=== PATIENT | female | born 1950 | race Caucasian/White ===

== ENCOUNTER 2017-09-18 21:35 | Emergency (ER) | payer MEDICARE, OTHER, SELFPAY | END 2017-09-19 01:28 | disposition home or self-care (01) | PROVIDERS: Emergency Provider Emergency Medicine; Family Provider Internal Medicine; PCP Internal Medicine; Visit Provider Emergency Medicine | DX: R07.9 Chest pain, unspecified (principal) | CPT/HCPCS: 71010; 71045; 71260; 71275; 80053; 81003; 82150; 83690; 83735; 84484; 85025; 85610; 85730; 93005; 93010; 99058; 99285; J1200; J2930; Q9967 ==

== ENCOUNTER 2019-11-02 13:22 | Emergency (ER) | payer MEDICARE, OTHER, SELFPAY ==
[2019-11-02] VITALS (7 sets, daily range): BP systolic 149–183; BP diastolic 72–83; PULSE 60–67; RESP 17–18; TEMP 36.8; O2SAT 94–99; BMI 35.3
--- NOTE | 2019-11-02 13:39 | ED.BACK ---
HPI - Back Pain/Injury <Shira Coe, PIPE FINISHER-BC - Last Filed: 11/02/19 19:36> General Chief Complaint: Back Pain/Injury Stated Complaint: back pain Time Seen by Provider: 11/02/19 13:29 Source: EMS Mode of arrival: EMS Limitations: no limitations History of Present Illness HPI Narrative: The patient is a 69-year-old female nonsmoker with a complicated medical history including atrial fibrillation on flecainide, pacemaker, hypertension, thunderclap headaches who presents with a chief complaint of right-sided flank and back pain that was so severe she could barely move. She states she was recently seen at [facility] in [facility] on 10/28 and diagnosed with a kidney infection. She states that she has been taking her antibiotics as needed. She took her tramadol this morning approximately 6:00 a.m., and states that her right-sided flank pain got so bad she could not walk. She denies any incontinence of bowel, incontinence of bladder numbness in her groin. She denies any numbness or tingling. She denies any falls or trauma. She denies any fevers. She has not taken anything for pain since 6:00 a.m.. Related Data Home Medications Medication Instructions Recorded Confirmed Valsartan (#DIOVAN) 80 mg PO QDAY #0 02/06/12 levothyroxine #0 02/06/12 metoprolol tartrate 25 mg PO BID #0 02/06/12 lansoprazole 30 mg PO QDAY #0 06/24/12 LIDOCAINE (LIDODERM) 5 % TOPICAL PRN PRN #0 01/13/16 flecainide 150 mg PO BID #0 tab 03/12/16 aspirin 81 mg PO QDAY #0 03/14/16 flecainide 50 mg PO BID #0 03/14/16 Previous Rx's Medication Instructions Recorded hydrocodone-acetaminophen [[place]] 1 tab PO Q4HP PRN #7 tab 09/17/16 cyclobenzaprine 10 mg PO Q8HP PRN #20 tab 11/19/16 amitriptyline 25 mg PO HS #90 tab 04/24/17 topiramate [Topamax] 0 PO SEE INSTRUCTIONS #60 tab 04/24/17 cyclobenzaprine 10 mg PO TID PRN #20 tab 11/02/19 hydrocodone-acetaminophen [[place]] 1 tab PO Q4-6H PRN #10 tab 11/02/19 lidocaine 1 patch TOP DAILY PRN #15 each 11/02/19 prednisone 40 mg PO DAILY #10 tab 11/02/19 Allergies Allergy/AdvReac Type Severity Reaction Status Date / Time celecoxib [CELECOXIB] Allergy Unknown Verified 11/02/19 13:35 lactobacillus [LACTOBACILLUS] Allergy Unknown Verified 11/02/19 13:35 morphine [MORPHINE] Allergy Unknown Verified 11/02/19 13:35 oxycodone [OXYCODONE] Allergy Unknown Verified 11/02/19 13:35 IP DYE Allergy Mild Uncoded 11/02/19 13:35 Review of Systems <LING Segal - Last Filed: 11/02/19 19:36> Review of Systems Narrative: GENERAL: Denies chills, fatigue, malaise, fever, sweats. HEENT: Denies sinus pain, ear pain, sore throat, difficulty swallowing, dizziness. RESPIRATORY: Denies dyspnea, cough, wheezing, hemoptysis, sputum. CARDIOVASCULAR: Denies chest pain, palpitations, orthopnea, edema, GASTROINTESTINAL: Denies nausea, vomiting, abdominal pain, diarrhea, constipation, melena. : See HPI MUSCULOSKELETAL: See HPI SKIN: Denies rash, skin lesions, or other NEUROLOGIC: Denies weakness, headache, numbness, change in speech, confusion, seizures, incoordination. PSYCHIATRIC: No concerning psychosocial issues. 12 point review of systems is negative except for those stated above Patient History <LING Segal - Last Filed: 11/02/19 19:36> Surgical History (Updated 10/02/17 @ 06:01 by Conversion Provider) History of carpal tunnel repair History of gastric bypass History of knee replacement History of knee replacement Presence of cardiac pacemaker Status post breast lumpectomy Status post cholecystectomy Status post dilation and curettage Status post surgery (04/09/15) Family History (Updated 01/12/16 @ 00:00 by Conversion Provider) Father Cancer Social History Smoking Status: Never smoker Smoking Status: Never smoker Substance Use Type: does not use Exam <LING Segal - Last Filed: 11/02/19 19:36> Narrative Exam Narrative: GENERAL: Was female lying on stretcher, appears uncomfortable HEAD: Atraumatic. Normocephalic. No temporal or scalp tenderness. EYES: Pupils equal round and reactive. Extraocular motions intact. No scleral icterus. No injection or drainage. ENT: Nose without bleeding, purulent drainage or septal hematoma. Throat without erythema, tonsillar hypertrophy or exudate. Uvula midline. Airway patent. NECK: Trachea midline. No JVD or lymphadenopathy. Supple, nontender, no meningeal signs. CARDIOVASCULAR: Regular rate and rhythm RESPIRATORY: Clear to auscultation. Breath sounds equal bilaterally. No wheezes, rales, or rhonchi. No cough. No increased respiratory effort. No accessory muscle use. GASTROINTESTINAL: Abdomen soft, non-tender, nondistended. No hepato-splenomegaly, or palpable masses. No guarding. EXTREMITIES: No clubbing, cyanosis, or edema. No joint tenderness, effusion, or edema noted. BACK: No pain to CT or L-spine palpation. Pain to right paraspinal muscle palpation. NEURO: AOx3. SKIN: No rash or erythema on visible skin. Initial Vital Signs Initial Vital Signs: Vital Signs Temperature 98.3 F 11/02/19 13:35 Pulse Rate 66 11/02/19 13:35 Respiratory Rate 18 11/02/19 13:35 Blood Pressure 183/83 H 11/02/19 13:35 Pulse Oximetry 97 11/02/19 13:35 <Baldo Hussein DO - Last Filed: 11/03/19 07:08> Initial Vital Signs Initial Vital Signs: Vital Signs Temperature 98.3 F 11/02/19 13:35 Pulse Rate 66 11/02/19 13:35 Respiratory Rate 18 11/02/19 13:35 Blood Pressure 183/83 H 11/02/19 13:35 Pulse Oximetry 97 11/02/19 13:35 Course <LING Segal - Last Filed: 11/02/19 19:36> Orders Ordered: Discontinued Medications Hydrocodone Bitart/Acetaminophen (Vicodin 5/325 Prepack) 1 bottle MISC SEEINSTR ONE Stop: 11/02/19 18:32 Last Admin: 11/02/19 19:17 Dose: 1 bottle Documented by: MEISENB Cyclobenzaprine HCl (Flexeril) 10 mg PO NOW ONE Stop: 11/02/19 13:59 Last Admin: 11/02/19 14:12 Dose: 10 mg Documented by: MEISENLizzie Cyclobenzaprine HCl (Flexeril 10 Mg Prepack) [address] [facility] SEEINSTR ONE Stop: 11/02/19 18:32 Last Admin: 11/02/19 19:17 Dose: 1 bottle Documented by: MEISENLizzie Hydromorphone HCl (Dilaudid) 0.5 mg IV NOW ONE Stop: 11/02/19 16:37 Last Admin: 11/02/19 16:45 Dose: 0.5 mg Documented by: AMRITASENLizzie Sodium Chloride (Normal Saline 0.9%) 1,000 mls @ 1,000 mls/hr IV BOLUS ONE Stop: 11/02/19 14:57 Last Infusion: 11/02/19 15:22 Dose: 0 mls/hr Documented by: Admin: 11/02/19 14:11 Dose: 1,000 mls/hr Documented by: DAVID Lidocaine (Lidoderm) 1 each TOP NOW ONE Stop: 11/02/19 15:58 Last Admin: 11/02/19 16:08 Dose: 1 each Documented by: AMRITASENLizzie Oxycodone/Acetaminophen (Percocet 5/325) 1 tab PO NOW ONE Stop: 11/02/19 14:44 Last Admin: 11/02/19 15:23 Dose: Not Given Documented by: AMRITASENLizzie Prednisone (Deltasone) 60 mg PO NOW ONE Stop: 11/02/19 14:44 Last Admin: 11/02/19 15:02 Dose: 60 mg Documented by: AMRITASENLizzie Tramadol HCl (Ultram) 50 mg PO NOW ONE Stop: 11/02/19 14:49 Last Admin: 11/02/19 15:02 Dose: 50 mg Documented by: AMRITASENLizzie Reevaluation(s) Reevaluation #1: The patient is lying in a stretcher, states that she recently drove [place] the country, sleeping on hotel beds. She is concerned that the possibility of the fact that she slept in the car last night for 2 hours while sitting up impacted her pain and caused her back ?to seize up. Time: 17:21 Vital Signs Vital signs: Vital Signs - 8 hr 11/02/19 13:35 11/02/19 14:10 11/02/19 16:30 Temperature 98.3 F Pulse Rate 66 60 60 Respiratory Rate 18 18 18 Blood Pressure 183/83 H Blood Pressure [Right Arm] 163/73 H 167/74 H Pulse Oximetry 97 99 97 11/02/19 16:31 11/02/19 17:00 11/02/19 17:53 Temperature Pulse Rate 62 67 61 Respiratory Rate 18 18 18 Blood Pressure Blood Pressure [Right Arm] 168/79 H 165/73 H 156/72 H Pulse Oximetry 98 94 11/02/19 19:06 Temperature Pulse Rate 61 Respiratory Rate 17 Blood Pressure Blood Pressure [Right Arm] 149/73 H Pulse Oximetry 97 <Baldo Hussein, DO - Last Filed: 11/03/19 07:08> Orders Ordered: Discontinued Medications Hydrocodone Bitart/Acetaminophen (Vicodin 5/325 Prepack) 1 bottle MISC SEEINSTR ONE Stop: 11/02/19 18:32 Last Admin: 11/02/19 19:17 Dose: 1 bottle Documented by: MEISENB Cyclobenzaprine HCl (Flexeril) 10 mg PO NOW ONE Stop: 11/02/19 13:59 Last Admin: 11/02/19 14:12 Dose: 10 mg Documented by: MEISENB Cyclobenzaprine HCl (Flexeril 10 Mg Prepack) 1 bottle MISC SEEINSTR ONE Stop: 11/02/19 18:32 Last Admin: 11/02/19 19:17 Dose: 1 bottle Documented by: MEISENB Hydromorphone HCl (Dilaudid) 0.5 mg IV NOW ONE Stop: 11/02/19 16:37 Last Admin: 11/02/19 16:45 Dose: 0.5 mg Documented by: MEISENB Sodium Chloride (Normal Saline 0.9%) 1,000 mls @ 1,000 mls/hr IV BOLUS ONE Stop: 11/02/19 14:57 Last Infusion: 11/02/19 15:22 Dose: 0 mls/hr Documented by: Admin: 11/02/19 14:11 Dose: 1,000 mls/hr Documented by: MEISENB Lidocaine (Lidoderm) 1 each TOP NOW ONE Stop: 11/02/19 15:58 Last Admin: 11/02/19 16:08 Dose: 1 each Documented by: MEISENB Oxycodone/Acetaminophen (Percocet 5/325) 1 tab PO NOW ONE Stop: 11/02/19 14:44 Last Admin: 11/02/19 15:23 Dose: Not Given Documented by: DAVID Prednisone (Deltasone) 60 mg PO NOW ONE Stop: 11/02/19 14:44 Last Admin: 11/02/19 15:02 Dose: 60 mg Documented by: DAVID Tramadol HCl (Ultram) 50 mg PO NOW ONE Stop: 11/02/19 14:49 Last Admin: 11/02/19 15:02 Dose: 50 mg Documented by: DAVID Vital Signs Vital signs: Vital Signs - 8 hr 11/02/19 13:35 11/02/19 14:10 11/02/19 16:30 Temperature 98.3 F Pulse Rate 66 60 60 Respiratory Rate 18 18 18 Blood Pressure 183/83 H Blood Pressure [Right Arm] 163/73 H 167/74 H Pulse Oximetry 97 99 97 11/02/19 16:31 11/02/19 17:00 11/02/19 17:53 Temperature Pulse Rate 62 67 61 Respiratory Rate 18 18 18 Blood Pressure Blood Pressure [Right Arm] 168/79 H 165/73 H 156/72 H Pulse Oximetry 98 94 11/02/19 19:06 Temperature Pulse Rate 61 Respiratory Rate 17 Blood Pressure Blood Pressure [Right Arm] 149/73 H Pulse Oximetry 97 MDM - Back Pain/Injury <SYDNIE Segal-BC - Last Filed: 11/02/19 19:36> Lab Data Result diagrams: 11/02/19 14:20 11/02/19 13:55 Labs: Lab Results 11/02/19 11/02/19 11/02/19 Range/Units 13:55 13:55 13:55 WBC (4.5-11.0) X10^3/uL RBC (4.0-5.2) X10^6/uL Hgb (12.0-16.0) g/dL Hct (36-46) % MCV (80-100) fL MCH (26-34) PG MCHC (30-36) % RDW (11.6-14.8) % Plt Count (150-400) X10^3/uL Neut % (Auto) (50-75) % Lymph % (Auto) (25-40) % [place] % (Auto) (3-14) % Eos % (Auto) (2-4) % Baso % (Auto) (0-2) % Neut # (Auto) (1426-3765) /uL Lymph # (Auto) (9190-7081) /uL [place] # (Auto) (0-900) /uL Eos # (Auto) (0-450) /uL Baso # (Auto) (0-100) /uL Sodium 139 (137-145) mmol/L Potassium 4.7 (3.4-5.1) mmol/L Chloride 108 H (98-107) mmol/L Carbon Dioxide 23 (22-32) mmol/L BUN 15 (7-17) mg/dL Creatinine 0.78 (0.52-1.04) mg/dL Estimated GFR > 60.0 (>60) mL/min BUN/Creatinine Ratio 19.2 (6-22) Glucose 105 (80-110) mg/dL Lactate 1.1 (0.7-2.1) mmol/L Calcium 8.8 (8.4-10.2) mg/dL Total Bilirubin 1.2 (0.2-1.3) mg/dL AST 27 (14-36) IU/L ALT 11 (<35) IU/L Alkaline Phosphatase 107 (38-126) U/L Total Protein 6.8 (6.3-8.2) g/dL Albumin 3.7 (3.5-5.0) g/dL Globulin 3.1 (1.7-4.1) g/dL Albumin/Globulin Ratio 1.2 (1.0-2.8) Amylase 55 (30-110) U/L Lipase 85 (23-300) U/L Procalcitonin < 0.05 (<0.5) ng/mL Urine RBC (0-5/HPF) Urine WBC (0-5/HPF) Ur Squamous Epith Cells (0-5/HPF) Ur Transition Epith Cell (0-5/HPF) Urine Bacteria (None) Ur Culture Indicated? 11/02/19 11/02/19 Range/Units 14:20 15:31 WBC 6.5 (4.5-11.0) X10^3/uL RBC 4.39 (4.0-5.2) X10^6/uL Hgb 11.9 L (12.0-16.0) g/dL Hct 36.7 (36-46) % MCV 83.7 (80-100) fL MCH 27.0 (26-34) PG MCHC 32.3 (30-36) % RDW 15.0 H (11.6-14.8) % Plt Count 214 (150-400) X10^3/uL Neut % (Auto) 69.9 (50-75) % Lymph % (Auto) 19.4 L (25-40) % [place] % (Auto) 7.6 (3-14) % Eos % (Auto) 2.4 (2-4) % Baso % (Auto) 0.7 (0-2) % Neut # (Auto) 4500 (8131-6560) /uL Lymph # (Auto) 1300 (9748-1511) /uL [place] # (Auto) 500 (0-900) /uL Eos # (Auto) 200 (0-450) /uL Baso # (Auto) 0 (0-100) /uL Sodium (137-145) mmol/L Potassium (3.4-5.1) mmol/L Chloride (98-107) mmol/L Carbon Dioxide (22-32) mmol/L BUN (7-17) mg/dL Creatinine (0.52-1.04) mg/dL Estimated GFR (>60) mL/min BUN/Creatinine Ratio (6-22) Glucose (80-110) mg/dL Lactate (0.7-2.1) mmol/L Calcium (8.4-10.2) mg/dL Total Bilirubin (0.2-1.3) mg/dL AST (14-36) IU/L ALT (<35) IU/L Alkaline Phosphatase (38-126) U/L Total Protein (6.3-8.2) g/dL Albumin (3.5-5.0) g/dL Globulin (1.7-4.1) g/dL Albumin/Globulin Ratio (1.0-2.8) Amylase (30-110) U/L Lipase (23-300) U/L Procalcitonin (<0.5) ng/mL Urine RBC 0-1/hpf (0-5/HPF) Urine WBC 0-1/hpf (0-5/HPF) Ur Squamous Epith Cells 5-10 /hpf H (0-5/HPF) Ur Transition Epith Cell 5-10/hpf H (0-5/HPF) Urine Bacteria None seen (None) Ur Culture Indicated? Cult not indicated Urine Dip Bedside Urine Glucose Negative Bedside Urine Bilirubin + 1 Bedside Urine Ketone +/- 5 Urine Specific [place] 1.015 Bedside Urine Occult Blood - Negative Bedside Urine pH 7.0 Bedside Urine Protein +/- 15 Bedside Urine Urobilinogen +/- 1mg Bedside Urine Nitrite - Negative Bedside Urine Leukocytes - Negative Esterase Imaging Data lumbar xray : Radiologist's Impression: [address] [place] [id number] XRay Report Signed Patient: Deneen Gong [facility]#: [id number] : 9Acct:[id number] Age/Sex: 69 / FDate of Service: 11/02/19 Loc: ED Accession Number: [id number] Procedure: XR lumbar spine 2-3V Ordering Provider: Shira CoeP-BC PROCEDURE: XR LUMBAR SPINE 2-3V INDICATIONS: low back pain TECHNIQUE: 3 views of the lumbar spine were acquired. COMPARISON: [facility], CT, L-SPINE WITHOUT CONTRAST, 12/11/2016, 7:35. FINDINGS: Bones: Mild levoconvex scoliotic curvature is noted. 5 nonrib-bearing, lumbar type vertebral bodies are seen. Minimal retrolisthesis is seen at L2-L3. There is mild retrolisthesis seen at the L3-L4 level. There is moderate disc space narrowing seen at the L3-L4 level, with mild disc space narrowing at L5-S1. Age-appropriate lower thoracic spine degenerative changes are seen. Facet arthropathy is seen, which is most prominent inferiorly. No displaced fractures are seen. No suspicious lytic or blastic lesions are seen. Soft tissues: Overlying bowel gas pattern is normal. No suspicious soft tissue calcifications. Epigastric clips and lucy are seen. Left-sided staple lines are seen. Cholecystectomy clips are seen. Right-sided abdominal clips are also seen. Left pelvic clips can be seen. IMPRESSION: Levoconvex scoliotic curvature and degenerative changes are seen. Numerous soft tissue postoperative changes are seen. Dictated by: Beto Kasper M.D. on 11/02/2019 at 15:30 Approved by: Beto Kasper M.D. on 11/02/2019 at 15:33 MDM Narrative Medical decision making narrative: The patient is a 6-year-old female who presents with a chief complaint of right-sided flank pain so severe she cannot walk. She states she was recently diagnosed with pyelonephritis, placed on antibiotics and as she has been taking well. Records were obtained from an outside facility, lab work illustrate her infection is improving. Urinalysis is clear, no leukocytosis, no elevated procalcitonin and lactate. She feels much improved after the above-stated therapies, and realizes that she thinks that her back pain is from sleeping in a car for 2 hours last night. She denies any incontinence of bowel incontinence of bladder or numbness in her groin and states understanding of these are return precautions. I discussed at length follow up with primary care provider as well as coming back to the emergency department for any acute concerns. She is able to ambulate with a steady gait. Patient has no questions or concerns upon discharge and states understanding return precautions as well as follow-up care. <Baldo Hussein, DO - Last Filed: 11/03/19 07:08> Lab Data Labs: Lab Results 11/02/19 11/02/19 11/02/19 Range/Units 13:55 13:55 13:55 WBC (4.5-11.0) X10^3/uL RBC (4.0-5.2) X10^6/uL Hgb (12.0-16.0) g/dL Hct (36-46) % MCV (80-100) fL MCH (26-34) PG MCHC (30-36) % RDW (11.6-14.8) % Plt Count (150-400) X10^3/uL Neut % (Auto) (50-75) % Lymph % (Auto) (25-40) % [place] % (Auto) (3-14) % Eos % (Auto) (2-4) % Baso % (Auto) (0-2) % Neut # (Auto) (6736-7521) /uL Lymph # (Auto) (1608-1514) /uL [place] # (Auto) (0-900) /uL Eos # (Auto) (0-450) /uL Baso # (Auto) (0-100) /uL Sodium 139 (137-145) mmol/L Potassium 4.7 (3.4-5.1) mmol/L Chloride 108 H (98-107) mmol/L Carbon Dioxide 23 (22-32) mmol/L BUN 15 (7-17) mg/dL Creatinine 0.78 (0.52-1.04) mg/dL Estimated GFR > 60.0 (>60) mL/min BUN/Creatinine Ratio 19.2 (6-22) Glucose 105 (80-110) mg/dL Lactate 1.1 (0.7-2.1) mmol/L Calcium 8.8 (8.4-10.2) mg/dL Total Bilirubin 1.2 (0.2-1.3) mg/dL AST 27 (14-36) IU/L ALT 11 (<35) IU/L Alkaline Phosphatase 107 (38-126) U/L Total Protein 6.8 (6.3-8.2) g/dL Albumin 3.7 (3.5-5.0) g/dL Globulin 3.1 (1.7-4.1) g/dL Albumin/Globulin Ratio 1.2 (1.0-2.8) Amylase 55 (30-110) U/L Lipase 85 (23-300) U/L Procalcitonin < 0.05 (<0.5) ng/mL Urine RBC (0-5/HPF) Urine WBC (0-5/HPF) Ur Squamous Epith Cells (0-5/HPF) Ur Transition Epith Cell (0-5/HPF) Urine Bacteria (None) Ur Culture Indicated? 11/02/19 11/02/19 Range/Units 14:20 15:31 WBC 6.5 (4.5-11.0) X10^3/uL RBC 4.39 (4.0-5.2) X10^6/uL Hgb 11.9 L (12.0-16.0) g/dL Hct 36.7 (36-46) % MCV 83.7 (80-100) fL MCH 27.0 (26-34) PG MCHC 32.3 (30-36) % RDW 15.0 H (11.6-14.8) % Plt Count 214 (150-400) X10^3/uL Neut % (Auto) 69.9 (50-75) % Lymph % (Auto) 19.4 L (25-40) % [place] % (Auto) 7.6 (3-14) % Eos % (Auto) 2.4 (2-4) % Baso % (Auto) 0.7 (0-2) % Neut # (Auto) 4500 (0870-9863) /uL Lymph # (Auto) 1300 (5839-7681) /uL [place] # (Auto) 500 (0-900) /uL Eos # (Auto) 200 (0-450) /uL Baso # (Auto) 0 (0-100) /uL Sodium (137-145) mmol/L Potassium (3.4-5.1) mmol/L Chloride (98-107) mmol/L Carbon Dioxide (22-32) mmol/L BUN (7-17) mg/dL Creatinine (0.52-1.04) mg/dL Estimated GFR (>60) mL/min BUN/Creatinine Ratio (6-22) Glucose (80-110) mg/dL Lactate (0.7-2.1) mmol/L Calcium (8.4-10.2) mg/dL Total Bilirubin (0.2-1.3) mg/dL AST (14-36) IU/L ALT (<35) IU/L Alkaline Phosphatase (38-126) U/L Total Protein (6.3-8.2) g/dL Albumin (3.5-5.0) g/dL Globulin (1.7-4.1) g/dL Albumin/Globulin Ratio (1.0-2.8) Amylase (30-110) U/L Lipase (23-300) U/L Procalcitonin (<0.5) ng/mL Urine RBC 0-1/hpf (0-5/HPF) Urine WBC 0-1/hpf (0-5/HPF) Ur Squamous Epith Cells 5-10 /hpf H (0-5/HPF) Ur Transition Epith Cell 5-10/hpf H (0-5/HPF) Urine Bacteria None seen (None) Ur Culture Indicated? Cult not indicated Urine Dip Bedside Urine Glucose Negative Bedside Urine Bilirubin + 1 Bedside Urine Ketone +/- 5 Urine Specific [place] 1.015 Bedside Urine Occult Blood - Negative Bedside Urine pH 7.0 Bedside Urine Protein +/- 15 Bedside Urine Urobilinogen +/- 1mg Bedside Urine Nitrite - Negative Bedside Urine Leukocytes - Negative Esterase Discharge Plan Departure Patient Disposition: Home Clinical Impression: Acute back pain Qualifiers: Back pain location: low back pain Back pain laterality: right Sciatica presence: with sciatica Sciatica laterality: sciatica of right side Qualified Code(s): M54.41 - Lumbago with sciatica, right side Discharge Date/Time: 11/02/19 19:20 Instructions: DI for Back Pain With Sciatica, DI for Back Spasm, DI for Back Strain or Sprain Activity Restrictions/Additional Instructions: Thank you for trusting us with your care today As I discussed, your x-ray shows no acute fracture. Your lab work came back well, your urine shows no signs of infection. I believe that your pain is due to muscle spasm of the right side of her lower back I sent 3 prescriptions to the [facility] pharmacy in [place] and also gave you a written prescription for pain medicine. I sent a prescription of lidocaine patches, muscle relaxers and steroids I have given you a prescription of a narcotic for pain. Be aware that this can be constipating and sedating. I encouraged taking with a stool softener, pushing fluids and fiber. Do not take and drive, operate heavy machinery, etc. Do not combine it with any other sedating substances such as alcohol. The combination of narcotics and alcohol and/or other sedatives can be lethal. Please be aware that the muscle relaxers could also be sedating Please follow-up with primary care provider in the next few days. Please come back to the emergency department for any acute concerns Prescriptions: New lidocaine 5 % adhesive patch,medicated 1 patch TOP DAILY PRN (Reason: pain) Qty: 15 RF: 0 prednisone 20 mg tablet 40 mg PO DAILY Qty: 10 RF: 0 cyclobenzaprine 10 mg tablet 10 mg PO TID PRN (Reason: muscle spasm) Qty: 20 RF: 0 hydrocodone-acetaminophen [[place]] 5-325 mg tablet 1 tab PO Q4-6H PRN (Reason: pain) Qty: 10 RF: 0 No Action Valsartan (#DIOVAN) 80 mg PO QDAY Qty: 0 RF: 0 levothyroxine 88 MCG tablet Qty: 0 RF: 0 metoprolol tartrate 25 MG tablet 25 mg PO BID Qty: 0 RF: 0 lansoprazole 30 MG capsule,delayed release(DR/EC) 30 mg PO QDAY Qty: 0 RF: 0 LIDOCAINE (LIDODERM) 5 % Topical PRN PRNQty: 0 RF: 0 flecainide 150 MG tablet 150 mg PO BID Qty: 0 RF: 0 flecainide 50 MG tablet 50 mg PO BID Qty: 0 RF: 0 aspirin 81 MG tablet,delayed release (DR/EC) 81 mg PO QDAY Qty: 0 RF: 0 hydrocodone-acetaminophen [[place]] 5 MG/325 MG tablet 1 tab PO Q4HP PRNQty: 7 RF: 0 cyclobenzaprine 10 MG tablet 10 mg PO Q8HP PRNQty: 20 RF: 0 amitriptyline 25 MG tablet 25 mg PO HS Qty: 90 RF: 3 topiramate [Topamax] 25 MG tablet 0 PO SEE INSTRUCTIONS Qty: 60 RF: 3 Referrals: [facility] [Outside] <Baldo Hussein DO - Last Filed: 11/03/19 07:08> [facility] ED [facility] I was immediately available in the department for consultation. This documentation has been reviewed and I agree with assessment and plan. Supervised by Baldo Hussein DO
[2019-11-02] MEDS: SODIUM CHLORIDE 0.9% 1,000 ML 1000 ML IV (14:11)
[2019-11-02] MEDS: CYCLOBENZAPRINE 10 MG TABLET PO (14:12)
[2019-11-02 14:22] LABS: Alanine Aminotransferase 11 IU/L (<35); Albumin 3.7 g/dL (3.5-5.0); Albumin Globulin Ratio 1.2 (1.0-2.8); Alkaline Phosphatase 107 U/L (38-126); Amylase 55 U/L (30-110); Aspartate Aminotransferase 27 IU/L (14-36); BUN Creatinine Ratio 19.2 (6-22); Bilirubin Total 1.2 mg/dL (0.2-1.3); Blood Urea Nitrogen 15 mg/dL (7-17); Calcium 8.8 mg/dL (8.4-10.2); Carbon Dioxide 23 mmol/L (22-32); Chloride 108 mmol/L (98-107); Estimated Glomerular Filt Rate > 60.0 mL/min (>60); Globulin 3.1 g/dL (1.7-4.1); Glucose 105 mg/dL (80-110); Lipase 85 U/L (23-300); Potassium 4.7 mmol/L (3.4-5.1); Sodium 139 mmol/L (137-145); Total Protein 6.8 g/dL (6.3-8.2)
[2019-11-02 14:23] LABS: HEMOLYSIS 63 (0-50); Lactate (Lactic Acid) 1.1 mmol/L (0.7-2.1)
[2019-11-02 14:29] LABS: Add Manual Diff / Slide Review NO; Basophils Absolute Auto 0 /uL (0-100); Basophils Percent Auto 0.7 % (0-2); Eosinophils Absolute Auto 200 /uL (0-450); Eosinophils Percent Auto 2.4 % (2-4); Hematocrit 36.7 % (36-46); Hemoglobin 11.9 g/dL (12.0-16.0); Lymphocytes Absolute Auto 1300 /uL (1100-4500); Lymphocytes Percent Auto 19.4 % (25-40); Mean Corpuscular HGB Conc 32.3 % (30-36); Mean Corpuscular Volume 83.7 fL (80-100); Monocytes Absolute Auto 500 /uL (0-900); Monocytes Percent Auto 7.6 % (3-14); Neutrophils Absolute Auto 4500 /uL (1500-7000); Neutrophils Percent Auto 69.9 % (50-75); Platelet Count 214 X10^3/uL (150-400); Red Blood Cell Count 4.39 X10^6/uL (4.0-5.2); White Blood Cell Count 6.5 X10^3/uL (4.5-11.0)
[2019-11-02 14:45] LABS: Procalcitonin < 0.05 ng/mL (<0.5)
[2019-11-02] MEDS: TRAMADOL 50 MG TABLET PO (15:02)
[2019-11-02] MEDS: predniSONE 20 MG TABLET 60 MG PO (15:02)
[2019-11-02 15:51] LABS: Bacteria Urine None Seen
--- NOTE | 2019-11-02 15:57 | DI.RAD.S_ITS ---
PROCEDURE: XR LUMBAR SPINE 2-3V INDICATIONS: low back pain TECHNIQUE: 3 views of the lumbar spine were acquired. COMPARISON: [facility], CT, L-SPINE WITHOUT CONTRAST, 12/11/2016, 7:35. FINDINGS: Bones: Mild levoconvex scoliotic curvature is noted. 5 nonrib-bearing, lumbar type vertebral bodies are seen. Minimal retrolisthesis is seen at L2-L3. There is mild retrolisthesis seen at the L3-L4 level. There is moderate disc space narrowing seen at the L3-L4 level, with mild disc space narrowing at L5-S1. Age-appropriate lower thoracic spine degenerative changes are seen. Facet arthropathy is seen, which is most prominent inferiorly. No displaced fractures are seen. No suspicious lytic or blastic lesions are seen. Soft tissues: Overlying bowel gas pattern is normal. No suspicious soft tissue calcifications. Epigastric clips and lucy are seen. Left-sided staple lines are seen. Cholecystectomy clips are seen. Right-sided abdominal clips are also seen. Left pelvic clips can be seen. IMPRESSION: Levoconvex scoliotic curvature and degenerative changes are seen. Numerous soft tissue postoperative changes are seen. Dictated by: Beto Kasper M.D. on 11/02/2019 at 15:30 Approved by: Beto Kasper M.D. on 11/02/2019 at 15:33
[2019-11-02 16:03] LABS: Culture Indicated Urine Cult Not Indicated; RBC Urine 0-1/HPF (0-5/HPF); Squamous Epithelial Cell Urine 5-10 /HPF (0-5/HPF); Transitional Epi Cells Urine 5-10/HPF (0-5/HPF); WBC Urine 0-1/HPF (0-5/HPF)
[2019-11-02] MEDS: LIDOCAINE PATCH 1 EACH ADH..PATCH TOP (16:08)
[2019-11-02] MEDS: HYDROMORPHONE 0.5 MG INJ IV (16:45)
[2019-11-02] MEDS: HYDROCODONE/ACET 5/325 PREPACK 1 BOTTLE MISC (19:17)
[2019-11-02] MEDS: CYCLOBENZAPRINE 10 MG PREPACK 1 BOTTLE MISC (19:17)
== END 2019-11-02 19:20 | disposition home or self-care (01) ==
PROVIDERS: Emergency Provider Nurse Practitioner Family; Family Provider Internal Medicine
DX: M54.41 Lumbago with sciatica, right side (principal); I48.91 Unspecified atrial fibrillation; Z79.01 Long term (current) use of anticoagulants; Z95.0 Presence of cardiac pacemaker; I10 Essential (primary) hypertension
CPT/HCPCS: 36415; 72100; 80053; 81003; 81015; 82150; 83605; 83690; 84145; 85025; 96361; 96374; 99284; 99285; J1170

== ENCOUNTER 2020-05-26 17:13 | Emergency (ER) | payer MEDICARE, OTHER, SELFPAY ==
[2020-05-26] VITALS (10 sets, daily range): BP systolic 141–163; BP diastolic 65–74; PULSE 59–62; RESP 18–20; TEMP 36.2–37.2; O2SAT 94–100
--- NOTE | 2020-05-26 17:20 | DI.RAD.S_ITS ---
PROCEDURE: XR HIP W PEL IF DONE LT 2V INDICATIONS: fall, lt hip pain TECHNIQUE: AP pelvis with lateral view(s) of the left hip(s). COMPARISON: [facility], CR, XR PELVIS W LATERAL HIP LT, 09/29/2016, 11:43. FINDINGS: Bones: There is asymmetric sclerosis at the left femoral neck compared to the right. The trabeculae may be disrupted. This is more prominent compared to 2017. No dislocations. A bilateral mild to moderate joint space narrowing. Pelvic ring appears intact. No suspicious bony lesions. Soft tissues: The visualized bowel gas pattern is normal. No suspicious soft tissue calcifications. Surgical clips in the pelvis. IMPRESSION: Asymmetric sclerosis of the left femoral neck. This raises the possibility of nondisplaced fracture. CT bony pelvis could be performed for further evaluation if clinically indicated. Comment: Findings were discussed with Shira Santoro at the time of dictation. Dictated by: Kar Mckenna M.D. on 05/26/2020 at 18:33 Approved by: Kar Mckenna M.D. on 05/26/2020 at 18:41
--- NOTE | 2020-05-26 18:53 | ED_ITS ---
HPI - Extremity Injury (Lower) General Chief Complaint: Extremity Injury, Lower Stated Complaint: LEFT SIDED PAIN S/P FALL Time Seen by Provider: 05/26/20 18:00 Source: patient and family Mode of arrival: Ambulatory Limitations: no limitations History of Present Illness HPI Narrative: Patient is a 70-year-old female. Not on anticoagulation who last evening was standing on a stool and fell off landing on her left side. She reports she heard her left hip however was able to ambulate last night without much problem. Woke up this morning and quite a bit more discomfort in the left hip. She has had a femoral fracture in the past. Had a IM penny that has subsequently been removed. Came into the emergency department as the pain continued throughout the day. She was ambulatory into the emergency department. Related Data Home Medications Medication Instructions Recorded Confirmed Valsartan (#DIOVAN) 80 mg PO QDAY #0 02/06/12 levothyroxine #0 02/06/12 metoprolol tartrate 25 mg PO BID #0 02/06/12 lansoprazole 30 mg PO QDAY #0 06/24/12 LIDOCAINE (LIDODERM) 5 % TOPICAL PRN PRN #0 01/13/16 flecainide 150 mg PO BID #0 tab 03/12/16 aspirin 81 mg PO QDAY #0 03/14/16 flecainide 50 mg PO BID #0 03/14/16 Previous Rx's Medication Instructions Recorded hydrocodone-acetaminophen [[place]] 1 tab PO Q4HP PRN #7 tab 09/17/16 cyclobenzaprine 10 mg PO Q8HP PRN #20 tab 11/19/16 amitriptyline 25 mg PO HS #90 tab 04/24/17 topiramate [Topamax] 0 PO SEE INSTRUCTIONS #60 tab 04/24/17 cyclobenzaprine 10 mg PO TID PRN #20 tab 11/02/19 hydrocodone-acetaminophen [[place]] 1 tab PO Q4-6H PRN #10 tab 11/02/19 lidocaine 1 patch TOP DAILY PRN #15 each 11/02/19 prednisone 40 mg PO DAILY #10 tab 11/02/19 Allergies Allergy/AdvReac Type Severity Reaction Status Date / Time celecoxib [CELECOXIB] Allergy Unknown Verified 11/02/19 13:35 lactobacillus [LACTOBACILLUS] Allergy Unknown Verified 11/02/19 13:35 morphine [MORPHINE] Allergy Unknown Verified 11/02/19 13:35 oxycodone [OXYCODONE] Allergy Unknown Verified 11/02/19 13:35 Iodine and Iodide Containing Allergy Verified 05/26/20 17:24 Produc IP DYE Allergy Mild Uncoded 11/02/19 13:35 Review of Systems Constitutional Constitutional: Denies fever(s) and Denies headache(s) ENT Ears, Nose, Mouth, and Throat: Denies vertigo and Denies headache(s) Cardiovascular Cardiovascular: Denies chest pain and Denies dyspnea Respiratory Respiratory: Denies dyspnea Musculoskeletal Comments: Left hip pain Integumentary/Breasts Skin/Breast: Denies lesions and Denies rash Neurologic Neurologic: Denies behavioral changes, Denies confusion, Denies vertigo and Denies headache(s) Psychiatric Psychiatric: Denies behavioral changes and Denies confusion Hematologic/Lymphatic Hematologic/Lymphatic: Denies easy bleeding and Denies easy bruising Allergic/Immunologic Allergic/Immunologic: Denies urticaria Patient History Medical History Endometrial hyperplasia Postmenopausal bleeding Uterine mass Surgical History History of carpal tunnel repair History of gastric bypass History of knee replacement History of knee replacement Presence of cardiac pacemaker Status post breast lumpectomy Status post cholecystectomy Status post dilation and curettage Status post surgery (04/09/15) Family History (Updated 01/12/16 @ 00:00 by Conversion Provider) Father Cancer Social History Smoking Status: Never smoker Smoking Status: Never smoker Substance Use Type: does not use Exam Initial Vital Signs Initial Vital Signs: Vital Signs Temperature 97.2 F L 05/26/20 17:21 Pulse Rate 62 05/26/20 17:21 Respiratory Rate 20 05/26/20 17:21 Blood Pressure 149/65 H 05/26/20 17:21 Pulse Oximetry 100 05/26/20 17:21 Const General: cooperative and comfortable Limitations: mental status not altered HENMT Head: normal to inspection and normocephalic Resp Effort & Inspection: normal respiratory effort Cardio Rate: regular rate Skin Lesions: no lesions Rashes: no rashes Extrem General: capillary refill normal Other: Tenderness to palpation lateral aspect left hip Psych Appearance: well kempt Course Orders Ordered: ED Orders 05/26/20 17:20 XR hip w pel if done LT 2V Stat 05/26/20 18:53 CT pelvis wo con Stat Discontinued Medications Tramadol HCl (Tramadol 50 Mg Tablet) 50 mg PO NOW ONE Stop: 05/26/20 19:55 Last Admin: 05/26/20 19:58 Dose: 50 mg Documented by: KENROY Vital Signs Vital signs: Vital Signs - 8 hr 05/26/20 17:21 05/26/20 18:37 05/26/20 18:39 Temperature 97.2 F L Pulse Rate 62 60 61 Respiratory Rate 20 18 Blood Pressure 149/65 H 141/65 H Pulse Oximetry 100 100 99 05/26/20 19:00 05/26/20 19:30 05/26/20 19:36 Temperature Pulse Rate 60 61 59 L Respiratory Rate Blood Pressure 149/68 H 156/74 H Pulse Oximetry 100 100 100 05/26/20 20:00 05/26/20 20:30 05/26/20 20:53 Temperature Pulse Rate 60 60 60 Respiratory Rate Blood Pressure 163/70 H Pulse Oximetry 100 100 94 05/26/20 20:59 Temperature 99.0 F Pulse Rate 60 Respiratory Rate 18 Blood Pressure 163/70 H Pulse Oximetry 99 MDM - Extremity Injury (Lower) Imaging Data Extremity x-ray #1: Radiologist's Impression: [address] [id number] ReportSigned Patient: Deneen Gong [facility]#: [id number]: 9Acct:[id number] ge/Sex: 70 / FDate of Service: 05/26/20Loc: EDAccession Number: [id number] Procedure: XR hip w pel if done LT 2V Ordering Provider: Shira Santoro D.O. PROCEDURE: XR HIP W PEL IF DONE LT 2V INDICATIONS: fall, lt hip pain TECHNIQUE: AP pelvis with lateral view(s) of the left hip(s). COMPARISON: [facility] [place], , XR PELVIS W LATERAL HIP LT, 09/29/2016, 11:43. FINDINGS: Bones: There is asymmetric sclerosis at the left femoral neck compared to the right. The trabeculae may be disrupted. This is more prominent compared to 2017. No dislocations. A bilateral mild to moderate joint space narrowing. Pelvic ring appears intact. No suspicious bony lesions. Soft tissues: The visualized bowel gas pattern is normal. No suspicious soft tissue calcifications. Surgical clips in the pelvis. IMPRESSION: Asymmetric sclerosis of the left femoral neck. This raises the possibility of nondisplaced fracture. CT bony pelvis could be performed for further evaluation if clinically indicated. Comment: Findings were discussed with Shira Santoro at the time of dictation. Dictated by: Kar Mckenna M.D. on 05/26/2020 at 18:33 Approved by: Kar Mckenna M.D. on 05/26/2020 at 18:41 CT pelvis: Radiologist's Impression: [address] [id number] Scan ReportSigned Patient: Deneen Gong [facility]#: [id number]: 9Acct:[id number]/Sex: 70 / FDate of Service: 05/26/20Loc: EDAccession Number: [id number] Procedure: CT pelvis wo con Ordering Provider: Isreal Virk D.O. PROCEDURE: CT PEL WO CON INDICATIONS: possible L prox fem fracture CT request by rads TECHNIQUE: Noncontrast 3 mm axial sections acquired through the bony pelvis, with coronal and sagittal reformatting. COMPARISON: [facility], [place], XR HIP W PEL IF DONE LT 2V, 05/26/2020, 17:48. FINDINGS: Image quality: Excellent. Bones: No fracture identified. Irregularity at the left femoral neck appears to be due to a nutrient foramen, (4/53). No dislocation. Moderate degenerative change of the hips. Mild scoliosis is suspected. Marked facet joint hypertrophy left L5. There is a small area of sclerosis in the left ilium which this most compatible with a bone island. Mild sclerosis adjacent to the right SI joint at the ilium. No aggressive appearing osseous lesion. Soft tissues: No free fluid. Small left ovarian cyst measuring 1.7 cm. Normal appendix. Vertically oriented postmenopausal uterus. A few subcutaneous calcifications in the lower anterior pelvic wall. IMPRESSION: No fracture or dislocation. Dictated by: Kar Mckenna M.D. on 05/26/2020 at 20:21 Approved by: Kar Mckenna M.D. on 05/26/2020 at 20:28 [facility] Narrative Medical decision making narrative: Initial x-ray shows a potential concern for fracture so a CT scan was ordered. This subsequently showed no fracture. Patient has been ambulatory. Discussed all this with her. Feel we can hold on further workup for now. She reports no other injury from the fall. She was given return precautions. She expressed understanding and agreement. Discharge Plan Departure Patient Disposition: Home Clinical Impression: Acute pain of left hip Instructions: DI for Hip Pain Activity Restrictions/Additional Instructions: There were no fractures on the x-rays or CT scans this evening. You have no restrictions on your activities. You can take Tylenol and/or ibuprofen for any discomfort. Return to the emergency department for any new or worsening symptoms. Prescriptions: No Action Valsartan (#DIOVAN) 80 mg PO QDAY Qty: 0 RF: 0 levothyroxine 88 MCG tablet Qty: 0 RF: 0 metoprolol tartrate 25 MG tablet 25 mg PO BID Qty: 0 RF: 0 lansoprazole 30 MG capsule,delayed release(DR/EC) 30 mg PO QDAY Qty: 0 RF: 0 LIDOCAINE (LIDODERM) 5 % Topical PRN PRNQty: 0 RF: 0 flecainide 150 MG tablet 150 mg PO BID Qty: 0 RF: 0 flecainide 50 MG tablet 50 mg PO BID Qty: 0 RF: 0 aspirin 81 MG tablet,delayed release (DR/EC) 81 mg PO QDAY Qty: 0 RF: 0 hydrocodone-acetaminophen [[place]] 5 MG/325 MG tablet 1 tab PO Q4HP PRNQty: 7 RF: 0 cyclobenzaprine 10 MG tablet 10 mg PO Q8HP PRNQty: 20 RF: 0 amitriptyline 25 MG tablet 25 mg PO HS Qty: 90 RF: 3 topiramate [Topamax] 25 MG tablet 0 PO SEE INSTRUCTIONS Qty: 60 RF: 3 lidocaine 5 % adhesive patch,medicated 1 patch TOP DAILY PRN (Reason: pain) Qty: 15 RF: 0 prednisone 20 mg tablet 40 mg PO DAILY Qty: 10 RF: 0 cyclobenzaprine 10 mg tablet 10 mg PO TID PRN (Reason: muscle spasm) Qty: 20 RF: 0 hydrocodone-acetaminophen [[place]] 5-325 mg tablet 1 tab PO Q4-6H PRN (Reason: pain) Qty: 10 RF: 0 Referrals: Clerc,Shea, MD [Primary Care Provider] - Stand Alone Forms: Work Release Note
[2020-05-26] MEDS: TRAMADOL 50 MG TABLET PO (19:58)
== END 2020-05-26 21:04 | disposition home or self-care (01) ==
PROVIDERS: Emergency Provider Emergency Medicine; Family Provider Internal Medicine; PCP Internal Medicine
DX: M25.552 Pain in left hip (principal); W19.XXXA Unspecified fall, initial encounter; N84.0 Polyp of corpus uteri
CPT/HCPCS: 72192; 73502; 99283; 99284

== ENCOUNTER 2020-11-15 13:34 | Emergency (ER) | payer MEDICARE, OTHER, SELFPAY ==
[2020-11-15] VITALS (8 sets, daily range): BP systolic 155–192; BP diastolic 74–82; PULSE 59–75; RESP 16–22; TEMP 36.2; O2SAT 96–100
--- NOTE | 2020-11-15 13:41 | DI.RAD.S_ITS ---
PROCEDURE: XR CHEST 1V INDICATIONS: chest pain TECHNIQUE: One view of the chest was acquired. COMPARISON: [facility], , CHEST 1 VIEW, 09/18/2017, 21:51. FINDINGS: Surgical changes and devices: Left chest wall pacer is seen. Lungs and pleura: Lungs are clear. No pleural effusions or pneumothorax. Mediastinum: Mediastinal contours appear normal. Heart size is normal. Bones and chest wall: No suspicious bony lesions. Overlying soft tissues appear unremarkable. IMPRESSION: No acute cardiopulmonary abnormality. Dictated by: Gelacio Mendoza M.D. on 11/15/2020 at 15:07 Approved by: Gelacio Mendoza M.D. on 11/15/2020 at 15:07
[2020-11-15 14:08] LABS: Add Manual Diff / Slide Review NO; Basophils Absolute Auto 100 /uL (0-100); Basophils Percent Auto 1.2 % (0-2); Eosinophils Absolute Auto 200 /uL (0-450); Eosinophils Percent Auto 3.5 % (2-4); Hemoglobin 12.4 g/dL (12.0-16.0); Lymphocytes Absolute Auto 1600 /uL (1100-4500); Lymphocytes Percent Auto 28.7 % (25-40); Mean Corpuscular HGB Conc 31.7 % (30-36); Mean Corpuscular Hemoglobin 25.4 PG (26-34); Mean Corpuscular Volume 80.2 fL (80-100); Monocytes Absolute Auto 500 /uL (0-900); Monocytes Percent Auto 8.6 % (3-14); Neutrophils Absolute Auto 3100 /uL (1500-7000); Platelet Count 237 X10^3/uL (150-400); Red Blood Cell Count 4.86 X10^6/uL (4.0-5.2); White Blood Cell Count 5.4 X10^3/uL (4.5-11.0)
[2020-11-15 14:15] LABS: INR 1.1 (0.9-1.3); Prothrombin Time 12.3 SECONDS (10.1-12.7)
[2020-11-15 14:17] LABS: PTT Partial Thromboplastin Tim 34 SECONDS (26.4-36.2)
[2020-11-15 14:22] LABS: Alanine Aminotransferase 11 IU/L (<35); Albumin 3.8 g/dL (3.5-5.0); Albumin Globulin Ratio 1.2 (1.0-2.8); Alkaline Phosphatase 131 U/L (38-126); Aspartate Aminotransferase 24 IU/L (14-36); BUN Creatinine Ratio 17.8 (6-22); Blood Urea Nitrogen 13 mg/dL (7-17); Carbon Dioxide 25 mmol/L (22-32); Chloride 107 mmol/L (98-107); Creatine Kinase 61 U/L (30-135); Estimated Glomerular Filt Rate > 60.0 mL/min (>60); Globulin 3.1 g/dL (1.7-4.1); Glucose 92 mg/dL (80-110); HEMOLYSIS 21 (0-50); Lipase 110 U/L (23-300); Potassium 4.2 mmol/L (3.4-5.1); Sodium 137 mmol/L (137-145); Total Protein 6.9 g/dL (6.3-8.2)
[2020-11-15 14:29] LABS: NT-proBNP (BNP-Adult 18+) 506 pg/mL (<125)
[2020-11-15 14:32] LABS: Troponin I < 0.012 ng/mL (0.01-0.034)
[2020-11-15 15:14] LABS: COVID19 - ADMIT (NP swab/PCR) Negative (Negative)
--- NOTE | 2020-11-15 15:46 | ED.CHESTPAIN ---
HPI - Chest Pain General Chief Complaint: Chest Pain Stated Complaint: chest pain, has pacemaker, bad head pain 11/11 on Time Seen by Provider: 11/15/20 15:15 Source: patient Mode of arrival: Ambulatory Limitations: no limitations History of Present Illness HPI narrative: 70-year-old female nonsmoker with history of COPD former bradycardia with a pacemaker on [employer] presents with a chief complaint of sharp and stabbing anterior chest pain over the past 5 days. She says all of her symptoms started when she developed 1 of her classic headaches last and caused her to fall down and strike her head. She states that she woke up in a pool of blood which was coming from her nose and has been having chest pain off and on ever since. She states it is much worse if you press or take a deep breath. She is not dizzy nor weak or lightheaded. She has had some episodes of nausea and vomiting. She is activated as a modified trauma given fall with head injury on [facility] complaint: other Duration: intermittent Pain location: substernal Severity: moderate Quality: sharp Pain radiation: none Relieving factors: remaining still Exacerbating factors: inspiration Related Data On Oral Contraceptives: No Home Medications Medication Instructions Recorded Confirmed Valsartan (#DIOVAN) 80 mg PO QDAY #0 02/06/12 levothyroxine #0 02/06/12 metoprolol tartrate 25 mg PO BID #0 02/06/12 lansoprazole 30 mg PO QDAY #0 06/24/12 LIDOCAINE (LIDODERM) 5 % TOPICAL PRN PRN #0 01/13/16 flecainide 150 mg PO BID #0 tab 03/12/16 aspirin 81 mg PO QDAY #0 03/14/16 flecainide 50 mg PO BID #0 03/14/16 Previous Rx's Medication Instructions Recorded hydrocodone-acetaminophen [[place]] 1 tab PO Q4HP PRN #7 tab 09/17/16 cyclobenzaprine 10 mg PO Q8HP PRN #20 tab 11/19/16 amitriptyline 25 mg PO HS #90 tab 04/24/17 topiramate [Topamax] 0 PO SEE INSTRUCTIONS #60 tab 04/24/17 cyclobenzaprine 10 mg PO TID PRN #20 tab 11/02/19 hydrocodone-acetaminophen [[place]] 1 tab PO Q4-6H PRN #10 tab 11/02/19 lidocaine 1 patch TOP DAILY PRN #15 each 11/02/19 prednisone 40 mg PO DAILY #10 tab 11/02/19 Allergies Allergy/AdvReac Type Severity Reaction Status Date / Time celecoxib [CELECOXIB] Allergy Unknown Verified 11/02/19 13:35 lactobacillus [LACTOBACILLUS] Allergy Unknown Verified 11/02/19 13:35 morphine [MORPHINE] Allergy Unknown Verified 11/02/19 13:35 oxycodone [OXYCODONE] Allergy Unknown Verified 11/02/19 13:35 Iodine and Iodide Containing Allergy Verified 05/26/20 17:24 Produc IP DYE Allergy Mild Uncoded 11/02/19 13:35 Review of Systems Constitutional Constitutional: Denies chills, Denies fatigue, Denies fever(s), Denies frequent falls, Reports headache(s), Denies lethargy and Denies weakness Eyes Eyes: Denies change in vision, Denies eye discharge, Denies irritation and Denies loss of vision ENT Ears, Nose, Mouth, and Throat: Denies change in voice, Denies dizziness, Reports headache(s), Denies neck pain, Denies sore throat and Denies throat swelling Cardiovascular Cardiovascular: Reports chest pain, Denies irregular heart rhythm, Denies lightheadedness, Denies palpitations, Denies dyspnea, Denies dyspnea on exertion and Denies orthopnea Respiratory Respiratory: Denies cough, Denies dyspnea, Denies dyspnea on exertion and Denies wheezing Gastrointestinal Gastrointestinal: Denies abdominal pain, Denies change in bowel habits, Denies diarrhea, Denies nausea and Denies vomiting Musculoskeletal Musculoskeletal: Denies neck pain and Denies numbness Integumentary/Breasts Skin/Breast: Denies pruritus, Denies erythema, Denies rash and Denies wounds Neurologic Neurologic: Denies behavioral changes, Denies confusion, Denies dizziness, Denies frequent falls, Reports headache(s), Denies loss of vision, Denies numbness and Denies weakness Psychiatric Psychiatric: Denies anxiety, Denies behavioral changes, Denies confusion, Denies depression, Denies homicidal ideation and Denies suicidal ideation Endocrine Endocrine: Denies fatigue, Denies flushing and Denies palpitations Hematologic/Lymphatic Hematologic/Lymphatic: Denies easy bruising Allergic/Immunologic Allergic/Immunologic: Denies urticaria, Denies throat swelling and Denies wheezing Patient History Medical History Endometrial hyperplasia Postmenopausal bleeding Uterine mass Surgical History History of carpal tunnel repair History of gastric bypass History of knee replacement History of knee replacement Presence of cardiac pacemaker Status post breast lumpectomy Status post cholecystectomy Status post dilation and curettage Status post surgery (04/09/15) Family History Father Cancer Social History Smoking Status: Never smoker Smoking Status: Never smoker Substance Use Type: does not use Exam Narrative Exam Narrative: GENERAL: [70] year old patient appears stated age. Well-developed patient, in mild distress. GCS 15 HEAD: Atraumatic. Normocephalic. EYES: Pupils equal round and reactive. No hyphema Extraocular motions intact. No scleral icterus. No injection or drainage. ENT: Nose without bleeding, purulent drainage. T no nasal septal hematoma or hemotympanum hroat without erythema, tonsillar hypertrophy or exudate. Airway patent. NECK: Trachea midline. Non tender CARDIOVASCULAR: Regular rate and rhythm without murmurs, gallops, or rubs. Sharp and stabbing reproducible anterior chest pain RESPIRATORY: Clear to auscultation. Breath sounds equal bilaterally. No wheezes, rales, or rhonchi. GASTROINTESTINAL: Abdomen soft, non-tender, nondistended. EXTREMITIES: No edema or joint tenderness. BACK: Nontender without deformity or crepitance. No flank tenderness. NEURO: AOx3. SKIN: No rash or erythema of visible areas Initial Vital Signs Initial Vital Signs: Vital Signs Temperature 97.2 F L 11/15/20 13:38 Pulse Rate 75 11/15/20 13:38 Respiratory Rate 22 11/15/20 13:38 Blood Pressure 192/82 H 11/15/20 13:38 Pulse Oximetry 96 11/15/20 13:38 Course Orders Ordered: ED Orders 11/15/20 13:41 XR chest 1V Stat EKG-12 Lead Stat 11/15/20 13:58 BNP [NT-proBNP (BNP-Adult 18+)] Stat COVID19 - ADMIT (EYE SPECIALIST swab/PCR) Stat Complete Blood Count AUTO DIFF Stat Comprehensive Metabolic Panel Stat D Dimer Stat Lipase Stat Partial Thromboplastin Time Stat Prothrombin Time INR Stat Troponin & CK Cardiac Panel Stat 11/15/20 15:54 CT head/brain wo con Stat Vital Signs Vital signs: Vital Signs - 8 hr 11/15/20 13:38 11/15/20 14:35 11/15/20 15:00 Temperature 97.2 F L Pulse Rate 75 60 60 Respiratory Rate 22 18 16 Blood Pressure 192/82 H Pulse Oximetry 96 99 100 MDM - Chest Pain Lab Data Result diagrams: 11/15/20 13:58 11/15/20 13:58 Labs: Lab Results 11/15/20 11/15/20 11/15/20 Range/Units 13:58 13:58 13:58 WBC 5.4 (4.5-11.0) X10^3/uL RBC 4.86 (4.0-5.2) X10^6/uL Hgb 12.4 (12.0-16.0) g/dL Hct 39.0 (36-46) % MCV 80.2 (80-100) fL MCH 25.4 L (26-34) PG MCHC 31.7 (30-36) % RDW 16.0 H (11.6-14.8) % Plt Count 237 (150-400) X10^3/uL Neut % (Auto) 58.0 (50-75) % Lymph % (Auto) 28.7 (25-40) % [place] % (Auto) 8.6 (3-14) % Eos % (Auto) 3.5 (2-4) % Baso % (Auto) 1.2 (0-2) % Neut # (Auto) 3100 (9387-1713) /uL Lymph # (Auto) 1600 (7365-6963) /uL [place] # (Auto) 500 (0-900) /uL Eos # (Auto) 200 (0-450) /uL Baso # (Auto) 100 (0-100) /uL PT 12.3 (10.1-12.7) SECONDS INR 1.1 (0.9-1.3) APTT 34 (26.4-36.2) SECONDS D-Dimer (<230) ng/mL Sodium 137 (137-145) mmol/L Potassium 4.2 (3.4-5.1) mmol/L Chloride 107 (98-107) mmol/L Carbon Dioxide 25 (22-32) mmol/L BUN 13 (7-17) mg/dL Creatinine 0.73 (0.52-1.04) mg/dL Estimated GFR > 60.0 (>60) mL/min BUN/Creatinine Ratio 17.8 (6-22) Glucose 92 (80-110) mg/dL Calcium 9.0 (8.4-10.2) mg/dL Total Bilirubin 1.0 (0.2-1.3) mg/dL AST 24 (14-36) IU/L ALT 11 (<35) IU/L Alkaline Phosphatase 131 H (38-126) U/L Total Creatine Kinase 61 (30-135) U/L CK-MB (CK-2) TNP CK-MB (CK-2) Rel Index TNP Troponin I < 0.012 (0.01-0.034) ng/mL NT-Pro-B Natriuret Pep (<125) pg/mL Total Protein 6.9 (6.3-8.2) g/dL Albumin 3.8 (3.5-5.0) g/dL Globulin 3.1 (1.7-4.1) g/dL Albumin/Globulin Ratio 1.2 (1.0-2.8) Lipase 110 (23-300) U/L SARS-CoV-2 (PCR) (Negative) 11/15/20 11/15/20 11/15/20 Range/Units 13:58 13:58 13:58 WBC (4.5-11.0) X10^3/uL RBC (4.0-5.2) X10^6/uL Hgb (12.0-16.0) g/dL Hct (36-46) % MCV (80-100) fL MCH (26-34) PG MCHC (30-36) % RDW (11.6-14.8) % Plt Count (150-400) X10^3/uL Neut % (Auto) (50-75) % Lymph % (Auto) (25-40) % [place] % (Auto) (3-14) % Eos % (Auto) (2-4) % Baso % (Auto) (0-2) % Neut # (Auto) (1657-2807) /uL Lymph # (Auto) (6193-0756) /uL [place] # (Auto) (0-900) /uL Eos # (Auto) (0-450) /uL Baso # (Auto) (0-100) /uL PT (10.1-12.7) SECONDS INR (0.9-1.3) APTT (26.4-36.2) SECONDS D-Dimer 264 H (<230) ng/mL Sodium (137-145) mmol/L Potassium (3.4-5.1) mmol/L Chloride (98-107) mmol/L Carbon Dioxide (22-32) mmol/L BUN (7-17) mg/dL Creatinine (0.52-1.04) mg/dL Estimated GFR (>60) mL/min BUN/Creatinine Ratio (6-22) Glucose (80-110) mg/dL Calcium (8.4-10.2) mg/dL Total Bilirubin (0.2-1.3) mg/dL AST (14-36) IU/L ALT (<35) IU/L Alkaline Phosphatase (38-126) U/L Total Creatine Kinase (30-135) U/L CK-MB (CK-2) CK-MB (CK-2) Rel Index Troponin I (0.01-0.034) ng/mL NT-Pro-B Natriuret Pep 506 H (<125) pg/mL Total Protein (6.3-8.2) g/dL Albumin (3.5-5.0) g/dL Globulin (1.7-4.1) g/dL Albumin/Globulin Ratio (1.0-2.8) Lipase (23-300) U/L SARS-CoV-2 (PCR) Negative (Negative) Imaging Data CT scan - head: Radiologist's Impression: [address] [id number] Scan ReportSigned Patient: [facility]#: [id number]: 9Acct:[id number]/Sex: 70 / FDate of Service: 11/15/20Loc: EDAccession Number: [id number] Procedure: CT head/brain wo con Ordering Provider: Leslie,Baldo D.O. PROCEDURE: CT HEAD/BRAIN WO CON INDICATIONS: fall, head injury on eliquis TECHNIQUE: Noncontrast 4.5 mm thick angled axial sections acquired from the foramen magnum to the vertex, with coronal and sagittal reformats. For radiation dose reduction, the following was used: automated exposure control, adjustment of mA and/or kV according to patient size. COMPARISON: [facility], CR, XR CHEST 1V, 11/15/2020, 14:42. [facility], CT, HEAD WITHOUT CONTRAST, 11/19/2016, 15:48. FINDINGS: Image quality: Excellent. CSF spaces: Basal cisterns are patent. No extra-axial fluid collections. The ventricles are symmetric in size and shape. Brain: No intracranial bleeds or masses. There is cerebral volume loss for age, with resultant ventricular and sulcal prominence. There are periventricular and deep white matter chronic small vessel ischemic changes. There is intracranial internal carotid artery atherosclerosis. Skull and face: Calvarium and visualized facial bones appear intact, without suspicious lesions. Sinuses: Visualized sinuses and mastoids are clear. IMPRESSION: No acute intracranial hemorrhage is seen. No acute intracranial process is seen. Dictated by: Beto Kasper M.D. on 11/15/2020 at 15:27 Approved by: Beto Kasper M.D. on 11/15/2020 at 15:27 Chest x-ray: Radiologist's Impression: Chart Viewer Diagnostics DATE TYPE STATUS REF RANGE/AUTHOR Hx Today 15:54 Beto Kasper Today 13:41 Gelacio Mendoza 05/26/20 18:53 CallKar 05/26/20 17:20 Call,Kar 11/02/19 15:57 Beto Kasper 09/18/17 23:02 09/18/17 21:45 Deneen Gong, F0 1950 [facility], [facility] ED R05 77.111kg Chest Pain Search Chart No Data to Display NonFormulary Not Included in Conflicts ONSET Today 15:00 Deneen Gong F [address] [address]LXln ReportSigned Patient: Deneen Gong SMR#: [id number]: 1950cct:[id number]/Sex: 70 / FDate of Service: 11/15/20Loc: EDAccession Number: [id number] Procedure: XR chest 1V Ordering Provider: Shira Santoro D.O. PROCEDURE: XR CHEST 1V INDICATIONS: chest pain TECHNIQUE: One view of the chest was acquired. COMPARISON: [facility], CHEST 1 VIEW, 09/18/2017, 21:51. FINDINGS: Surgical changes and devices: Left chest wall pacer is seen. Lungs and pleura: Lungs are clear. No pleural effusions or pneumothorax. Mediastinum: Mediastinal contours appear normal. Heart size is normal. Bones and chest wall: No suspicious bony lesions. Overlying soft tissues appear unremarkable. IMPRESSION: No acute cardiopulmonary abnormality. Dictated by: Gelacio Mendoza M.D. on 11/15/2020 at 15:07 Approved by: Gelacio Mendoza M.D. on 11/15/2020 at 15:07 ECG Data Interpretation: Atrial paced rhythm, no ST segmental elevations or depressions, no T-wave abnormalities, no ectopy. MDM Narrative Medical decision making narrative: Patient has had sharp and stabbing anterior chest pain which is reproducible with deep breath and palpation for the past week. She has no pressure, squeezing or radiation of her discomfort, she denies any shortness of breath, nausea, vomiting or unexplained diaphoresis. Troponin is unremarkable and EKG is nonischemic. The description of her discomfort is much more consistent with chest wall pain. Pulmonary embolism considered but thought exceedingly unlikely given her use of anticoagulation an age corrected D-dimer below the cutoff. Head CT performed given her fall with possible head injury while on Eliquis, no findings here. Return precautions given and questions answered to her apparent satisfaction Discharge Plan Departure Patient Disposition: Home Clinical Impression: Acute chest wall pain Activity Restrictions/Additional Instructions: *You have been diagnosed with [anterior chest wall pain, labs, imaging and EKG are very reassuring] *What to do: *Please continue to take your regular medications as directed. [ ] New medication prescriptions sent to your pharmacy: [ ] [ ] New medication written as a paper prescription [ x] No new medications given *Please follow up with your primary care provider in 2-3 days, call for an appointment. Let them know you were seen in the Emergency Department and that we ask that you be seen in follow up. We will electronically transmit a record of today's note if your PCP is in our system *If you do not have a primary care provider please contact the [facility] Resource line at [phone]. They will ask some questions about your medical history and help get you set up with a doctor in the community. *Return to Emergency Department if you should have any new, worsening or concerning symptoms, such as [fever greater than 101 F, shaking chills, worsening pain, persistent vomiting or other bothersome symptoms] Prescriptions: No Action Valsartan (#DIOVAN) 80 mg PO QDAY Qty: 0 RF: 0 levothyroxine 88 MCG tablet Qty: 0 RF: 0 metoprolol tartrate 25 MG tablet 25 mg PO BID Qty: 0 RF: 0 lansoprazole 30 MG capsule,delayed release(DR/EC) 30 mg PO QDAY Qty: 0 RF: 0 LIDOCAINE (LIDODERM) 5 % Topical PRN PRNQty: 0 RF: 0 flecainide 150 MG tablet 150 mg PO BID Qty: 0 RF: 0 flecainide 50 MG tablet 50 mg PO BID Qty: 0 RF: 0 aspirin 81 MG tablet,delayed release (DR/EC) 81 mg PO QDAY Qty: 0 RF: 0 hydrocodone-acetaminophen [[place]] 5 MG/325 MG tablet 1 tab PO Q4HP PRNQty: 7 RF: 0 cyclobenzaprine 10 MG tablet 10 mg PO Q8HP PRNQty: 20 RF: 0 amitriptyline 25 MG tablet 25 mg PO HS Qty: 90 RF: 3 topiramate [Topamax] 25 MG tablet 0 PO SEE INSTRUCTIONS Qty: 60 RF: 3 lidocaine 5 % adhesive patch,medicated 1 patch TOP DAILY PRN (Reason: pain) Qty: 15 RF: 0 prednisone 20 mg tablet 40 mg PO DAILY Qty: 10 RF: 0 cyclobenzaprine 10 mg tablet 10 mg PO TID PRN (Reason: muscle spasm) Qty: 20 RF: 0 hydrocodone-acetaminophen [[place]] 5-325 mg tablet 1 tab PO Q4-6H PRN (Reason: pain) Qty: 10 RF: 0 Referrals: Shea Rosas MD [Primary Care Provider] -
--- NOTE | 2020-11-15 15:54 | DI.CT.S_ITS ---
PROCEDURE: CT HEAD/BRAIN WO CON INDICATIONS: fall, head injury on eliquis TECHNIQUE: Noncontrast 4.5 mm thick angled axial sections acquired from the foramen magnum to the vertex, with coronal and sagittal reformats. For radiation dose reduction, the following was used: automated exposure control, adjustment of mA and/or kV according to patient size. COMPARISON: [facility], CR, XR CHEST 1V, 11/15/2020, 14:42. [facility], CT, HEAD WITHOUT CONTRAST, 11/19/2016, 15:48. FINDINGS: Image quality: Excellent. CSF spaces: Basal cisterns are patent. No extra-axial fluid collections. The ventricles are symmetric in size and shape. Brain: No intracranial bleeds or masses. There is cerebral volume loss for age, with resultant ventricular and sulcal prominence. There are periventricular and deep white matter chronic small vessel ischemic changes. There is intracranial internal carotid artery atherosclerosis. Skull and face: Calvarium and visualized facial bones appear intact, without suspicious lesions. Sinuses: Visualized sinuses and mastoids are clear. IMPRESSION: No acute intracranial hemorrhage is seen. No acute intracranial process is seen. Dictated by: Beto Kasper M.D. on 11/15/2020 at 15:27 Approved by: Beto Kasper M.D. on 11/15/2020 at 15:27
[2020-11-15 16:06] LABS: D Dimer 264 ng/mL (<230)
--- NOTE | 2020-11-15 16:39 | PC.NURSE ---
patient states headache and not feeling well on , pt told the dr that she had fallen morning and woke up on the floor vomiting. pt states she has continued with nausea since. pt does take eliquis.
== END 2020-11-15 17:25 | disposition home or self-care (01) ==
PROVIDERS: Emergency Medicine; Emergency Provider Emergency Medicine; Family Provider Internal Medicine; PCP Internal Medicine
DX: R07.89 Other chest pain (principal); S09.90XA Unspecified injury of head, initial encounter; W19.XXXA Unspecified fall, initial encounter; Z95.0 Presence of cardiac pacemaker; Z20.822 Contact with and (suspected) exposure to COVID-19; Z79.01 Long term (current) use of anticoagulants
CPT/HCPCS: 36415; 70450; 71045; 80053; 82550; 83690; 83880; 84484; 85025; 85379; 85610; 85730; 87635; 93005; 93010; 99284; C9803

== ENCOUNTER → 2021-03-16 07:26 | Outpatient (CLI) | payer MEDICARE, OTHER, SELFPAY ==
--- NOTE | 2021-03-16 07:29 | DI.US.S_ITS ---
PROCEDURE: US ABDOMEN LIMITED INDICATIONS: BLEEDING AND FLUID LEAKING FROM UMBILICUS TECHNIQUE: Real-time scanning was performed of the periumbilical soft tissue COMPARISON: None. FINDINGS: Directed periumbilical soft tissue ultrasound shows appropriate subcutaneous and fascial planes. No evidence of loculated fluid collection umbilical hernia. IMPRESSION: 1. Unremarkable periumbilical soft tissues. Approved by: Edy Van M.D. on 03/16/2021 at 9:45
== END ==
PROVIDERS: Family Provider Internal Medicine; PCP Internal Medicine; Referring Provider Obstetrics & Gynecology; Visit Provider Obstetrics & Gynecology
DX: N95.0 Postmenopausal bleeding (principal); R10.33 Periumbilical pain; R19.8 Other specified symptoms and signs involving the digestive system and abdomen
CPT/HCPCS: 76705

== ENCOUNTER → 2021-04-11 13:08 | Outpatient (CLI) | payer MEDICARE, OTHER, SELFPAY ==
[2021-04-11 15:22] LABS: Cancer Antigen 125 5.9 U/mL (0-35)
== END ==
PROVIDERS: Family Provider Internal Medicine; PCP Internal Medicine; Referring Provider Obstetrics & Gynecology; Visit Provider Obstetrics & Gynecology
DX: R19.00 Intra-abdominal and pelvic swelling, mass and lump, unspecified site (principal); R19.09 Other intra-abdominal and pelvic swelling, mass and lump; N95.0 Postmenopausal bleeding
CPT/HCPCS: 36415; 86304

== ENCOUNTER → 2021-04-18 13:37 | Outpatient (CLI) | payer MEDICARE, OTHER, SELFPAY ==
[2021-04-18 16:59] LABS: COVID19 -Nasal RAPID Negative (Negative)
== END ==
PROVIDERS: Family Provider Internal Medicine; PCP Internal Medicine; Referring Provider Obstetrics & Gynecology; Visit Provider Obstetrics & Gynecology
DX: Z01.812 Encounter for preprocedural laboratory examination (principal); Z20.822 Contact with and (suspected) exposure to COVID-19
CPT/HCPCS: 87635; C9803

== ENCOUNTER 2021-04-19 07:33 | Day surgery (SDC) | payer MEDICARE, OTHER, SELFPAY ==
[2021-04-14 15:06] VITALS: BMI 33.7
[2021-04-19] VITALS (10 sets, daily range): BP systolic 108–144; BP diastolic 36–85; PULSE 59–68; RESP 13–18; TEMP 36.3–36.9; O2SAT 93–99; BMI 33.7
--- NOTE | 2021-04-19 | PATH_ITS ---
[facility] Accession Number: [id number] . 01 Material submitted: . uterus - UTERUS, BILATERAL FALLOPIAN TUBES AND BILATERAL OVARIES, AND CYSTIC MASS . 02 Diagnosis: Uterus, Bilateral Fallopian Tubes and Bilateral Ovaries and Cystic Mass, Supracervical Hysterectomy and Bilateral Salpingo-oophorectomy (Weight 33 grams): Endometrium with features of cystic atrophy; negative for glandular hyperplasia, cytologic atypia or malignancy. Myometrium with involvement by a leiomyoma (5 mm) and adenomyoma (region of involvement is vague, but appears to measure up to 2.2 cm). Uterine serosa with no significant histomorphologic abnormality. Ovaries x2 with patchy stromal thecosis and no significant histomorphologic abnormality. Fallopian tubes x2 with scattered benign paratubal cysts (1-22 mm); negative for atypia or malignancy. MRV 04/22/2021 1342 Local . 02 Comment: As part of routine software quality manager, parts of this case was also reviewed by Dr. Story, who agrees with the interpretation. . 02 Electronically signed: . Sameera Rene MD, Pathologist NPI- [id number] . 01 Gross description: . The specimen is received in formalin, labeled uterus, bilateral fallopian tubes, bilateral ovaries and cystic mass and consists of a 33-gram supracervically resected uterus with partially attached bilateral fallopian tubes and ovaries. The uterus measures 3.5 cm from superior to fundus to lower uterine segment by 3.2 cm from cornu to cornu by 2.0 cm from anterior to posterior. The specimen is bivalved to reveal a 2.2 x 1.0 cm endometrial cavity with a robison-pink ragged endometrium measuring 0.1 cm in thickness. The myometrium is robison-pink and trabeculated, measuring 0.9 cm in thickness, with a 0.3 x 0.3 x 0.3 cm robison-white whorled leiomyoma with no areas of hemorrhage, necrosis or cystic degeneration. Additionally, there are two robison cysts measuring 0.3 x 0.3 x 0.2 cm each which contain a brown friable material. The ovaries measure 3.0 x 2.5 x 1.5 cm and 3.2 x 2.5 x 1.5 cm. The external surfaces are robison and smooth. Sectioning reveals a robison to robison-white ovarian stroma. The larger ovary has a partially detached fallopian tube measuring 4.5 cm in length by 1.0 cm in diameter, and the larger ovary has a fallopian tube measuring 5.5 cm in length by 0.6 cm in diameter. The serosa is robison-pink with fibrinous adhesions and multiple paratubal cysts ranging from 0.1-2.2 cm. Sectioning reveals a robison mucosa and a stellate lumen measuring 0.2 cm in diameter. Firefighter Type One sections are submitted. . A1: Lower uterine segment. A2-A4: Firefighter Type One uterus, to include cyst and leiomyoma. A5-A6: Firefighter Type One ovaries. A7-A8: Firefighter Type One fallopian tubes, central cross sections and bisected fimbria. (EA:[id number]) /MRV 04/20/2021 [facility]8 Local . 02 Pathologist provided ICD-10: N95.0, N85.8 . 02 CPT . 291774 Performed at: 01 [facility] Cytology [address] [address], [place], [place] [id number] MD Gustavo Conklin MD Phone: [phone] Performed at: 02 [facility] [address] [place] [id number] MD Sindhu Story MD Phone: [phone]
[2021-04-19] MEDS: ACETAMINOPHEN 325 MG TABLET 975 MG PO (07:43)
--- NOTE | 2021-04-19 07:44 | PM.PREOP ---
Pre-operative Note COVID-19 COVID-19 status: Negative Result date/Date tested (Pos, Neg/Pending): 04/18/21 Interval Note History & Physical reviewed/Exam performed by Physician: Yes Changes to H&P: No H&P completed within 30 days and has changed as indicated here:: 04/14/21
[2021-04-19] MEDS: LACTATED RINGERS 1,000 ML 42 ML IV (07:45)
[2021-04-19] MEDS: CEFAZOLIN 1 GM VIAL 2 GM IV (08:14)
--- NOTE | 2021-04-19 08:35 | PATH_ITS ---
Note [facility] Accession Number: [id number] TESTS RESULT FLAG UNITS REF RANGE LAB Clinician Provided Cytology Information No. of containers..01 Other (Miscellaneous) Source: PELVIC WASHINGS DIAGNOSIS: PELVIC WASHINGS NEGATIVE FOR MALIGNANT CELLS. THIS INTERPRETATION INCLUDES EVALUATION OF A CELL BLOCK. Pathologist ICD10: 01 N95.0 Signed out by: Deneen Rucker MD, Pathologist NPI- [id number] Performed by: Aditya Perez, [employer] ([facility]) Gross description: 10 CC, YELLOW, CLEAR RECEIVED: FRESH IN ORANGE CAP CONTAINER. /VDU 04/20/2021 0748 Local FLAG LEGEND: L-Low Normal,H-High Normal,LL-Alert Low,HH-Alert High <-Panic Low,>-Panic High,A-Abnormal,AA-Critical Abnormal Performed at: 01 =Z [facility] [address], [place] [address] Gustavo Conklin MD, Performed at: 01 [facility] [address], [place], [place] [id number] MD Gustavo Conklin MD Phone: [phone]
--- NOTE | 2021-04-19 08:38 | SUR.OPER ---
Addendum entered by Debby Shi R.N. 04/19/21 08:56: Patients upper dentures removed in the OR and placed into patient labeled green denture container. Taken to PACU with patient. Original Note: Lithotomy on padded OR bed. [place] Pad Positioner under torso. Head on pillow, arms padded and tucked at sides. Legs secured in padded yellow fins stirrups.
[2021-04-19] MEDS: BUPIVACAINE 0.5% (PF) 30 ML, EPINEPHrine 0.15 MG INJ (08:50)
[2021-04-19] MEDS: ROPIVACAINE 0.2% PF 2 MG/ML 10ML AMP 20 ML INJ (08:51)
--- NOTE | 2021-04-19 09:24 | P.OP_ITS ---
Operative Date/Time/Diagnoses Date of procedure: 04/19/21 Time of procedure: 09:24 Pre-op diagnosis: Post menopausal bleeding Cystic pelvic mass Post-op diagnosis: same Procedure & Clinicians Procedure: Procedures Operation Date: 04/19/21 07:45 Actual Procedure Side Surgeon p Laparoscopic Supracervical Hysterectomy w. bilateral salpingo-oophorectomy and cystic mass removal Imelda Castellanos MD Indications: Postmenopausal bleeding Uterine mass Cystic pelvic mass Surgeon: Imelda Castellanos Nursing Services Manager: Tsering Schwartz Anesthesia Type: General and Local Operative Notes Findings: 5 wk size anteverted uterus Normal tubes and ovaries 3 cm multi-cystic mass along the left pelvic sidewall Closure Type: primary Specimen(s): left tube & ovary, right tube & ovary, uterus and washings Applied: catheter (Removed in PACU) Estimated blood loss (mL): 50 Blood products transfused: none Procedure in detail: The patient was taken to the operating room where she was placed in the dorsal supine position. After adequate general endotracheal anesthesia was achieved, she was placed in the dorsal lithotomy position, and prepped and draped in the usual sterile fashion. A timeout was performed. A bivalve speculum was placed into the vagina and the anterior lip of the cervix grasped with a single-tooth tenaculum. The cervical os was sequentially dilated until the ZUMI uterine manipulator could pass easily into the endometrial cavity. The single-tooth tenaculum was removed from the anterior lip of the cervix, and the bivalve speculum was removed from the vagina. Attention was then turned to the abdomen where 6 mL of half percent Marcaine with epinephrine were injected in the umbilical fold. A 5 mm incision was made. The Veress needle was placed into the peritoneal cavity, and its placement confirmed by aspiration and drop test. The Veress needle was removed. A 5 mm trocar was placed without difficulty. 2 other incisions were made 4 cm lateral to the midline at the level of the umbilicus after 6 cc of 0.5% Marcaine with epinephrine were injected. These were 5 mm incisions. Two, 5 mm trochars were placed under direct visualization. The right tube and ovary were grasped with an atraumatic grasper. Using the plasma kinetic with settings of 40 W the infundibulopelvic ligament on the right side was cauterized and cut all the way down to the cornua of the uterus. The cornua of the uterus was then grasped with an atraumatic grasper. The utero- ovarian ligaments were cauterized and cut. The round ligament and broad ligament were cauterized and cut with plasma kinetic. Hemostasis was achieved. The bladder flap was created using the plasma kinetic with cautery and cut retirement across. The uterine arteries on the right side were extensively cauterized with plasma kinetic. All of this was repeated on the left side with care to include the cystic mass that was near the left ovary. The remainder of the bladder flap was created using the plasma kinetic, and the bladder taken down off the lower uterine segment and cervix. Using the [place], the cervix was amputated from the uterus 2 cm above the uterosacral ligaments, after the ZUMI uterine manipulator was removed from the uterus and a moistened sponge stick was placed in the vagina. There was a small amount of bleeding noted from the posterior edge of the cervix, and this was cauterized for hemostasis. 6 mL of half percent Marcaine with epinephrine were injected above the pubic symphysis. A 12mm incision was made. A 12 mm trocar was placed under direct visualization. An Endobag was placed through the suprapubic trocar and the uterus, tubes, ovaries, and left cystic mass were placed into the Endobag. The uterus was morcellated in approximately 3 pieces. The tubes and ovaries were also removed from the Endobag. The Endobag was removed from the peritoneal cavity. The pelvis was copiously irrigated with warm normal saline. No bleeding was noted. 20 mL of 0.2% ropivacaine were placed over the pelvic pedicles. The instruments were removed from the abdomen. The CO2 was allowed to escape. The suprapubic incision was closed on the fascia with 0 Vicryl. Two simple interrupted sutures were placed in the subcutaneous layer to reapproximate. All of the incisions were closed with 4-0 Biosyn in a subcuticular fashion. Steri strips, 2x2's and Allevyn dressings were placed over the incisions. The moistened sponge stick was removed from the vagina. Sponge, lap, and instrument counts were correct x 2. The patient tolerated the procedure well, was taken to PACU in stable condition. Complications: none Post-operative Condition: stable Disposition: PACU Plan for aftercare: Home after recovery
[2021-04-19] MEDS: HALOPERIDOL 5 MG/ML VIAL 1 MG IV (09:56)
--- NOTE | 2021-04-19 10:16 | SUR.PHASEI ---
pacu Pt awake and alert/oriented-drowsy. meets criteria for transfer. nausea subsided . Report off by phone to floor RN, Joyce, by phone prior to transfer. abdomen soft. 4 lap site dressings cdi. peripad w/out drainage. pain 32/10 -denied need for pain med at present. iv converted to saliene lock rt hand. belonging bag and partials on bed to room on transfer to [facility]. handoff done at bedside with Joyce MORALES.
--- NOTE | 2021-04-19 10:52 | PC.NURSE ---
Patient admitted for PACU s/p Laporscopic supracervical hystrectomy, alert and oriented x3.VSS. wanting up to bathroom,voided at least 25cc yellow urine,ambulated without problems, back to bed,no vaginal bleeding noted on peripad,4x dressing intact,CDI.
[2021-04-19] MEDS: TRAMADOL 50 MG TABLET PO (11:21)
--- NOTE | 2021-04-19 11:24 | PC.NURSE ---
1121 Patient c/o incisional pain,pain scale of 4/10; gave Tamadol
== END 2021-04-19 16:30 | disposition home or self-care (01) ==
LOC: OR 07:35 → LABOR 10:43
PROVIDERS: Family Provider Internal Medicine; PCP Internal Medicine; Referring Provider Obstetrics & Gynecology; Visit Provider Obstetrics & Gynecology
PROC: 0UT94ZL Resection of Uterus, Supracervical, Percutaneous Endoscopic Approach (ICD-10-PCS; CPT 58542; principal; 2021-04-19 07:45)
DX: N95.0 Postmenopausal bleeding (principal); N85.8 Other specified noninflammatory disorders of uterus; E66.9 Obesity, unspecified; Z95.0 Presence of cardiac pacemaker; K21.9 Gastro-esophageal reflux disease without esophagitis
CPT/HCPCS: 58542; J0171; J0330; J0690; J1100; J1630; J1885; J2405; J2704; J2795; J3010

== ENCOUNTER 2021-10-19 11:56 | Observation (INO) | payer MEDICARE, OTHER, SELFPAY ==
[2021-10-19] VITALS (18 sets, daily range): BP systolic 147–183; BP diastolic 70–88; PULSE 59–77; RESP 15–21; TEMP 35.8–37; O2SAT 96–100; BMI 34.3
--- NOTE | 2021-10-19 11:59 | DI.RAD.S_ITS ---
PROCEDURE: XR CHEST 2V INDICATIONS: shortness of breath TECHNIQUE: 2 views of the chest were acquired. COMPARISON: [facility], , XR CHEST 1V, 11/15/2020, 14:42. FINDINGS: Surgical changes and devices: Left chest wall cardiac pacer is stable. Surgical clips in the right breast and axilla are stable. Lungs and pleura: Lungs are clear. No pleural effusions or pneumothorax. Mediastinum: Mediastinal contours are normal. Heart size is normal. Bones and chest wall: No suspicious bony abnormalities. Soft tissues appear unremarkable. IMPRESSION: No acute cardiopulmonary disease process. Dictated by: Nivia Yanez MD, PhD on 10/19/2021 at 13:43 Approved by: Nivia Yanez MD, PhD on 10/19/2021 at 13:44
[2021-10-19 13:03] LABS: Add Manual Diff / Slide Review NO; Basophils Absolute Auto 0 /uL (0-100); Basophils Percent Auto 0.3 % (0-2); Eosinophils Absolute Auto 200 /uL (0-450); Eosinophils Percent Auto 2.5 % (2-4); Hematocrit 37.4 % (36-46); Hemoglobin 12.1 g/dL (12.0-16.0); Lymphocytes Absolute Auto 1600 /uL (1100-4500); Lymphocytes Percent Auto 23.3 % (25-40); Mean Corpuscular HGB Conc 32.4 % (30-36); Mean Corpuscular Hemoglobin 26.3 PG (26-34); Mean Corpuscular Volume 81.1 fL (80-100); Monocytes Absolute Auto 600 /uL (0-900); Monocytes Percent Auto 8.4 % (3-14); Neutrophils Absolute Auto 4400 /uL (1500-7000); Neutrophils Percent Auto 65.5 % (50-75); Platelet Count 231 X10^3/uL (150-400); Red Blood Cell Count 4.62 X10^6/uL (4.0-5.2); Red Cell Distribution Width 16.1 % (11.6-14.8); White Blood Cell Count 6.7 X10^3/uL (4.5-11.0)
[2021-10-19 13:16] LABS: Alanine Aminotransferase 12 IU/L (<35); Albumin 4.2 g/dL (3.5-5.0); Albumin Globulin Ratio 1.3 (1.0-2.8); Alkaline Phosphatase 119 U/L (38-126); Aspartate Aminotransferase 24 IU/L (14-36); BUN Creatinine Ratio 20.8 (6-22); Bilirubin Total 1.1 mg/dL (0.2-1.3); Blood Urea Nitrogen 21 mg/dL (7-17); Calcium 9.1 mg/dL (8.4-10.2); Carbon Dioxide 27 mmol/L (22-32); Chloride 108 mmol/L (98-107); Estimated Glomerular Filt Rate 59 mL/min (>60); Globulin 3.2 g/dL (1.7-4.1); Glucose 94 mg/dL (80-110); HEMOLYSIS < 15 (0-50); Potassium 3.8 mmol/L (3.4-5.1); Sodium 141 mmol/L (137-145); Total Protein 7.4 g/dL (6.3-8.2)
[2021-10-19 13:25] LABS: Bacteria Urine Few (2-10); Calcium Oxalate Crystals Urine Many; Ictotest Urine Negative (Negative); RBC Urine 10-30/HPF (0-5/HPF); Squamous Epithelial Cell Urine 1-5 /HPF (0-5/HPF); WBC Urine 1-5/HPF (0-5/HPF)
[2021-10-19 13:25] LABS: NT-proBNP (BNP-Adult 18+) 291 pg/mL (<125)
[2021-10-19 13:26] LABS: Culture Indicated Urine Specimen Cultured
--- NOTE | 2021-10-19 14:12 | ED_ITS ---
HPI - SOB/Dyspnea General Chief Complaint: Shortness of Breath/Dyspnea Stated Complaint: Possible heart attack Time Seen by Provider: 10/19/21 14:10 Source: patient Mode of arrival: Ambulatory Limitations: no limitations History of Present Illness HPI Narrative: This is a 71-year-old female with history of AFib on Eliquis with pacemaker present, hypothyroid, hypertension and COPD and sarcoid. Patient comes in with complaint of chest tightness that started Sunday which has been persistent and constant. She states it is exacerbated by exertion such as walking or climbing up ladders which she does at work at [employer]. She has felt tired. She has felt a tightness in her chest substernally without radiation. No cold, cough or congestion no fevers. About 2:30 this morning she woke up and felt very nause ated with the increase of her chest pain as 7/10. Would not exerting herself typically 1 to 2/10. Has not had any syncope but has felt lightheaded. No swelling in her extremities. Patient does have a history COPD with no wheezing. Cholecystectomy, knee surgery, tummy tuck and pacemaker placed 13 years ago which needs replacement. No tobacco, alcohol or illicit. Primary care is Dr. Carroll. 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 Related Data Home Medications Medication Instructions Recorded Confirmed levothyroxine 88 mcg tablet #0 02/06/12 06/06/21 valsartan 80 mg tablet 80 mg PO DAILY #0 02/06/12 06/06/21 apixaban 5 mg tablet (Eliquis) 5 mg PO BID 04/05/21 06/06/21 atorvastatin 80 mg tablet 80 mg PO DAILY 04/05/21 06/06/21 budesonide-formoterol HFA 80 2 puff INHALATION BID 04/05/21 06/06/21 mcg-4.5 mcg/actuation aerosol inhaler (Symbicort) carboxymethylcellulose sodium 0.5 drp EYE-BOTH 04/05/21 06/06/21 % eye drops in a dropperette (Refresh Plus) diclofenac sodium 1 % topical gel 2 g TOPICAL QID 04/05/21 06/06/21 pantoprazole 40 mg tablet,delayed 40 mg PO BID tab 04/05/21 06/06/21 release sotalol 80 mg tablet 80 mg PO BID 04/05/21 06/06/21 Previous Rx's Medication Instructions Recorded lidocaine 5 % topical patch 1 patch TOP DAILY PRN #15 each 11/02/19 tramadol 50 mg tablet 50 mg PO Q6H PRN #20 tab 04/19/21 citalopram 10 mg tablet See Rx Instructions .ROUTE 09/02/21 .COMPLEX #30 tab Allergies Allergy/AdvReac Type Severity Reaction Status Date / Time celecoxib [CELECOXIB] Allergy Unknown Verified 10/19/21 11:59 lactobacillus [LACTOBACILLUS] Allergy Unknown Verified 10/19/21 11:59 morphine [MORPHINE] Allergy Unknown Verified 10/19/21 11:59 oxycodone [OXYCODONE] Allergy Unknown Verified 10/19/21 11:59 Iodine and Iodide Containing Allergy Verified 10/19/21 11:59 Produc IP DYE Allergy Mild Uncoded 06/06/21 15:35 Review of Systems Review of Systems ROS Unobtainable: All systems reviewed & are unremarkable except as noted in HPI and below Patient History Medical History Anxiety and depression (~1996) Chronic back pain (~2012) COPD (chronic obstructive pulmonary disease) (~2018) Endometrial hyperplasia GERD (gastroesophageal reflux disease) (~2009) Headache (~2018) Hypertension (~1995) Hypothyroidism Postmenopausal bleeding Sarcoidosis (~1978) Uterine mass Wears glasses Surgical History Anesthesia History of abdominoplasty (~2012) History of breast lift (~2012) History of carpal tunnel repair History of cataract removal with insertion of prosthetic lens (~2018) History of gastric bypass (~2009) History of knee replacement History of knee replacement Presence of cardiac pacemaker (~2009) Status post breast lumpectomy Status post cholecystectomy (~1979) Status post dilation and curettage Status post surgery (04/09/15) Family History Father Cancer Brother Cancer Brother History of heart disease Hypertension Stroke Sister Cancer Social History Smoking Status: Never smoker alcohol intake: never Smoking Status: Never smoker alcohol intake frequency: holidays/special occasions only Substance Use Type: does not use Exam Narrative Exam Narrative: GENERAL: Alert and oriented x three, female in mild distress. HEENT: Head normocephalic, atraumatic, EOMI, pupils reactive, face symmetric, moist mucous membranes NECK: Supple, full range of motion CARDIOVASCULAR: Regular rate and rhythm without murmurs, rubs or gallops. RESPIRATORY: Breath sounds equal bilaterally, no wheezes rales or rhonchi. ABDOMEN: Soft, nontender. Normoactive bowel sounds all 4 quadrants. No gu arding or rebound, rigidity, no mass : No CVA tenderness EXTREMITIES: Normal range of motion, no clubbing or edema. Neurovascularly intact NEUROLOGICAL: Cranial nerves II through XII grossly intact. Moving all extremities SKIN: Warm, dry, no petechiae, no rashes or lesions. Initial Vital Signs Initial Vital Signs: Vital Signs Temperature 97.7 F 10/19/21 11:59 Pulse Rate 67 10/19/21 11:59 Respiratory Rate 15 10/19/21 11:59 Blood Pressure 163/79 H 10/19/21 11:59 Pulse Oximetry 100 10/19/21 11:59 Course Orders Ordered: ED Orders 10/19/21 11:59 XR chest 2V Stat EKG-12 Lead Stat 10/19/21 12:50 Complete Blood Count AUTO DIFF Stat Comprehensive Metabolic Panel Stat Lactate (Lactic Acid) Stat NT-proBNP (BNP-Adult 18+) Stat PTT [Partial Thromboplastin Time] Stat Prothrombin Time INR Stat Troponin & CK Cardiac Panel Stat 10/19/21 13:00 Ictotest Urine Stat Urine Culture Stat Urine Microscopic Stat 10/19/21 14:20 Trop I [Troponin I] Stat Acetaminophen (Acetaminophen 325 Mg Tablet) 650 mg PO Q6HR PRN PRN Reason: FEVER / PAIN Apixaban (Apixaban 5 Mg Tablet) 5 mg PO BID ROSALBA Atorvastatin Calcium (Atorvastatin 20 Mg Tablet) 80 mg PO DAILY [facility] Citalopram Hydrobromide (Citalopram 10 Mg Tablet) 0 mg PO .COMPLEX ROSALBA Levothyroxine Sodium (Levothyroxine 88 Mcg Tablet) 88 mcg PO DAILY@0600 ROSALBA Morphine Sulfate (Morphine 2 Mg/Ml Inj) 2 mg IV Q4H PRN PRN Reason: Breakthrough pain only (8-10) Naloxone HCl (Naloxone 0.4 Mg/Ml Vial) 0.2 mg IV Q2MIN PRN PRN Reason: Opiate Reversal Non-Formulary Medication (Budesonide-Formoterol [Symbicort]) 2 puff INHALATION BID [facility] Non-Formulary Medication (Diclofenac Sodium) 2 gram TOP QID [facility] Sotalol HCl (Sotalol 80 Mg Tablet) 80 mg PO BID [facility] Tramadol HCl (Tramadol 50 Mg Tablet) 50 mg PO Q6H PRN PRN Reason: pain Valsartan (Valsartan 80 Mg Tablet) 80 mg PO DAILY [facility] Discontinued Medications Aspirin (Aspirin 81 Mg Chew Tab) 324 mg PO NOW ONE Stop: 10/19/21 14:37 Last Admin: 10/19/21 15:43 Dose: 324 mg Documented by: KING Furosemide (Furosemide 40 Mg/4 Ml Vial) 40 mg IV NOW ONE Stop: 10/19/21 15:14 Last Admin: 10/19/21 15:44 Dose: 40 mg Documented by: KING Consultations Consultation #1: Dr. Waters, [facility] cardiology recommend keeping patient for stress testing because she is paced and on sotalol would recommend chemical stress over treadmill. Time: 15:50 Consultation #2: Christopher Diaz, hospitalist. Accepts for chest pain, angina versus unstable angina. COVID swab is pending. Time: 15:51 Vital Signs Vital signs: Vital Signs - 8 hr 10/19/21 11:59 10/19/21 12:33 10/19/21 12:34 Temperature 97.7 F Pulse Rate 67 77 72 Respiratory Rate 15 16 18 Blood Pressure 163/79 H 162/74 H Pulse Oximetry 100 99 100 10/19/21 13:00 10/19/21 13:30 10/19/21 14:00 Temperature Pulse Rate 64 61 62 Respiratory Rate 19 20 21 Blood Pressure 169/72 H Pulse Oximetry 100 97 99 10/19/21 14:30 10/19/21 14:32 10/19/21 15:00 Temperature Pulse Rate 63 61 62 Respiratory Rate 20 18 16 Blood Pressure Pulse Oximetry 100 99 99 10/19/21 15:30 10/19/21 16:00 10/19/21 16:01 Temperature Pulse Rate 60 62 61 Respiratory Rate 19 15 20 Blood Pressure 165/74 H 161/70 H Pulse Oximetry 99 99 99 MDM - SOB/Dyspnea Lab Data Result diagrams: 10/19/21 12:50 10/19/21 12:50 Labs: Lab Results 10/19/21 10/19/21 10/19/21 Range/Units 12:50 12:50 12:50 WBC 6.7 (4.5-11.0) X10^3/uL RBC 4.62 (4.0-5.2) X10^6/uL Hgb 12.1 (12.0-16.0) g/dL Hct 37.4 (36-46) % MCV 81.1 (80-100) fL MCH 26.3 (26-34) PG MCHC 32.4 (30-36) % RDW 16.1 H (11.6-14.8) % Plt Count 231 (150-400) X10^3/uL Neut % (Auto) 65.5 (50-75) % Lymph % (Auto) 23.3 L (25-40) % [place] % (Auto) 8.4 (3-14) % Eos % (Auto) 2.5 (2-4) % Baso % (Auto) 0.3 (0-2) % Neut # (Auto) 4400 (4403-5709) /uL Lymph # (Auto) 1600 (8580-6464) /uL [place] # (Auto) 600 (0-900) /uL Eos # (Auto) 200 (0-450) /uL Baso # (Auto) 0 (0-100) /uL PT 12.5 (10.1-12.7) SECONDS INR 1.1 (0.9-1.3) APTT (26.4-36.2) SECONDS Sodium 141 (137-145) mmol/L Potassium 3.8 (3.4-5.1) mmol/L Chloride 108 H (98-107) mmol/L Carbon Dioxide 27 (22-32) mmol/L BUN 21 H (7-17) mg/dL Creatinine 1.01 (0.52-1.04) mg/dL Estimated GFR 59 L (>60) mL/min BUN/Creatinine Ratio 20.8 (6-22) Glucose 94 (80-110) mg/dL Lactate (0.7-2.1) mmol/L Calcium 9.1 (8.4-10.2) mg/dL Total Bilirubin 1.1 (0.2-1.3) mg/dL AST 24 (14-36) IU/L ALT 12 (<35) IU/L Alkaline Phosphatase 119 (38-126) U/L Total Creatine Kinase (30-135) U/L CK-MB (CK-2) CK-MB (CK-2) Rel Index Troponin I (0.01-0.034) ng/mL NT-Pro-B Natriuret Pep 291 H (<125) pg/mL Total Protein 7.4 (6.3-8.2) g/dL Albumin 4.2 (3.5-5.0) g/dL Globulin 3.2 (1.7-4.1) g/dL Albumin/Globulin Ratio 1.3 (1.0-2.8) Urine Color Urine Appearance Urine pH Ur Specific [place] Urine Protein Urine Glucose (UA) Urine Ketones Urine Occult Blood Urine Nitrate Urine Bilirubin Ur Bilirubin Confirm (Negative) Urine Urobilinogen Ur Leukocyte Esterase Urine RBC (0-5/HPF) Urine WBC (0-5/HPF) Ur Squamous Epith Cells (0-5/HPF) Ur Transition Epith Cell Ur Renal Epithelial Cell Calcium Oxalate Crystal Uric Acid Crystals Triple Phos Crystals Other Crystals Amorphous Sediment Urine Bacteria (None) Hyaline Casts Granular Casts RBC Casts WBC Casts Other Casts Urine Mucus Urine Trichomonas Urine Yeast Urine Sperm Ur Culture Indicated? Micro UA Comment 10/19/21 10/19/21 10/19/21 Range/Units 12:50 12:50 12:50 WBC (4.5-11.0) X10^3/uL RBC (4.0-5.2) X10^6/uL Hgb (12.0-16.0) g/dL Hct (36-46) % MCV (80-100) fL MCH (26-34) PG MCHC (30-36) % RDW (11.6-14.8) % Plt Count (150-400) X10^3/uL Neut % (Auto) (50-75) % Lymph % (Auto) (25-40) % [place] % (Auto) (3-14) % Eos % (Auto) (2-4) % Baso % (Auto) (0-2) % Neut # (Auto) (9158-0815) /uL Lymph # (Auto) (1442-3971) /uL [place] # (Auto) (0-900) /uL Eos # (Auto) (0-450) /uL Baso # (Auto) (0-100) /uL PT (10.1-12.7) SECONDS INR (0.9-1.3) APTT 33 (26.4-36.2) SECONDS Sodium (137-145) mmol/L Potassium (3.4-5.1) mmol/L Chloride (98-107) mmol/L Carbon Dioxide (22-32) mmol/L BUN (7-17) mg/dL Creatinine (0.52-1.04) mg/dL Estimated GFR (>60) mL/min BUN/Creatinine Ratio (6-22) Glucose (80-110) mg/dL Lactate 1.0 (0.7-2.1) mmol/L Calcium (8.4-10.2) mg/dL Total Bilirubin (0.2-1.3) mg/dL AST (14-36) IU/L ALT (<35) IU/L Alkaline Phosphatase (38-126) U/L Total Creatine Kinase 96 (30-135) U/L CK-MB (CK-2) TNP CK-MB (CK-2) Rel Index TNP Troponin I < 0.012 (0.01-0.034) ng/mL NT-Pro-B Natriuret Pep (<125) pg/mL Total Protein (6.3-8.2) g/dL Albumin (3.5-5.0) g/dL Globulin (1.7-4.1) g/dL Albumin/Globulin Ratio (1.0-2.8) Urine Color Urine Appearance Urine pH Ur Specific [place] Urine Protein Urine Glucose (UA) Urine Ketones Urine Occult Blood Urine Nitrate Urine Bilirubin Ur Bilirubin Confirm (Negative) Urine Urobilinogen Ur Leukocyte Esterase Urine RBC (0-5/HPF) Urine WBC (0-5/HPF) Ur Squamous Epith Cells (0-5/HPF) Ur Transition Epith Cell Ur Renal Epithelial Cell Calcium Oxalate Crystal Uric Acid Crystals Triple Phos Crystals Other Crystals Amorphous Sediment Urine Bacteria (None) Hyaline Casts Granular Casts RBC Casts WBC Casts Other Casts Urine Mucus Urine Trichomonas Urine Yeast Urine Sperm Ur Culture Indicated? Micro UA Comment 10/19/21 10/19/21 10/19/21 Range/Units 13:00 13:00 14:20 WBC (4.5-11.0) X10^3/uL RBC (4.0-5.2) X10^6/uL Hgb (12.0-16.0) g/dL Hct (36-46) % MCV (80-100) fL MCH (26-34) PG MCHC (30-36) % RDW (11.6-14.8) % Plt Count (150-400) X10^3/uL Neut % (Auto) (50-75) % Lymph % (Auto) (25-40) % [place] % (Auto) (3-14) % Eos % (Auto) (2-4) % Baso % (Auto) (0-2) % Neut # (Auto) (5977-4626) /uL Lymph # (Auto) (2105-7003) /uL [place] # (Auto) (0-900) /uL Eos # (Auto) (0-450) /uL Baso # (Auto) (0-100) /uL PT (10.1-12.7) SECONDS INR (0.9-1.3) APTT (26.4-36.2) SECONDS Sodium (137-145) mmol/L Potassium (3.4-5.1) mmol/L Chloride (98-107) mmol/L Carbon Dioxide (22-32) mmol/L BUN (7-17) mg/dL Creatinine (0.52-1.04) mg/dL Estimated GFR (>60) mL/min BUN/Creatinine Ratio (6-22) Glucose (80-110) mg/dL Lactate (0.7-2.1) mmol/L Calcium (8.4-10.2) mg/dL Total Bilirubin (0.2-1.3) mg/dL AST (14-36) IU/L ALT (<35) IU/L Alkaline Phosphatase (38-126) U/L Total Creatine Kinase (30-135) U/L CK-MB (CK-2) CK-MB (CK-2) Rel Index Troponin I < 0.012 (0.01-0.034) ng/mL NT-Pro-B Natriuret Pep (<125) pg/mL Total Protein (6.3-8.2) g/dL Albumin (3.5-5.0) g/dL Globulin (1.7-4.1) g/dL Albumin/Globulin Ratio (1.0-2.8) Urine Color Cancelled Urine Appearance Cancelled Urine pH Cancelled Ur Specific [place] Cancelled Urine Protein Cancelled Urine Glucose (UA) Cancelled Urine Ketones Cancelled Urine Occult Blood Cancelled Urine Nitrate Cancelled Urine Bilirubin Cancelled Ur Bilirubin Confirm Negative (Negative) Urine Urobilinogen Cancelled Ur Leukocyte Esterase Cancelled Urine RBC 10-30/hpf H Cancelled (0-5/HPF) Urine WBC 1-5/hpf Cancelled (0-5/HPF) Ur Squamous Epith Cells 1-5 /hpf Cancelled (0-5/HPF) Ur Transition Epith Cell Cancelled Ur Renal Epithelial Cell Cancelled Calcium Oxalate Crystal Many H Cancelled Uric Acid Crystals Cancelled Triple Phos Crystals Cancelled Other Crystals Cancelled Amorphous Sediment Cancelled Urine Bacteria Few (2-10) H Cancelled (None) Hyaline Casts Cancelled Granular Casts Cancelled RBC Casts Cancelled WBC Casts Cancelled Other Casts Cancelled Urine Mucus Cancelled Urine Trichomonas Cancelled Urine Yeast Cancelled Urine Sperm Cancelled Ur Culture Indicated? Specimen cultured Cancelled Micro UA Comment Cancelled Urine Dip Bedside Urine Glucose Negative Bedside Urine Bilirubin + 1 Bedside Urine Ketone - Negative Urine Specific [place] 1.030 Bedside Urine Occult Blood +++ Bedside Urine pH 6.0 Bedside Urine Protein +/- 15 Bedside Urine Urobilinogen - Negative Bedside Urine Nitrite - Negative Bedside Urine Leukocytes +/- 15 Esterase Imaging Data Chest x-ray: Radiologist's Impression: [address] [address] XRay Report Signed Patient: Deneen Gong MR#: [id number] : 1950 Acct:[id number] Age/Sex: 71 / F Date of Service: 10/19/21 Loc: ED Accession Number: [id number] ?? Procedure: XR chest 2V Ordering Provider: Shira Santoro D.O. PROCEDURE:? XR CHEST 2V ? INDICATIONS:? shortness of breath ? TECHNIQUE:? 2 views of the chest were acquired.? ? COMPARISON:? [facility], , XR CHEST 1V, 11/15/2020, 14:42. ? FINDINGS:? ? Surgical changes and devices:? Left chest wall cardiac pacer is stable.? Surgical clips in the right breast and axilla are stable.? ? Lungs and pleura:? Lungs are clear.? No pleural effusions or pneumothorax.? ? Mediastinum:? Mediastinal contours are normal.? Heart size is normal.? ? Bones and chest wall:? No suspicious bony abnormalities.? Soft tissues appear unremarkable.? ? IMPRESSION:? No acute cardiopulmonary disease process. ? ? Dictated by: Nivia Yanez MD, PhD on 10/19/2021 at 13:43 ? ? Approved by: Nivia Yanez MD, PhD on 10/19/2021 at 13:44?? ECG Data Attestation: I personally reviewed and interpreted this ECG as follows: Prior ECG tracings: available for review Interpretation: Atrial paced rhythm, rate of 67 W[place] 238 QRS 80 QTC of 420. No acute ST elevation depression noted. Patient has prior from 11/15/2020 which appears similar. EKG 2. Atrial paced rhythm, positive for PVC. Rate of 60 2p are 260 QRS 84 QTC of 438. No acute ST elevation or depression appreciated. MDM Narrative Medical decision making narrative: This is a 71-year-old female who arrives with complaint of chest pressure, shortness of breath which is exertional but has been present for several days. No acute EKG changes patient does have a history of AFib, hypertension, dyslipidemia and is scheduled to have cardiac stress testing followed by pacemaker replacement on November 07. Patient's initial labs including troponin and EKG do not show clear changes but it is a paced rhythm. Patient's repeat troponin is negative. She was given aspirin, Lasix BNP was slightly elevated. Spoke with cardiology consultation they do recommend a keeping her for stress testing. Their recommendation is actually chemical stress test as patient has a paced rhythm as on sotalol which would blunt her tachycardic response and make treadmill stress testing unlikely to be successful. Spoke with hospitalist, who accepts for observation. Discharge Plan Departure Patient Disposition: Admitted as Observation Clinical Impression: Chest pain Admit Date/Time: 10/19/21 16:31 Admit Provider: Maximo Espinoza
[2021-10-19 14:28] LABS: Creatine Kinase 96 U/L (30-135)
[2021-10-19 14:40] LABS: Troponin I < 0.012 ng/mL (0.01-0.034)
[2021-10-19 15:14] LABS: Troponin I < 0.012 ng/mL (0.01-0.034)
[2021-10-19 15:23] LABS: INR 1.1 (0.9-1.3); Prothrombin Time 12.5 SECONDS (10.1-12.7)
[2021-10-19 15:35] LABS: PTT Partial Thromboplastin Tim 33 SECONDS (26.4-36.2)
[2021-10-19] MEDS: ASPIRIN 81 MG CHEW TAB 324 MG PO (15:43)
[2021-10-19] MEDS: FUROSEMIDE 40 MG/4 ML VIAL IV (15:44)
--- NOTE | 2021-10-19 18:31 | PM.HP.1 ---
History of Present Illness History of Present Illness Date Patient Seen: 10/19/21 Chief complaint: Possible heart attack Narrative: THIS IS A 71-YEAR-OLD FEMALE FOR PAST MEDICAL HISTORY SIGNIFICANT FOR COPD, GERD, ANXIETY AND DEPRESSION, SICK SINUS SYNDROME LIKELY SECONDARY TO SARCOIDOSIS REQUIRING PACEMAKER PLACEMENT. PER PATIENT, HER PACEMAKER IS ABOUT 13 YEARS OLD. 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 PATIENT CAME TO THE ED REPORTEDLY PER HER PROVIDER RECOMMENDATION DUE TO REPORTED INCREASING CHEST PRESSURE ASSOCIATED WITH DYSPNEA ON EXERTION. PATIENT REPORTED THAT FOR THE LAST COUPLE OF WEEKS HE HAS BEEN HAVING INCREASING DYSPNEA ON EXERTION. NOT ASSOCIATED WITH DIAPHORESIS. DENIES NAUSEA OR VOMITING. NO CHEST PAIN. NO CHEST PALPITATIONS SHE STATED THAT IS REALLY THE SHORTNESS OF [facility] WITH EXERTION GETS BETTER AT REST SHE DENIES ANY INCREASING SWELLING TO THE LOWER EXTREMITIES. NO RECENT WEIGHT LOSS OR WEIGHT GAIN. NO RECENT TRAVELS. NO COUGH. NO BLOOD IN THE SPUTUM. NO BLOOD PER RECTUM. NO HEAT OR COLD INTOLERANCE. THE WORKUP IN THE ER WAS FAIRLY UNREMARKABLE. Patient History Medical History Anxiety and depression (~1996) Chronic back pain (~2012) COPD (chronic obstructive pulmonary disease) (~2018) Endometrial hyperplasia GERD (gastroesophageal reflux disease) (~2009) Headache (~2018) Hypertension (~1995) Hypothyroidism Postmenopausal bleeding Sarcoidosis (~1978) Uterine mass Wears glasses Surgical History Anesthesia History of abdominoplasty (~2012) History of breast lift (~2012) History of carpal tunnel repair History of cataract removal with insertion of prosthetic lens (~2018) History of gastric bypass (~2009) History of knee replacement History of knee replacement Presence of cardiac pacemaker (~2009) Status post breast lumpectomy Status post cholecystectomy (~1979) Status post dilation and curettage Status post surgery (04/09/15) Family & Social History Family History Father Cancer Brother Cancer Brother History of heart disease Hypertension Stroke Sister Cancer Safety & Behavioral: Feels Safe in Current Yes Environment Been Physically Hurt or No Threatened By a Person Tobacco & Substance use: Smoking Status Never smoker alcohol intake never alcohol intake frequency holiday/special occasion Substance Use Type does not use Meds Home Medications and Allergies Home Medications Medication Instructions Recorded Confirmed Type levothyroxine 88 mcg tablet #0 02/06/12 06/06/21 History valsartan 80 mg tablet 80 mg PO DAILY #0 02/06/12 06/06/21 History lidocaine 5 % topical patch 1 patch TOP DAILY PRN #15 each 11/02/19 06/06/21 Rx apixaban 5 mg tablet (Eliquis) 5 mg PO BID 04/05/21 06/06/21 History atorvastatin 80 mg tablet 80 mg PO DAILY 04/05/21 06/06/21 History budesonide-formoterol HFA 80 2 puff INHALATION BID 04/05/21 06/06/21 History mcg-4.5 mcg/actuation aerosol inhaler (Symbicort) carboxymethylcellulose sodium 0.5 drp EYE-BOTH 04/05/21 06/06/21 History % eye drops in a dropperette (Refresh Plus) diclofenac sodium 1 % topical gel 2 g TOPICAL QID 04/05/21 06/06/21 History pantoprazole 40 mg tablet,delayed 40 mg PO BID tab 04/05/21 06/06/21 History release sotalol 80 mg tablet 80 mg PO BID 04/05/21 06/06/21 History tramadol 50 mg tablet 50 mg PO Q6H PRN #20 tab 04/19/21 06/06/21 Rx citalopram 10 mg tablet See Rx Instructions .ROUTE 09/02/21 Rx .COMPLEX #30 tab Allergies Allergy/AdvReac Type Severity Reaction Status Date / Time celecoxib [CELECOXIB] Allergy Unknown Verified 10/19/21 11:59 lactobacillus [LACTOBACILLUS] Allergy Unknown Verified 10/19/21 11:59 morphine [MORPHINE] Allergy Unknown Verified 10/19/21 11:59 oxycodone [OXYCODONE] Allergy Unknown Verified 10/19/21 11:59 Iodine and Iodide Containing Allergy Verified 10/19/21 11:59 Produc IP DYE Allergy Mild Uncoded 06/06/21 15:35 Review of Systems Review of Systems Narrative: NEGATIVE UNLESS NOTED ABOVE IN HPI Exam Vital Signs (past 8 hours): - 10/19/21 11:59 10/19/21 12:33 10/19/21 12:34 Temperature 97.7 F Pulse Rate 67 77 72 Respiratory Rate 15 16 18 Blood Pressure 163/79 H 162/74 H Pulse Oximetry 100 99 100 10/19/21 13:00 10/19/21 13:30 10/19/21 14:00 Temperature Pulse Rate 64 61 62 Respiratory Rate 19 20 21 Blood Pressure 169/72 H Pulse Oximetry 100 97 99 10/19/21 14:30 10/19/21 14:32 10/19/21 15:00 Temperature Pulse Rate 63 61 62 Respiratory Rate 20 18 16 Blood Pressure Pulse Oximetry 100 99 99 10/19/21 15:30 10/19/21 16:00 10/19/21 16:01 Temperature Pulse Rate 60 62 61 Respiratory Rate 19 15 20 Blood Pressure 165/74 H 161/70 H Pulse Oximetry 99 99 99 10/19/21 16:57 10/19/21 18:10 Temperature 98.2 F Pulse Rate 62 Respiratory Rate 18 Blood Pressure 183/74 H Pulse Oximetry 99 99 Oxygen Delivery Method Room Air Narrative Exam Narrative: NO ACUTE DISTRESS. PATIENT IS ALERT ORIENTED X3. VITAL SIGNS STABLE HEAD ATRAUMATIC NORMOCEPHALIC NECK : SUPPLE WITHOUT ADENOPATHY NO CAROTID BRUITS EYE: EOMI, PERRLA, NORMAL CONJUNCTIVA; NO JAUNDICE CHEST: REGULAR RATE. NO RUBS. PMI IS NON DISPLACED. NO MURMURS; NORMAL S1-S2 PULMONARY: DECREASED BS OVER THE BASES. MILD BIBASILAR CRACKLES NOTED; NO INCREASED DULLNESS TO PERCUSSION ABDOMEN: SOFT. NONTENDER. NONDISTENDED. BOWEL SOUNDS ARE PRESENT IN ALL 4 QUADRANTS. NO MASS. EXTREMITIES: NO EDEMA.. NO CYANOSIS CLUBBING NOTED. NEURO: CRANIAL NERVES 2-12 GROSSLY INTACT. NO FOCAL NEUROLOGICAL DEFICIT NOTED. MSK: NORMAL RANGE OF MOTION FOR AGE. NO JOINT EFFUSION. SKIN: NORMAL FOR ETHNICITY; NO ECCHYMOSIS. NO LESION. GOOD TURGOR.; NO RASHES : NORMAL EXTERNAL GENITALIA. PSYCH : APPROPRIATE MOOD AND AFFECT. ALERT AWAKE ORIENTED X3 Objective Labs Result Diagrams: 10/19/21 12:50 10/19/21 12:50 Labs: Laboratory Results - last 24 hr 10/19/21 10/19/21 10/19/21 12:50 12:50 12:50 WBC 6.7 RBC 4.62 Hgb 12.1 Hct 37.4 MCV 81.1 MCH 26.3 MCHC 32.4 RDW 16.1 H Plt Count 231 Neut % (Auto) 65.5 Lymph % (Auto) 23.3 L [place] % (Auto) 8.4 Eos % (Auto) 2.5 Baso % (Auto) 0.3 Neut # (Auto) 4400 Lymph # (Auto) 1600 [place] # (Auto) 600 Eos # (Auto) 200 Baso # (Auto) 0 PT 12.5 INR 1.1 APTT Sodium 141 Potassium 3.8 Chloride 108 H Carbon Dioxide 27 BUN 21 H Creatinine 1.01 Estimated GFR 59 L BUN/Creatinine Ratio 20.8 Glucose 94 Lactate Calcium 9.1 Total Bilirubin 1.1 AST 24 ALT 12 Alkaline Phosphatase 119 Total Creatine Kinase CK-MB (CK-2) CK-MB (CK-2) Rel Index Troponin I NT-Pro-B Natriuret Pep 291 H Total Protein 7.4 Albumin 4.2 Globulin 3.2 Albumin/Globulin Ratio 1.3 Urine Color Urine Appearance Urine pH Ur Specific [place] Urine Protein Urine Glucose (UA) Urine Ketones Urine Occult Blood Urine Nitrate Urine Bilirubin Ur Bilirubin Confirm Urine Urobilinogen Ur Leukocyte Esterase Urine RBC Urine WBC Ur Squamous Epith Cells Ur Transition Epith Cell Ur Renal Epithelial Cell Calcium Oxalate Crystal Uric Acid Crystals Triple Phos Crystals Other Crystals Amorphous Sediment Urine Bacteria Hyaline Casts Granular Casts RBC Casts WBC Casts Other Casts Urine Mucus Urine Trichomonas Urine Yeast Urine Sperm Ur Culture Indicated? Micro UA Comment SARS-CoV-2 (PCR) 10/19/21 10/19/21 10/19/21 12:50 12:50 12:50 WBC RBC Hgb Hct MCV MCH MCHC RDW Plt Count Neut % (Auto) Lymph % (Auto) [place] % (Auto) Eos % (Auto) Baso % (Auto) Neut # (Auto) Lymph # (Auto) [place] # (Auto) Eos # (Auto) Baso # (Auto) PT INR APTT 33 Sodium Potassium Chloride Carbon Dioxide BUN Creatinine Estimated GFR BUN/Creatinine Ratio Glucose Lactate 1.0 Calcium Total Bilirubin AST ALT Alkaline Phosphatase Total Creatine Kinase 96 CK-MB (CK-2) TNP CK-MB (CK-2) Rel Index TNP Troponin I < 0.012 NT-Pro-B Natriuret Pep Total Protein Albumin Globulin Albumin/Globulin Ratio Urine Color Urine Appearance Urine pH Ur Specific [place] Urine Protein Urine Glucose (UA) Urine Ketones Urine Occult Blood Urine Nitrate Urine Bilirubin Ur Bilirubin Confirm Urine Urobilinogen Ur Leukocyte Esterase Urine RBC Urine WBC Ur Squamous Epith Cells Ur Transition Epith Cell Ur Renal Epithelial Cell Calcium Oxalate Crystal Uric Acid Crystals Triple Phos Crystals Other Crystals Amorphous Sediment Urine Bacteria Hyaline Casts Granular Casts RBC Casts WBC Casts Other Casts Urine Mucus Urine Trichomonas Urine Yeast Urine Sperm Ur Culture Indicated? Micro UA Comment SARS-CoV-2 (PCR) 10/19/21 10/19/21 10/19/21 13:00 13:00 14:20 WBC RBC Hgb Hct MCV MCH MCHC RDW Plt Count Neut % (Auto) Lymph % (Auto) [place] % (Auto) Eos % (Auto) Baso % (Auto) Neut # (Auto) Lymph # (Auto) [place] # (Auto) Eos # (Auto) Baso # (Auto) PT INR APTT Sodium Potassium Chloride Carbon Dioxide BUN Creatinine Estimated GFR BUN/Creatinine Ratio Glucose Lactate Calcium Total Bilirubin AST ALT Alkaline Phosphatase Total Creatine Kinase CK-MB (CK-2) CK-MB (CK-2) Rel Index Troponin I < 0.012 NT-Pro-B Natriuret Pep Total Protein Albumin Globulin Albumin/Globulin Ratio Urine Color Cancelled Urine Appearance Cancelled Urine pH Cancelled Ur Specific [place] Cancelled Urine Protein Cancelled Urine Glucose (UA) Cancelled Urine Ketones Cancelled Urine Occult Blood Cancelled Urine Nitrate Cancelled Urine Bilirubin Cancelled Ur Bilirubin Confirm Negative Urine Urobilinogen Cancelled Ur Leukocyte Esterase Cancelled Urine RBC 10-30/hpf H Cancelled Urine WBC 1-5/hpf Cancelled Ur Squamous Epith Cells 1-5 /hpf Cancelled Ur Transition Epith Cell Cancelled Ur Renal Epithelial Cell Cancelled Calcium Oxalate Crystal Many H Cancelled Uric Acid Crystals Cancelled Triple Phos Crystals Cancelled Other Crystals Cancelled Amorphous Sediment Cancelled Urine Bacteria Few (2-10) H Cancelled Hyaline Casts Cancelled Granular Casts Cancelled RBC Casts Cancelled WBC Casts Cancelled Other Casts Cancelled Urine Mucus Cancelled Urine Trichomonas Cancelled Urine Yeast Cancelled Urine Sperm Cancelled Ur Culture Indicated? Specimen cultured Cancelled Micro UA Comment Cancelled SARS-CoV-2 (PCR) 10/19/21 16:53 WBC RBC Hgb Hct MCV MCH MCHC RDW Plt Count Neut % (Auto) Lymph % (Auto) [place] % (Auto) Eos % (Auto) Baso % (Auto) Neut # (Auto) Lymph # (Auto) [place] # (Auto) Eos # (Auto) Baso # (Auto) PT INR APTT Sodium Potassium Chloride Carbon Dioxide BUN Creatinine Estimated GFR BUN/Creatinine Ratio Glucose Lactate Calcium Total Bilirubin AST ALT Alkaline Phosphatase Total Creatine Kinase CK-MB (CK-2) CK-MB (CK-2) Rel Index Troponin I NT-Pro-B Natriuret Pep Total Protein Albumin Globulin Albumin/Globulin Ratio Urine Color Urine Appearance Urine pH Ur Specific [place] Urine Protein Urine Glucose (UA) Urine Ketones Urine Occult Blood Urine Nitrate Urine Bilirubin Ur Bilirubin Confirm Urine Urobilinogen Ur Leukocyte Esterase Urine RBC Urine WBC Ur Squamous Epith Cells Ur Transition Epith Cell Ur Renal Epithelial Cell Calcium Oxalate Crystal Uric Acid Crystals Triple Phos Crystals Other Crystals Amorphous Sediment Urine Bacteria Hyaline Casts Granular Casts RBC Casts WBC Casts Other Casts Urine Mucus Urine Trichomonas Urine Yeast Urine Sperm Ur Culture Indicated? Micro UA Comment SARS-CoV-2 (PCR) Positive H Assessment & Plan Assessment & Plan narrative: IMPRESSION CHEST PRESSURE. R/O ACS SUSPECTED. MULTIPLE COMORBIDITIES POSSIBLE PACEMAKER MALFUNCTIONING. TO BE EVALUATED OUTPATIENT COVID 19 POSITIVE. NO UPPER RESPIRATORY SYMPTOMS ELIQUIS COAGULOPATHY. MONITOR CLOSELY HYPERTENSION PER HISTORY ATRIAL FIBRILLATION PER HISTORY SARCOIDOSIS PER HISTORY OBESITY. BMI OF 34. LAB/CHANGES RECOMMENDED HYPOTHYROIDISM PER HISTORY GERD PER HISTORY COPD PER HISTORY. SIGN OF ACUTE EXACERBATION PLAN IN REGARD TO PATIENT'S COMPLAINT OF CHEST PRESSURE NO REPORTED CHEST PAIN PER SE WILL CONTINUE TO TREND TROPONIN LEVEL INITIAL TROPONIN LEVELS NEGATIVE SO FAR NO SIGNIFICANT CHANGES ON EKG OR TELEMETRY. KEEP ON TELEMETRY AT ALL TIMES MORPHINE AND NITROGLYCERIN NEEDED PATIENT IS ON ELIQUIS FOR ATRIAL FIBRILLATION CONSIDER ADDING ASPIRIN WELL IF INDICATED PER CARDIOLOGY REPORT, STRESS TEST WAS PLANNED DUE TO HER REPORTED SYMPTOMS WE WILL GO AHEAD AND ORDER CHEST THE STRESS TEST WHILE PATIENT IS INHOUSE CONSIDER ECHOCARDIOGRAM WELL IF INDICATED HOWEVER THIS COULD BE DONE BY OUTPATIENT PROVIDERS CONTINUE HOME MEDS INDICATED ADDITIONAL MANAGEMENT PER CLINICAL COURSE PATIENT IS AWARE OF THE PLAN AND MANAGEMENT AND AGREEABLE LIKELY DISCHARGE IN THE NEXT 24 HOURS IF CLINICALLY STABLE Time Spent With Patient Critical Care time: I spent a total of [] minutes of critical care time on this patient's care today; this time is exclusive of procedural time.
[2021-10-19 18:54] LABS: COVID19 -Nasal RAPID POSITIVE (Negative)
--- NOTE | 2021-10-19 18:56 | PC.NURSE ---
Patient admitted for sob and chest pain, she states that this is related to needing a new pace maker. Covid test came back positive, she states that she has taken like 7 test in the last week and she has been negative. Patient in shock that she is positive, second covid test, pcr ran on patient. She is independent in room and knows how to use call [facility]ullivan with needs. Denies pain, chest pain, or sob at this time. Patient is on RA at this time. Patient is going to have a half of sandwich now.
[2021-10-19 20:48] LABS: Troponin I < 0.012 ng/mL (0.01-0.034)
[2021-10-19] MEDS: APIXABAN 5 MG TABLET PO (20:50)
[2021-10-19] MEDS: SOTALOL 80 MG TABLET PO (20:50)
[2021-10-20] VITALS: BP 135/76; PULSE 68; RESP 18; TEMP 36.6; O2SAT 96
[2021-10-20 05:00] VITALS: BP 134/76; PULSE 69; RESP 18; TEMP 36.6; O2SAT 98
[2021-10-20 06:00] VITALS: O2SAT 98
[2021-10-20] MEDS: LEVOTHYROXINE 88 MCG TABLET PO (06:00)
[2021-10-20 08:43] VITALS: O2SAT 97
[2021-10-20] MEDS: BUDESONIDE 0.5 MG/2 ML NEB INH (08:43)
--- NOTE | 2021-10-20 08:49 | P.DS_ITS ---
History of Present Illness History of Present Illness Chief complaint: Possible heart attack Narrative: THIS IS A 71-YEAR-OLD FEMALE FOR PAST MEDICAL HISTORY SIGNIFICANT FOR COPD, GERD, ANXIETY AND DEPRESSION, SICK SINUS SYNDROME LIKELY SECONDARY TO SARCOIDOSIS REQUIRING PACEMAKER PLACEMENT. PER PATIENT, HER PACEMAKER IS ABOUT 13 YEARS OLD. SHE HAS BEEN HAVING ISSUES WITH HER PACEMAKER AND AFTER FURTHER EVALUATION BY HER APPLICATION DEVELOPMENT PROJECT MANAGER SHE WAS SUPPOSED TO HAVE A STRESS TEST AND A POSSIBLE PLACEMENT OF THE PACEMAKER DONE SOMETIMES IN THE UPCOMING WEEKS. PATIENT CAME TO THE ED REPORTEDLY PER HER PROVIDER RECOMMENDATION DUE TO REPORTED INCREASING CHEST PRESSURE ASSOCIATED WITH DYSPNEA ON EXERTION. PATIENT REPORTED THAT FOR THE LAST COUPLE OF WEEKS HE HAS BEEN HAVING INCREASING DYSPNEA ON EXERTION. NOT ASSOCIATED WITH DIAPHORESIS. DENIES NAUSEA OR VOMITING. NO CHEST PAIN. NO CHEST PALPITATIONS SHE STATED THAT IS REALLY THE SHORTNESS OF BREATH HOSPITAL WITH EXERTION GETS BETTER AT REST SHE DENIES ANY INCREASING SWELLING TO THE LOWER EXTREMITIES. NO RECENT WEIGHT LOSS OR WEIGHT GAIN. NO RECENT TRAVELS. NO COUGH. NO BLOOD IN THE SPUTUM. NO BLOOD PER RECTUM. NO HEAT OR COLD INTOLERANCE. THE WORKUP IN THE ER WAS FAIRLY UNREMARKABLE. Discharge Providers Provider Date of admission: 10/19/21 16:31 Discharge Date: 10/20/21 Primary care physician: Shea Rosas MD Discharge provider: Maximo Espinoza DO Summary Hospital Course Discharge Diagnosis: CHEST PRESSURE. ACS RULED OUT .? RESOLVED ?POSSIBLE PACEMAKER MALFUNCTIONING.? TO BE EVALUATED OUTPATIENT BY CARDIOLOGY; NEEDED REPLACEMENT ?COVID 19? POSITIVE.? NO UPPER RESPIRATORY SYMPTOMS; NO ACUTE INDICATED ?ELIQUIS COAGULOPATHY.? MONITOR CLOSELY ?HYPERTENSION PER HISTORY. CONTINUE HOME MED ?ATRIAL FIBRILLATION PER HISTORY. HEART RATE FAIRLY STABLE ? SARCOIDOSIS PER HISTORY ?OBESITY.? BMI OF 34.? LIFESTYLE CHANGES RECOMMENDED ?HYPOTHYROIDISM PER HISTORY. CONTINUE HOME DOSE ?GERD PER HISTORY. DISCHARGE ON PROTONIX PER HOME DOSE ?COPD PER HISTORY.? NO SIGNS OF ACUTE EXACERBATION Hospital Course: THIS IS A VERY PLEASANT 72-YEAR-OLD FEMALE FOR HISTORY OF PRIOR PACEMAKER PLACEMENT LIKELY RELATED TO COMPLICATION FROM SARCOIDOSIS. PATIENT CAME TO THE HOSPITAL REPORTING INCREASING SHORTNESS OF BREATH AND CHEST PRESSURE DURING AMBULATION. PATIENT HAS BEING SCHEDULED FOR STRESS TESTING OUTPATIENT BY HER APPLICATION DEVELOPMENT PROJECT MANAGER. HOWEVER SHE STATED THAT SHE CALL HER APPLICATION DEVELOPMENT PROJECT MANAGER OFFICE TO REPORT THIS SYMPTOM AND WAS TOLD TO COME TO THE ER FOR FURTHER WORKUP. HER WORKUP WAS FAIRLY UNREMARKABLE. HOWEVER DUE TO MULTIPLE COMORBIDITIES ACS NEEDED TO BE RULED OUT. HER TROPONIN REMAINED NEGATIVE. NO SIGNIFICANT CHANGES ON TELEMETRY AND EKG. CHEST IMAGING DID NOT SHOW ANY ACUTE PROCESS. IN ANY CASE, STRESS TEST WAS PLANNED FOR THIS MORNING HOWEVER PATIENT TESTED POSITIVE FOR COVID-19 DESPITE NOT HAVING ANY UPPER OR LOWER RESPIRATORY SYMPTOMS. SHE HAS BEEN ON ROOM AIR. NO FEVER NOTED DURING ADMISSION. FURTHERMORE PATIENT REPORTED SELF TESTING AT LEAST 7 TIMES OVER THE LAST FEW WEEKS WITH A NEGATIVE RESULTS. IN ANY CASE, DUE TO CURRENT HOSPITAL PROTOCOL, WE ARE UNABLE TO PERFORM THE STRESS TEST. PATIENT WILL BE DISCHARGED TO HOME. SHE HAS A SCHEDULED APPOINTMENT FOR NEXT MONTH IN ANY CASE FOR THE STRESS TEST TO BE DONE. SHE WAS INSTRUCTED TO KEEP THAT APPOINTMENT AND TO LET HER PROVIDER KNOW ABOUT HER POSITIVE COVID-19 TEST. SHE APPEARS TO BE STABLE AT THIS TIME. SHE WILL BE DISCHARGED TO HOME. ADDITIONAL MANAGEMENT WILL BE PER OUTPATIENT PROVIDERS Status at Discharge Cognitive/behavioral status at discharge: oriented Functional status at discharge: independent ambulation Overall status at discharge: patient is back to baseline Time Spent with Patient Time spent: Greater than 30 minutes Exam Vital Signs (past 8 hours): - 10/20/21 05:00 10/20/21 06:00 10/20/21 08:43 Temperature 97.9 F Pulse Rate 69 Respiratory Rate 18 Blood Pressure 134/76 Pulse Oximetry 98 98 97 Oxygen Delivery Method Room Air Oxygen Flow Rate 0 Narrative Exam Narrative: NO ACUTE DISTRESS. PATIENT IS ALERT ORIENTED X3. VITAL SIGNS STABLE HEAD ATRAUMATIC NORMOCEPHALIC NECK : SUPPLE WITHOUT ADENOPATHY NO CAROTID BRUITS EYE: EOMI, PERRLA, NORMAL CONJUNCTIVA; NO JAUNDICE CHEST: REGULAR RATE. NO RUBS. PMI IS NON DISPLACED. NO MURMURS; NORMAL S1- S2 PULMONARY: DECREASED BS OVER THE BASES. MILD BIBASILAR CRACKLES NOTED; NO INCREASED DULLNESS TO PERCUSSION ABDOMEN: SOFT. NONTENDER. NONDISTENDED. BOWEL SOUNDS ARE PRESENT IN ALL 4 QUADRANTS. NO MASS. EXTREMITIES: NO EDEMA.. NO CYANOSIS CLUBBING NOTED. NEURO: CRANIAL NERVES 2-12 GROSSLY INTACT. NO FOCAL NEUROLOGICAL DEFICIT NOTED. MSK: NORMAL RANGE OF MOTION FOR AGE. NO JOINT EFFUSION. SKIN: NORMAL FOR ETHNICITY; NO ECCHYMOSIS. NO LESION. GOOD TURGOR.; NO RASHES : NORMAL EXTERNAL GENITALIA. PSYCH : APPROPRIATE MOOD AND AFFECT. ALERT AWAKE ORIENTED X3 Objective Labs Result Diagrams: 05/18/22 12:50 10/19/21 12:50 Labs: Laboratory Results - last 24 hr 10/19/21 10/19/21 10/19/21 12:50 12:50 12:50 WBC 6.7 RBC 4.62 Hgb 12.1 Hct 37.4 MCV 81.1 MCH 26.3 MCHC 32.4 RDW 16.1 H Plt Count 231 Neut % (Auto) 65.5 Lymph % (Auto) 23.3 L Jack % (Auto) 8.4 Eos % (Auto) 2.5 Baso % (Auto) 0.3 Neut # (Auto) 4400 Lymph # (Auto) 1600 Jack # (Auto) 600 Eos # (Auto) 200 Baso # (Auto) 0 PT 12.5 INR 1.1 APTT Sodium 141 Potassium 3.8 Chloride 108 H Carbon Dioxide 27 BUN 21 H Creatinine 1.01 Estimated GFR 59 L BUN/Creatinine Ratio 20.8 Glucose 94 Lactate Calcium 9.1 Total Bilirubin 1.1 AST 24 ALT 12 Alkaline Phosphatase 119 Total Creatine Kinase CK-MB (CK-2) CK-MB (CK-2) Rel Index Troponin I NT-Pro-B Natriuret Pep 291 H Total Protein 7.4 Albumin 4.2 Globulin 3.2 Albumin/Globulin Ratio 1.3 Urine Color Urine Appearance Urine pH Ur Specific [place] Urine Protein Urine Glucose (UA) Urine Ketones Urine Occult Blood Urine Nitrate Urine Bilirubin Ur Bilirubin Confirm Urine Urobilinogen Ur Leukocyte Esterase Urine RBC Urine WBC Ur Squamous Epith Cells Ur Transition Epith Cell Ur Renal Epithelial Cell Calcium Oxalate Crystal Uric Acid Crystals Triple Phos Crystals Other Crystals Amorphous Sediment Urine Bacteria Hyaline Casts Granular Casts RBC Casts WBC Casts Other Casts Urine Mucus Urine Trichomonas Urine Yeast Urine Sperm Ur Culture Indicated? Micro UA Comment SARS-CoV-2 (PCR) 10/19/21 10/19/21 10/19/21 12:50 12:50 12:50 WBC RBC Hgb Hct MCV MCH MCHC RDW Plt Count Neut % (Auto) Lymph % (Auto) Jack % (Auto) Eos % (Auto) Baso % (Auto) Neut # (Auto) Lymph # (Auto) Jack # (Auto) Eos # (Auto) Baso # (Auto) PT INR APTT 33 Sodium Potassium Chloride Carbon Dioxide BUN Creatinine Estimated GFR BUN/Creatinine Ratio Glucose Lactate 1.0 Calcium Total Bilirubin AST ALT Alkaline Phosphatase Total Creatine Kinase 96 CK-MB (CK-2) TNP CK-MB (CK-2) Rel Index TNP Troponin I < 0.012 NT-Pro-B Natriuret Pep Total Protein Albumin Globulin Albumin/Globulin Ratio Urine Color Urine Appearance Urine pH Ur Specific [place] Urine Protein Urine Glucose (UA) Urine Ketones Urine Occult Blood Urine Nitrate Urine Bilirubin Ur Bilirubin Confirm Urine Urobilinogen Ur Leukocyte Esterase Urine RBC Urine WBC Ur Squamous Epith Cells Ur Transition Epith Cell Ur Renal Epithelial Cell Calcium Oxalate Crystal Uric Acid Crystals Triple Phos Crystals Other Crystals Amorphous Sediment Urine Bacteria Hyaline Casts Granular Casts RBC Casts WBC Casts Other Casts Urine Mucus Urine Trichomonas Urine Yeast Urine Sperm Ur Culture Indicated? Micro UA Comment SARS-CoV-2 (PCR) 10/19/21 10/19/21 10/19/21 13:00 13:00 14:20 WBC RBC Hgb Hct MCV MCH MCHC RDW Plt Count Neut % (Auto) Lymph % (Auto) Jack % (Auto) Eos % (Auto) Baso % (Auto) Neut # (Auto) Lymph # (Auto) Jack # (Auto) Eos # (Auto) Baso # (Auto) PT INR APTT Sodium Potassium Chloride Carbon Dioxide BUN Creatinine Estimated GFR BUN/Creatinine Ratio Glucose Lactate Calcium Total Bilirubin AST ALT Alkaline Phosphatase Total Creatine Kinase CK-MB (CK-2) CK-MB (CK-2) Rel Index Troponin I < 0.012 NT-Pro-B Natriuret Pep Total Protein Albumin Globulin Albumin/Globulin Ratio Urine Color Cancelled Urine Appearance Cancelled Urine pH Cancelled Ur Specific [place] Cancelled Urine Protein Cancelled Urine Glucose (UA) Cancelled Urine Ketones Cancelled Urine Occult Blood Cancelled Urine Nitrate Cancelled Urine Bilirubin Cancelled Ur Bilirubin Confirm Negative Urine Urobilinogen Cancelled Ur Leukocyte Esterase Cancelled Urine RBC 10-30/hpf H Cancelled Urine WBC 1-5/hpf Cancelled Ur Squamous Epith Cells 1-5 /hpf Cancelled Ur Transition Epith Cell Cancelled Ur Renal Epithelial Cell Cancelled Calcium Oxalate Crystal Many H Cancelled Uric Acid Crystals Cancelled Triple Phos Crystals Cancelled Other Crystals Cancelled Amorphous Sediment Cancelled Urine Bacteria Few (2-10) H Cancelled Hyaline Casts Cancelled Granular Casts Cancelled RBC Casts Cancelled WBC Casts Cancelled Other Casts Cancelled Urine Mucus Cancelled Urine Trichomonas Cancelled Urine Yeast Cancelled Urine Sperm Cancelled Ur Culture Indicated? Specimen cultured Cancelled Micro UA Comment Cancelled SARS-CoV-2 (PCR) 10/19/21 10/19/21 16:53 20:07 WBC RBC Hgb Hct MCV MCH MCHC RDW Plt Count Neut % (Auto) Lymph % (Auto) Jack % (Auto) Eos % (Auto) Baso % (Auto) Neut # (Auto) Lymph # (Auto) Jack # (Auto) Eos # (Auto) Baso # (Auto) PT INR APTT Sodium Potassium Chloride Carbon Dioxide BUN Creatinine Estimated GFR BUN/Creatinine Ratio Glucose Lactate Calcium Total Bilirubin AST ALT Alkaline Phosphatase Total Creatine Kinase CK-MB (CK-2) CK-MB (CK-2) Rel Index Troponin I < 0.012 NT-Pro-B Natriuret Pep Total Protein Albumin Globulin Albumin/Globulin Ratio Urine Color Urine Appearance Urine pH Ur Specific [place] Urine Protein Urine Glucose (UA) Urine Ketones Urine Occult Blood Urine Nitrate Urine Bilirubin Ur Bilirubin Confirm Urine Urobilinogen Ur Leukocyte Esterase Urine RBC Urine WBC Ur Squamous Epith Cells Ur Transition Epith Cell Ur Renal Epithelial Cell Calcium Oxalate Crystal Uric Acid Crystals Triple Phos Crystals Other Crystals Amorphous Sediment Urine Bacteria Hyaline Casts Granular Casts RBC Casts WBC Casts Other Casts Urine Mucus Urine Trichomonas Urine Yeast Urine Sperm Ur Culture Indicated? Micro UA Comment SARS-CoV-2 (PCR) Positive H PFSH Medical History Anxiety and depression (~1996) Chronic back pain (~2012) COPD (chronic obstructive pulmonary disease) (~2018) Endometrial hyperplasia GERD (gastroesophageal reflux disease) (~2009) Headache (~2018) Hypertension (~1995) Hypothyroidism Postmenopausal bleeding Sarcoidosis (~1978) Uterine mass Wears glasses Surgical History Anesthesia History of abdominoplasty (~2012) History of breast lift (~2012) History of carpal tunnel repair History of cataract removal with insertion of prosthetic lens (~2018) History of gastric bypass (~2009) History of knee replacement History of knee replacement Presence of cardiac pacemaker (~2009) Status post breast lumpectomy Status post cholecystectomy (~1979) Status post dilation and curettage Status post surgery (04/09/15) Family History Father Cancer Brother Cancer Brother History of heart disease Hypertension Stroke Sister Cancer Social History household members: friend(s) Smoking Status: Never smoker alcohol intake: never Discharge Plan Discharge Plan Patient Disposition: Home Discharge orders & Medications Prescriptions: New nitroglycerin [Nitrostat] 0.4 mg Tablet, Sublingual 0.4 mg sublingual [id number] PRN (Reason: Chest Pain) Qty: 12 0RF aspirin [Aspirin Low Dose] 81 mg tablet,delayed release (DR/EC) 81 mg PO DAILY Qty: 30 0RF Continued valsartan 80 mg Tablet 80 mg PO DAILY Qty: 0 0RF levothyroxine 88 MCG tablet Qty: 0 0RF citalopram 10 mg tablet See Rx Instructions .ROUTE .COMPLEX Qty: 30 3RF Dose Instruction: TAKE 1 TABLET BY MOUTH DAILY Rx Instructions: TAKE 1 TABLET BY MOUTH DAILY budesonide-formoterol [Symbicort] 80-4.5 mcg/actuation HFA aerosol inhaler 2 puff inhalation BID 0RF sotalol 80 mg tablet 80 mg PO BID 0RF Eliquis 5 mg tablet 5 mg PO BID 0RF atorvastatin 80 mg tablet 80 mg PO DAILY 0RF pantoprazole 40 mg tablet,delayed release (DR/EC) 40 mg PO BID 0RF Refresh Plus 0.5 % dropperette EYE-BOTH 0RF diclofenac sodium 1 % gel 2 g topical QID 0RF Rx Instructions: apply to single elbow, wrist or hand; for hand includes palm/fingers/back of hand lidocaine 5 % adhesive patch,medicated 1 patch TOP DAILY PRN (Reason: pain) Qty: 15 0RF Rx Instructions: leave on most painful area for up to 12 hrs tramadol 50 mg tablet 50 mg PO Q6H PRN (Reason: pain) Qty: 20 0RF Follow up/Referrals: Shea Rosas MD [Primary Care Provider] - Diet/Activity/Treatments Diet: Low-fat, Low-sodium and Low-cholesterol Activity: TOLERATED Discharge Data Primary Care Provider: Shea Rosas
[2021-10-20] MEDS: SOTALOL 80 MG TABLET PO (09:25)
[2021-10-20] MEDS: APIXABAN 5 MG TABLET PO (09:25)
[2021-10-20] MEDS: VALSARTAN 80 MG TABLET PO (09:25)
[2021-10-20] MEDS: ATORVASTATIN 20 MG TABLET 80 MG PO (09:25)
[2021-10-20] MEDS: CITALOPRAM 10 MG TABLET PO (09:25)
[2021-10-20 10:00] VITALS: BP 139/69; PULSE 61; RESP 18; TEMP 37.1; O2SAT 99
--- NOTE | 2021-10-20 12:16 | CM.DANOTE ---
DCP Brief Assessment Note Patient is a 71 yo female who was admitted on 10/19/21 for Poss Heart Attack. Pt has [employer] for insurance and her PCP is Shea Rosas. EMR was reviewed. Per MD, pt with hx of COPD, anxiety/depression, 12 yo pacemaker and [employer] following as outpt for possible need of new pacemaker placement and recommending stress test. Pt admitted for dyspnea and stress test ordered and possible Echo. Per RN, pt testing COVID+ but seems mostly asymptomatic and pt surprised she is testing positive as she has done a few home tests with results being negative. PCR test done and remains positive results. Pt on COVID precautions therefor SW did not meet bedside with pt and based on triage needs. Per MD, pt likely to d/c home today with no needs and outpt f/u with [employer] regarding pacemaker and cardiac needs and no identified barriers to discharge. Plan: SW to follow for plan of d/c home via son POV later today when medically stable and any further identified discharge planning needs. DEBI Mcnamara
[2021-10-20 13:05] VITALS: O2SAT 99
== END 2021-10-20 14:45 | disposition home or self-care (01) ==
LOC: ED 14:10 → AC 17:07
PROVIDERS: Admitting Provider Hospitalist; Emergency Provider Emergency Medicine; Family Provider Internal Medicine; PCP Internal Medicine; Referring Provider Emergency Medicine; Visit Provider Hospitalist
DX: U07.1 COVID-19 (principal); J44.9 Chronic obstructive pulmonary disease, unspecified; Z95.0 Presence of cardiac pacemaker; I48.91 Unspecified atrial fibrillation; Z79.01 Long term (current) use of anticoagulants; E66.9 Obesity, unspecified; Z68.34 Body mass index [BMI] 34.0-34.9, adult; E03.9 Hypothyroidism, unspecified; K21.9 Gastro-esophageal reflux disease without esophagitis
CPT/HCPCS: 36415; 71046; 80053; 81003; 81015; 82550; 83605; 83880; 84484; 85025; 85610; 85730; 87086; 87635; 93005; 93010; 94640; 94760; 96374; 99284; C9803; G0378; J1940

== ENCOUNTER → 2021-12-09 09:29 | Outpatient (CLI) | payer MEDICARE, OTHER, SELFPAY ==
[2021-10-19 17:19] VITALS: BMI 34.3
[2021-12-09 10:12] LABS: Add Manual Diff / Slide Review NO; Basophils Absolute Auto 0 /uL (0-100); Basophils Percent Auto 0.9 % (0-2); Eosinophils Absolute Auto 200 /uL (0-450); Eosinophils Percent Auto 3.2 % (2-4); Hematocrit 36.9 % (36-46); Hemoglobin 11.7 g/dL (12.0-16.0); Lymphocytes Absolute Auto 1300 /uL (1100-4500); Lymphocytes Percent Auto 24.9 % (25-40); Mean Corpuscular HGB Conc 31.8 % (30-36); Mean Corpuscular Volume 81.7 fL (80-100); Monocytes Absolute Auto 600 /uL (0-900); Monocytes Percent Auto 12.2 % (3-14); Neutrophils Absolute Auto 3100 /uL (1500-7000); Neutrophils Percent Auto 58.8 % (50-75); Platelet Count 232 X10^3/uL (150-400); Red Blood Cell Count 4.52 X10^6/uL (4.0-5.2); Red Cell Distribution Width 15.8 % (11.6-14.8); White Blood Cell Count 5.3 X10^3/uL (4.5-11.0)
[2021-12-09 10:47] LABS: BUN Creatinine Ratio 22.4 (6-22); Blood Urea Nitrogen 19 mg/dL (7-17); Calcium 8.7 mg/dL (8.4-10.2); Carbon Dioxide 27 mmol/L (22-32); Chloride 108 mmol/L (98-107); Estimated Glomerular Filt Rate > 60 mL/min (>60); Glucose 81 mg/dL (80-110); HEMOLYSIS < 15 (0-50); Potassium 4.9 mmol/L (3.4-5.1); Sodium 141 mmol/L (137-145)
[2021-12-09 10:53] LABS: NT-proBNP (BNP-Adult 18+) 628 pg/mL (<125)
== END ==
PROVIDERS: Family Provider Internal Medicine; PCP Internal Medicine; Referring Provider Internal Medicine Cardiovascular Disease; Visit Provider Internal Medicine Cardiovascular Disease
DX: R06.00 Dyspnea, unspecified (principal); I49.5 Sick sinus syndrome; I48.0 Paroxysmal atrial fibrillation
CPT/HCPCS: 36415; 80048; 83880; 85025

== ENCOUNTER → 2021-12-16 17:00 | Outpatient (CLI) | payer MEDICARE, OTHER, SELFPAY ==
[2021-10-19 17:19] VITALS: BMI 34.3
== END ==
PROVIDERS: Family Provider Internal Medicine; PCP Internal Medicine; Visit Provider Obstetrics & Gynecology
DX: R31.9 Hematuria, unspecified (principal)
CPT/HCPCS: 87086

== ENCOUNTER 2022-05-01 17:58 | Emergency (ER) | payer MEDICARE, OTHER, SELFPAY ==
[2021-10-19 17:19] VITALS: BMI 34.3
[2022-05-01] VITALS (9 sets, daily range): BP systolic 107–161; BP diastolic 54–86; PULSE 60–96; RESP 15–25; TEMP 36.4; O2SAT 97–100
--- NOTE | 2022-05-01 18:15 | ED.RECABL ---
HPI - Recheck/Abnormal Lab/Rx General Chief Complaint: Recheck/Abnormal Lab/Rx Stated Complaint: Urology problems, Low K Time Seen by Provider: 05/01/22 18:04 Source: patient Mode of arrival: Ambulatory History of Present Illness HPI narrative: 72F nonsmoker with history of COPD, hypertension, hyperlipidemia and recent urologic procedure presents at the request of her primary care provider for elevated potassium. She had kidney stones in the end of March and was seen and treated at [facility] with lithotripsy and reported subsequent stent. She had a follow-up appointment today and had been having some right flank pain and feeling generally weak with a poor appetite and reports that she has an elevated potassium and was instructed to present to the emergency department. She is not dizzy nor weak or lightheaded. She denies any chest pain, shortness of breath or cough. She is had no fever or chills. She denies nausea, vomiting or diarrhea. Related Data Home Medications Medication Instructions Recorded Confirmed levothyroxine 88 mcg tablet 88 mcg PO QAM ##0 02/06/12 05/01/22 valsartan 80 mg tablet 80 mg PO DAILY ##0 02/06/12 05/01/22 apixaban 5 mg tablet (Eliquis) 5 mg PO DAILY 04/05/21 05/01/22 carboxymethylcellulose sodium 0.5 2 drp EYE-BOTH BID PRN Dry Eyes 04/05/21 05/01/22 % eye drops in a dropperette (Refresh Plus) diclofenac sodium 1 % topical gel 2 g topical QID PRN Pain (Scale 04/05/21 05/01/22 Score 1-3) pantoprazole 40 mg tablet,delayed 40 mg PO BID 04/05/21 05/01/22 release sotalol 80 mg tablet 80 mg PO BID 04/05/21 05/01/22 fluticasone 100 mcg-salmeterol 50 1 inh inhalation BID 05/01/22 05/01/22 mcg/dose blistr powdr for inhalation (Advair Diskus) promethazine 25 mg tablet 25 mg PO TID PRN nausea/vomiting 05/01/22 05/01/22 sulfamethoxazole 800 1 tab PO BID 05/01/22 05/01/22 mg-trimethoprim 160 mg tablet Previous Rx's Medication Instructions Recorded lidocaine 5 % topical patch 1 patch topical DAILY PRN pain #15 11/02/19 ea Allergies Allergy/AdvReac Type Severity Reaction Status Date / Time codeine Allergy Intermediate Rash Verified 05/01/22 18:42 celecoxib [CELECOXIB] Allergy Unknown Verified 05/01/22 18:33 lactobacillus [LACTOBACILLUS] Allergy Unknown Verified 05/01/22 18:33 morphine [MORPHINE] Allergy Unknown Verified 05/01/22 18:33 oxycodone [OXYCODONE] Allergy Unknown Verified 05/01/22 18:33 Iodine and Iodide Containing Allergy Verified 05/01/22 18:33 Produc Review of Systems Review of Systems Narrative: GENERAL: See HPI HEENT: Denies sinus pain, ear pain, sore throat, difficulty swallowing, dizziness. RESPIRATORY: Denies dyspnea, cough, wheezing, hemoptysis, sputum. CARDIOVASCULAR: Denies chest pain, palpitations, orthopnea, edema, GASTROINTESTINAL: See HPI : See HPI MUSCULOSKELETAL: denies weakness, joint pain, or bony pain SKIN: Denies rash, skin lesions, or other NEUROLOGIC: Denies weakness, headache, numbness, change in speech, confusion, seizures, incoordination. PSYCHIATRIC: No concerning psychosocial issues. 12 point review of systems is negative except for those stated above Patient History Medical History Anxiety and depression (~1996) Chronic back pain (~2012) COPD (chronic obstructive pulmonary disease) (~2018) Endometrial hyperplasia GERD (gastroesophageal reflux disease) (~2009) Headache (~2018) Hypertension (~1995) Hypothyroidism Postmenopausal bleeding Sarcoidosis (~1978) Uterine mass Wears glasses Surgical History Anesthesia History of abdominoplasty (~2012) History of breast lift (~2012) History of carpal tunnel repair History of cataract removal with insertion of prosthetic lens (~2018) History of gastric bypass (~2009) History of knee replacement History of knee replacement Presence of cardiac pacemaker (~2009) Status post breast lumpectomy Status post cholecystectomy (~1979) Status post dilation and curettage Status post surgery (04/09/15) Family History Father Cancer Brother Cancer Brother History of heart disease Hypertension Stroke Sister Cancer Social History household members: friend(s) Smoking Status: Never smoker alcohol intake: never Smoking Status: Never smoker alcohol intake frequency: holidays/special occasions only Substance Use Type: does not use Exam Narrative Exam Narrative: GENERAL: [72] year old patient appears stated age. Well-developed patient, in mild distress. HEAD: Atraumatic. Normocephalic. EYES: Pupils equal round and reactive. Extraocular motions intact. No scleral icterus. No injection or drainage. ENT: Nose without bleeding, purulent drainage. Throat without erythema, tonsillar hypertrophy or exudate. Airway patent. NECK: Trachea midline. Non tender CARDIOVASCULAR: Regular rate and rhythm without murmurs, gallops, or rubs. RESPIRATORY: Clear to auscultation. Breath sounds equal bilaterally. No wheezes, rales, or rhonchi. GASTROINTESTINAL: Abdomen soft, non-tender, nondistended. EXTREMITIES: No edema or joint tenderness. BACK: Nontender without deformity or crepitance. Right flank tenderness NEURO: AOx3. SKIN: No rash or erythema of visible areas Initial Vital Signs Initial Vital Signs: Vital Signs Temperature 97.5 F L 05/01/22 18:07 Pulse Rate 96 H 05/01/22 18:07 Respiratory Rate 17 05/01/22 18:07 Blood Pressure 161/86 H 05/01/22 18:07 Pulse Oximetry 100 05/01/22 18:07 Oxygen Delivery Method 05/01/22 18:07 Course Orders Ordered: ED Orders 05/01/22 18:18 EKG-12 Lead Stat 05/01/22 18:25 BNP [NT-proBNP (BNP-Adult 18+)] Stat Comprehensive Metabolic Panel Stat Magnesium Stat Troponin & CK Cardiac Panel Stat 05/01/22 18:27 Complete Blood Count AUTO DIFF Stat 05/01/22 19:08 US renal complete Stat 05/01/22 19:17 Creatinine Urine Random Stat Sodium Urine Random Stat Urinalysis and Microscopic Stat Urine Culture Stat 05/01/22 21:00 CT kidney ureter bladder (KUB) Stat Discontinued Medications Sodium Chloride (Normal Saline 0.9%) 500 mls @ 1,000 mls/hr IV BOLUS ONE Stop: 05/01/22 19:30 Last Infusion: 05/01/22 21:44 Dose: 0 mls/hr Documented By: Admin: 05/01/22 20:45 Dose: 1,000 mls/hr Documented By: ESSIE Sodium Chloride (Normal Saline 0.9%) 500 mls @ 1,000 mls/hr IV BOLUS ONE Stop: 05/01/22 23:15 Last Admin: 05/01/22 22:50 Dose: 1,000 mls/hr Ondansetron HCl (Ondansetron 4 Mg/2 Ml Inj) 4 mg IV NOW ONE Stop: 05/01/22 18:51 Last Admin: 05/01/22 18:55 Dose: 4 mg Documented By: CANDACE Consultations Consultation #1: Discussed with on-call Urology at [facility], we have reviewed patient's history and physical including recent procedures as well as today's labs and imaging. Recommends patient stay on antibiotics, she is currently being treated for a mild urinary tract infection, complete fluids, abnormal findings on imaging are likely due to the passage of a small clot, no significant concern and can followed up as an outpatient with his group. Vital Signs Vital signs: Vital Signs - 8 hr 05/01/22 18:07 05/01/22 18:29 05/01/22 18:30 Temperature 97.5 F L Pulse Rate 96 H 73 73 Respiratory Rate 17 Blood Pressure 161/86 H Pulse Oximetry 100 98 98 Oxygen Delivery Method Room Air 05/01/22 18:32 05/01/22 18:32 05/01/22 19:00 Temperature Pulse Rate 74 Respiratory Rate 15 Blood Pressure 107/54 L 120/74 Pulse Oximetry 98 Oxygen Delivery Method 05/01/22 19:00 05/01/22 19:30 05/01/22 20:00 Temperature Pulse Rate 64 63 60 Respiratory Rate 25 H 18 Blood Pressure Pulse Oximetry 98 99 97 Oxygen Delivery Method 05/01/22 20:30 05/01/22 21:00 Temperature Pulse Rate 60 60 Respiratory Rate 24 Blood Pressure Pulse Oximetry 97 97 Oxygen Delivery Method MDM - Recheck/Abnormal Lab/Rx Lab Data Result diagrams: 05/01/22 18:27 05/01/22 18:25 Labs: Lab Results 05/01/22 05/01/22 05/01/22 Range/Units 18:25 18:27 19:17 WBC 7.5 (4.5-11.0) X10^3/uL RBC 4.27 (4.0-5.2) X10^6/uL Hgb 11.2 L (12.0-16.0) g/dL Hct 34.6 L (36-46) % MCV 81.0 (80-100) fL MCH 26.2 (26-34) PG MCHC 32.3 (30-36) % RDW 16.6 H (11.6-14.8) % Plt Count 318 (150-400) X10^3/uL Neut % (Auto) 61.1 (50-75) % Lymph % (Auto) 28.7 (25-40) % [place] % (Auto) 6.3 (3-14) % Eos % (Auto) 2.9 (2-4) % Baso % (Auto) 1.0 (0-2) % Neut # (Auto) 4600 (0570-5866) /uL Lymph # (Auto) 2200 (8332-6680) /uL [place] # (Auto) 500 (0-900) /uL Eos # (Auto) 200 (0-450) /uL Baso # (Auto) 100 (0-100) /uL Sodium 138 (137-145) mmol/L Potassium 4.6 (3.4-5.1) mmol/L Chloride 108 H (98-107) mmol/L Carbon Dioxide 20 L (22-32) mmol/L BUN 20 H (7-17) mg/dL Creatinine 1.33 H (0.52-1.04) mg/dL Estimated GFR 42 L (>60) mL/min BUN/Creatinine Ratio 15.0 (6-22) Glucose 123 H (80-110) mg/dL Calcium 9.4 (8.4-10.2) mg/dL Magnesium 2.1 (1.6-2.3) mg/dL Total Bilirubin 0.4 (0.2-1.3) mg/dL AST 18 (14-36) IU/L ALT 14 (<35) IU/L Alkaline Phosphatase 123 (38-126) U/L Total Creatine Kinase 30 (30-135) U/L CK-MB (CK-2) TNP CK-MB (CK-2) Rel Index TNP Troponin I < 0.012 (0.01-0.034) ng/mL NT-Pro-B Natriuret Pep 296 H (<125) pg/mL Total Protein 7.7 (6.3-8.2) g/dL Albumin 3.9 (3.5-5.0) g/dL Globulin 3.8 (1.7-4.1) g/dL Albumin/Globulin Ratio 1.0 (1.0-2.8) Urine Color Urine Appearance Urine pH (4.5-8.0) Ur Specific [place] (1.000-1.035) Urine Protein (Negative) Urine Glucose (UA) (Negative) g/dL Urine Ketones (NEGATIVE) Urine Occult Blood (Negative) Urine Nitrate (Negative) Urine Bilirubin (NEGATIVE) Urine Urobilinogen (0.2) E.U./dL Ur Leukocyte Esterase (NEGATIVE) Urine RBC (0-5/HPF) Urine WBC (0-5/HPF) Ur Squamous Epith Cells (0-5/HPF) Uric Acid Crystals (None) Urine Bacteria (None) Ur Culture Indicated? Ur Random Sodium 117 H (30-90) mmol/L Urine Creatinine 180.5 mg/dL 05/01/22 Range/Units 19:17 WBC (4.5-11.0) X10^3/uL RBC (4.0-5.2) X10^6/uL Hgb (12.0-16.0) g/dL Hct (36-46) % MCV (80-100) fL MCH (26-34) PG MCHC (30-36) % RDW (11.6-14.8) % Plt Count (150-400) X10^3/uL Neut % (Auto) (50-75) % Lymph % (Auto) (25-40) % [place] % (Auto) (3-14) % Eos % (Auto) (2-4) % Baso % (Auto) (0-2) % Neut # (Auto) (9305-5047) /uL Lymph # (Auto) (7002-0743) /uL [place] # (Auto) (0-900) /uL Eos # (Auto) (0-450) /uL Baso # (Auto) (0-100) /uL Sodium (137-145) mmol/L Potassium (3.4-5.1) mmol/L Chloride (98-107) mmol/L Carbon Dioxide (22-32) mmol/L BUN (7-17) mg/dL Creatinine (0.52-1.04) mg/dL Estimated GFR (>60) mL/min BUN/Creatinine Ratio (6-22) Glucose (80-110) mg/dL Calcium (8.4-10.2) mg/dL Magnesium (1.6-2.3) mg/dL Total Bilirubin (0.2-1.3) mg/dL AST (14-36) IU/L ALT (<35) IU/L Alkaline Phosphatase (38-126) U/L Total Creatine Kinase (30-135) U/L CK-MB (CK-2) CK-MB (CK-2) Rel Index Troponin I (0.01-0.034) ng/mL NT-Pro-B Natriuret Pep (<125) pg/mL Total Protein (6.3-8.2) g/dL Albumin (3.5-5.0) g/dL Globulin (1.7-4.1) g/dL Albumin/Globulin Ratio (1.0-2.8) Urine Color Yellow Urine Appearance Clear Urine pH 5.0 (4.5-8.0) Ur Specific [place] 1.025 (1.000-1.035) Urine Protein Trace H (Negative) Urine Glucose (UA) Negative (Negative) g/dL Urine Ketones Negative (NEGATIVE) Urine Occult Blood Trace-lysed (Negative) Urine Nitrate Negative (Negative) Urine Bilirubin Negative (NEGATIVE) Urine Urobilinogen 0.2 (0.2) E.U./dL Ur Leukocyte Esterase 2+ H (NEGATIVE) Urine RBC 1-5/hpf D (0-5/HPF) Urine WBC 30-100/hpf H (0-5/HPF) Ur Squamous Epith Cells 1-5 /hpf (0-5/HPF) Uric Acid Crystals Moderate H (None) Urine Bacteria Few (2-10) H (None) Ur Culture Indicated? Specimen cultured Ur Random Sodium (30-90) mmol/L Urine Creatinine mg/dL Imaging Data CT scan - abdomen/pelvis: Radiologist's Impression: [place]72[place]F??1950 ? Allergy/Adv: codeine, celecoxib, lactobacillus, morphine, oxycodone, Iodine and Iodide Containing Produc (More??) Close Abdomen/Pelvis CT (Signed) Gustavo Francis - 05/01/22 Renal Ultrasound (Signed) Gelacio Mendoza - 05/01/22 Telemetry Strips 10/19/21 EKG Rpt. 10/19/21 Chest X-Ray (Signed) Nivia Yanez - 10/19/21 Telemetry Strips 04/19/21 Abdomen Ultrasound (Signed) Edy Van - 03/16/[address] (Signed) RanjithBeto lennon - 11/15/20 Chest X-Ray (Signed) Gelacio Mendoza - 11/15/20 EKG Rpt. 11/15/[address] (Signed) Call,Kar - 05/26/20 Hip X-Ray (Signed) Call,Kar - 05/26/20 Lumbar Spine X-Ray (Signed) Beto Kasper - 11/02/19 Launch?[address] [address] [address] Scan Report Signed Patient: Deneen Gong MR#: [id number] : 1950 Acct:[id number] Age/Sex: 72 / F Date of Service: 05/01/22 Loc: ED Accession Number: [id number] ?? Procedure: CT kidney ureter bladder (KUB) Ordering Provider: Baldo Hussein D.O. PROCEDURE:? CT KIDNEY URETER BLADDER (KUB) ? INDICATIONS:? flank pain, UTI, recent lithotripsy, stents ? TECHNIQUE:? Axial sections were acquired from the lung bases to the pubic symphysis.? Coronal and sagittal reformats were performed.? For radiation dose reduction, the following was used: ?automated exposure control, adjustment of mA and/or kV according to patient size.? ? COMPARISON:? [facility], CT, PE STUDY (CTA CHEST), 09/18/2017, 23:07.? Outside Film, CT, CT CHEST WITHOUT CONTRAST, 11/02/2016, 12:16.? [facility], US, US RENAL COMPLETE, 05/01/2022, 19:18.? CT, CT PEL WO CON, 05/26/2020, 19:02. ? FINDINGS:? Image quality:? Excellent.? ? Lung bases:? Within the left lower lobe, there is a 0.3 cm pulmonary nodule on series 3, image 10 which appears similar to minimally increased in size compared to the 11/02/2016 study.? In the right lower lobe, there is a 0.3 cm nodule on series 3, image 8 which appears stable compared to the 2017 study.? Minimal atelectasis and scarring are demonstrated bilaterally. Heart:? Heart is normal in size.? There are pacemaker leads extending into the right atrium and right ventricle.? There is a small hiatal hernia.? ? URINARY: Right Kidney and Ureter: ? No discrete stones or hydronephrosis.? No hydroureter. ? Left Kidney and Ureter: ? There is moderate left hydronephrosis and mild hydroureter extending to the mid left ureter.? No obstructing calcified ureteral stone identified.? There is suggestion of a soft tissue filling defect or wall thickening in the mid left ureter at the level of the transition.? The ureter is nondistended distal to this level.? There are a few additional clustered dependent nonobstructing urinary stones within the left kidney.? There is mild perinephric stranding. ? Bladder:? Normal wall thickness. No stones. ? ? ? ABDOMEN: Liver:? Noncontrast evaluation of the liver demonstrates no discrete? mass. Gallbladder:? Within normal limits without calcified gallstones.? ? Biliary ducts:? No biliary ductal dilatation.? ? Pancreas:? Unremarkable.? ? Spleen:? Normal in size.? ? Adrenal Glands:? No adrenal nodules.? ? ? Stomach and Bowel:? Stomach, small bowel loops, and colon are normal in caliber and wall thickness.? Postsurgical changes are demonstrated consistent with prior gastric bypass.? The appendix is normal in appearance.? Peritoneum:? No abnormal intraperitoneal fluid.? No free air.? ? Ventral Wall: ? No hernia.? Abdominal Nodes:? No retroperitoneal or mesenteric adenopathy by size criteria.? Vessels:? Aorta and inferior vena cava are normal in size.? ? PELVIS: Pelvic Organs:? Unremarkable.? ? Pelvic Nodes: No enlarged lymph nodes.? Miscellaneous: No inguinal hernias identified. ? ? ? Bones:? Visualized osseous structures demonstrate no suspicious focal lesions. IMPRESSION:? ? 1. Moderate left hydronephrosis and mild left hydroureter extending to the mid ureter where there is suggestion of a soft tissue filling defect or ureteral wall thickening.? Given patient's history of iodine allergy, consider follow-up evaluation with an MR urogram.? No calcified obstructing ureteral stone. ? 2. Multiple small clustered nonobstructing left renal stones.? ? Dictated by: Gustavo Francis M.D. on 05/01/2022 at 21:44 ? ? Approved by: Gustavo Francis M.D. on 05/01/2022 at 22:02 ? Renal US: Radiologist's Impression: [address] [address] Ultrasound Report Signed Patient: Deneen Gong MR#: [id number] : 1950 Acct:[id number] Age/Sex: 72 / F Accession Number: [id number] ?? Procedure: US renal complete Ordering Provider: Baldo Hussein D.O. PROCEDURE:? US RENAL COMPLETE ? INDICATIONS:? RIGHT FLANK PAIN ? TECHNIQUE:? Real-time scanning was performed of the kidneys and bladder, with image documentation.? ? COMPARISON:? None. ? FINDINGS:? ? Kidneys:? Kidneys are normal in size.? Right kidney measures 9.6 cm long; left kidney measures 10.5 cm long.? Right renal cortical thickness is 1.4 cm; left renal cortical thickness is 1.4 cm.? Renal cortical echotexture is normal.? There is a 8 millimeter stone in the inferior pole of the right kidney which appears nonobstructing and a 10 millimeter stone in the inferior collecting system of the left kidney which appears nonobstructing.? No hydronephrosis of the right kidney.? The left kidney demonstrates moderate to severe hydronephrosis.? No suspicious solid mass lesions.? ? Bladder:? The bladder was not distended. ? Miscellaneous:? No free pelvic fluid.? ? IMPRESSION:? 1. Moderate to severe left hydronephrosis. 2. 10 millimeter left inferior pole stone is nonobstructing. 3. 8 millimeter right inferior pole stone is nonobstructing.? ? ? Dictated by: Gelacio Mendoza M.D. on 05/01/2022 at 19:42 ? ? Approved by: Gelacio Mendoza M.D. on 05/01/2022 at 19:45 ? MDM Narrative Medical decision making narrative: Patient with reassuring history and physical exam. She was sent for critically abnormal labs including a reported potassium well over 6, however on our recheck she is within normal range. She is already being treated for urinary tract infection with Bactrim. Her labs otherwise suggest a slight bump in her creatinine, FeNa would suggest prerenal. Imaging essentially unremarkable, discussed hydroureteronephrosis and possible soft tissue abnormality in left ureter with Urology who suggests no critical finding, and encouraged close follow-up. Return precautions discussed and questions answered to their apparent satisfaction Discharge Plan Departure Patient Disposition: Home Clinical Impression: Acute UTI, Hydronephrosis Instructions: DI for Urinary Tract Infection (UTI) Activity Restrictions/Additional Instructions: *You have been diagnosed with [urine infection and moderate swelling of ureter. As we discussed your potassium was in the normal range. Your other labs and imaging very reassuring and there is no indication for any other specific or immediate intervention.] *What to do: *Please continue to take your regular medications as directed. [ ] New medication prescriptions sent to your pharmacy: [ ] [ ] New medication written as a paper prescription [ ] No new medications given *Please follow up with your primary urologist call tomorrow for an appointment. Let them know you were seen in the Emergency Department and that we ask that you be seen in follow up. *Return to Emergency Department if you should have any new, worsening or concerning symptoms, such as [fever greater than 101 F, shaking chills, worsening pain, persistent vomiting or other bothersome symptoms] Prescriptions: No Action valsartan 80 mg Tablet 80 mg PO DAILY Qty: 0 levothyroxine 88 MCG tablet 88 mcg PO QAM Qty: 0 sotalol 80 mg tablet 80 mg PO BID Eliquis 5 mg tablet 5 mg PO DAILY pantoprazole 40 mg tablet,delayed release (DR/EC) 40 mg PO BID Refresh Plus 0.5 % dropperette 2 drp EYE-BOTH BID PRN (Reason: Dry Eyes) diclofenac sodium 1 % gel 2 g topical QID PRN (Reason: Pain (Scale Score 1-3)) Rx Instructions: apply to single elbow, wrist or hand; for hand includes palm/fingers/back of hand lidocaine 5 % adhesive patch,medicated 1 patch TOP DAILY PRN (Reason: pain) Qty: 15 0RF Rx Instructions: leave on most painful area for up to 12 hrs promethazine 25 mg Tablet 25 mg PO TID PRN (Reason: nausea/vomiting) fluticasone propion-salmeterol [Advair Diskus] 100-50 mcg/dose blister with device 1 inh INHALATION BID sulfamethoxazole-trimethoprim 800-160 mg tablet 1 tab PO BID Rx Instructions: started 04/25 x 14 days Referrals: Shea Rosas MD [Primary Care Provider] -
[2022-05-01 18:38] LABS: Add Manual Diff / Slide Review NO; Basophils Absolute Auto 100 /uL (0-100); Eosinophils Absolute Auto 200 /uL (0-450); Eosinophils Percent Auto 2.9 % (2-4); Hematocrit 34.6 % (36-46); Hemoglobin 11.2 g/dL (12.0-16.0); Lymphocytes Absolute Auto 2200 /uL (1100-4500); Lymphocytes Percent Auto 28.7 % (25-40); Mean Corpuscular HGB Conc 32.3 % (30-36); Mean Corpuscular Hemoglobin 26.2 PG (26-34); Monocytes Absolute Auto 500 /uL (0-900); Monocytes Percent Auto 6.3 % (3-14); Neutrophils Absolute Auto 4600 /uL (1500-7000); Neutrophils Percent Auto 61.1 % (50-75); Platelet Count 318 X10^3/uL (150-400); Red Blood Cell Count 4.27 X10^6/uL (4.0-5.2); Red Cell Distribution Width 16.6 % (11.6-14.8); White Blood Cell Count 7.5 X10^3/uL (4.5-11.0)
[2022-05-01 18:49] LABS: Alanine Aminotransferase 14 IU/L (<35); Albumin 3.9 g/dL (3.5-5.0); Alkaline Phosphatase 123 U/L (38-126); Aspartate Aminotransferase 18 IU/L (14-36); Bilirubin Total 0.4 mg/dL (0.2-1.3); Blood Urea Nitrogen 20 mg/dL (7-17); Calcium 9.4 mg/dL (8.4-10.2); Carbon Dioxide 20 mmol/L (22-32); Chloride 108 mmol/L (98-107); Creatine Kinase 30 U/L (30-135); Estimated Glomerular Filt Rate 42 mL/min (>60); Globulin 3.8 g/dL (1.7-4.1); Glucose 123 mg/dL (80-110); HEMOLYSIS 33 (0-50); Magnesium 2.1 mg/dL (1.6-2.3); Potassium 4.6 mmol/L (3.4-5.1); Sodium 138 mmol/L (137-145); Total Protein 7.7 g/dL (6.3-8.2)
[2022-05-01] MEDS: ONDANSETRON 4 MG/2 ML INJ IV (18:55)
[2022-05-01 19:00] LABS: NT-proBNP (BNP-Adult 18+) 296 pg/mL (<125); Troponin I < 0.012 ng/mL (0.01-0.034)
--- NOTE | 2022-05-01 19:05 | PC.NURSE ---
Report received - assumed care of pt at this time
--- NOTE | 2022-05-01 19:08 | DI.US.S_ITS ---
PROCEDURE: US RENAL COMPLETE INDICATIONS: RIGHT FLANK PAIN TECHNIQUE: Real-time scanning was performed of the kidneys and bladder, with image documentation. COMPARISON: None. FINDINGS: Kidneys: Kidneys are normal in size. Right kidney measures 9.6 cm long; left kidney measures 10.5 cm long. Right renal cortical thickness is 1.4 cm; left renal cortical thickness is 1.4 cm. Renal cortical echotexture is normal. There is a 8 millimeter stone in the inferior pole of the right kidney which appears nonobstructing and a 10 millimeter stone in the inferior collecting system of the left kidney which appears nonobstructing. No hydronephrosis of the right kidney. The left kidney demonstrates moderate to severe hydronephrosis. No suspicious solid mass lesions. Bladder: The bladder was not distended. Miscellaneous: No free pelvic fluid. IMPRESSION: 1. Moderate to severe left hydronephrosis. 2. 10 millimeter left inferior pole stone is nonobstructing. 3. 8 millimeter right inferior pole stone is nonobstructing. Dictated by: Gelacio Mendoza M.D. on 05/01/2022 at 19:42 Approved by: Gelacio Mendoza M.D. on 05/01/2022 at 19:45
--- NOTE | 2022-05-01 19:10 | PC.NURSE ---
Ambulatory to bathroom with steady gait - clean catch UA collected - cloudy yellow urine noted - labelled and sent to lab
[2022-05-01 19:40] LABS: Appearance Urine UA CLEAR; Bilirubin Urine UA NEGATIVE (NEGATIVE); Color Urine UA YELLOW; Glucose Urine UA NEGATIVE (Negative); Ketones Urine UA NEGATIVE (NEGATIVE); Leukocyte Esterase Urine UA 2+ (NEGATIVE); Nitrite Urine UA NEGATIVE (Negative); Occult Blood Urine UA TRACE-LYSED (Negative); Protein Urine UA TRACE (Negative); Specific Gravity Urine UA 1.025 (1.000-1.035); Urobilinogen Urine UA 0.2 E.U./dL (0.2)
--- NOTE | 2022-05-01 20:00 | PC.NURSE ---
Resting quietly in NAD - no needs voiced - family at bedside
[2022-05-01 20:04] LABS: Bacteria Urine Few (2-10); Culture Indicated Urine Specimen Cultured; RBC Urine 1-5/HPF (0-5/HPF); Squamous Epithelial Cell Urine 1-5 /HPF (0-5/HPF); Uric Acid Crystals Urine Moderate; WBC Urine 30-100/HPF (0-5/HPF)
[2022-05-01 20:41] LABS: Creatinine Urine Random 180.5 mg/dL; Sodium Urine Random 117 mmol/L (30-90)
[2022-05-01] MEDS: SODIUM CHLORIDE 0.9% 500 ML 1000 ML IV ×2 (20:45→22:50)
--- NOTE | 2022-05-01 21:00 | PC.NURSE ---
CT performed at this time
--- NOTE | 2022-05-01 21:00 | DI.CT.S_ITS ---
PROCEDURE: CT KIDNEY URETER BLADDER (KUB) INDICATIONS: flank pain, UTI, recent lithotripsy, stents TECHNIQUE: Axial sections were acquired from the lung bases to the pubic symphysis. Coronal and sagittal reformats were performed. For radiation dose reduction, the following was used: automated exposure control, adjustment of mA and/or kV according to patient size. COMPARISON: [facility], CT, PE STUDY (CTA CHEST), 09/18/2017, 23:07. Outside Film, CT, CT CHEST WITHOUT CONTRAST, 11/02/2016, 12:16. [facility], US, US RENAL COMPLETE, 05/01/2022, 19:18. CT, CT PEL WO CON, 05/26/2020, 19:02. FINDINGS: Image quality: Excellent. Lung bases: Within the left lower lobe, there is a 0.3 cm pulmonary nodule on series 3, image 10 which appears similar to minimally increased in size compared to the 11/02/2016 study. In the right lower lobe, there is a 0.3 cm nodule on series 3, image 8 which appears stable compared to the 2017 study. Minimal atelectasis and scarring are demonstrated bilaterally. Heart: Heart is normal in size. There are pacemaker leads extending into the right atrium and right ventricle. There is a small hiatal hernia. URINARY: Right Kidney and Ureter: No discrete stones or hydronephrosis. No hydroureter. Left Kidney and Ureter: There is moderate left hydronephrosis and mild hydroureter extending to the mid left ureter. No obstructing calcified ureteral stone identified. There is suggestion of a soft tissue filling defect or wall thickening in the mid left ureter at the level of the transition. The ureter is nondistended distal to this level. There are a few additional clustered dependent nonobstructing urinary stones within the left kidney. There is mild perinephric stranding. Bladder: Normal wall thickness. No stones. ABDOMEN: Liver: Noncontrast evaluation of the liver demonstrates no discrete mass. Gallbladder: Within normal limits without calcified gallstones. Biliary ducts: No biliary ductal dilatation. Pancreas: Unremarkable. Spleen: Normal in size. Adrenal Glands: No adrenal nodules. Stomach and Bowel: Stomach, small bowel loops, and colon are normal in caliber and wall thickness. Postsurgical changes are demonstrated consistent with prior gastric bypass. The appendix is normal in appearance. Peritoneum: No abnormal intraperitoneal fluid. No free air. Ventral Wall: No hernia. Abdominal Nodes: No retroperitoneal or mesenteric adenopathy by size criteria. Vessels: Aorta and inferior vena cava are normal in size. PELVIS: Pelvic Organs: Unremarkable. Pelvic Nodes: No enlarged lymph nodes. Miscellaneous: No inguinal hernias identified. Bones: Visualized osseous structures demonstrate no suspicious focal lesions. IMPRESSION: 1. Moderate left hydronephrosis and mild left hydroureter extending to the mid ureter where there is suggestion of a soft tissue filling defect or ureteral wall thickening. Given patient's history of iodine allergy, consider follow-up evaluation with an MR urogram. No calcified obstructing ureteral stone. 2. Multiple small clustered nonobstructing left renal stones. Dictated by: Gustavo Francis M.D. on 05/01/2022 at 21:44 Approved by: Gustavo Francis M.D. on 05/01/2022 at 22:02
--- NOTE | 2022-05-01 22:00 | PC.NURSE ---
Warm blankets given for comfort - pt states that she is so cold - resting quietly in NAD - respirations equal and unlabored bilaterally - no c/o pain - family at bedside
--- NOTE | 2022-05-01 23:00 | PC.NURSE ---
No changes in pt status - MD to bedside
== END 2022-05-01 23:30 | disposition home or self-care (01) ==
PROVIDERS: Emergency Provider Emergency Medicine; Family Provider Internal Medicine; PCP Internal Medicine
DX: N39.0 Urinary tract infection, site not specified (principal); N13.30 Unspecified hydronephrosis; R10.9 Unspecified abdominal pain
CPT/HCPCS: 36415; 74176; 76770; 80053; 81001; 82550; 82570; 83735; 83880; 84300; 84484; 85025; 87077; 87086; 87147; 87186; 93005; 96361; 96374; 99284; J2405

== ENCOUNTER 2022-07-06 17:17 | Emergency (ER) | payer MEDICARE, OTHER, SELFPAY ==
[2021-10-19 17:19] VITALS: BMI 34.3
[2022-07-06 17:25] VITALS: BP 132/61; PULSE 78; RESP 16; TEMP 37.4; O2SAT 98; BMI 33.3
[2022-07-06 17:42] VITALS: PULSE 71; RESP 27; O2SAT 98
[2022-07-06 18:00] VITALS: BP 109/55; PULSE 72; RESP 23; O2SAT 98
[2022-07-06 18:06] LABS: Add Manual Diff / Slide Review NO; Basophils Absolute Auto 100 /uL (0-100); Basophils Percent Auto 0.4 % (0-2); Eosinophils Absolute Auto 0 /uL (0-450); Eosinophils Percent Auto 0.2 % (2-4); Hematocrit 35.1 % (36-46); Hemoglobin 11.3 g/dL (12.0-16.0); Lymphocytes Absolute Auto 800 /uL (1100-4500); Lymphocytes Percent Auto 5.9 % (25-40); Monocytes Absolute Auto 700 /uL (0-900); Monocytes Percent Auto 5.6 % (3-14); Neutrophils Absolute Auto 11700 /uL (1500-7000); Neutrophils Percent Auto 87.9 % (50-75); Platelet Count 229 X10^3/uL (150-400); Red Blood Cell Count 4.34 X10^6/uL (4.0-5.2); Red Cell Distribution Width 16.4 % (11.6-14.8); White Blood Cell Count 13.3 X10^3/uL (4.5-11.0)
--- NOTE | 2022-07-06 18:10 | DI.CT.S_ITS ---
PROCEDURE: CT KIDNEY URETER BLADDER (KUB) INDICATIONS: left flank pain, hx nephrolithiasis w/stent x2 TECHNIQUE: Axial sections were acquired from the lung bases to the pubic symphysis. Coronal and sagittal reformats were performed. For radiation dose reduction, the following was used: automated exposure control, adjustment of mA and/or kV according to patient size. COMPARISON: [facility], CT, CT KIDNEY URETER BLADDER (KUB), 05/01/2022, 21:04. FINDINGS: Image quality: Excellent. Lung bases: No consolidations or effusions. Small hiatal hernia. Heart: Enlarged heart with dual lead pacemaker leads. No pericardial effusion. URINARY: Right Kidney: No stones or hydronephrosis. Right Ureter: No stones or hydroureter. Left Kidney: Moderate hydronephrosis and moderate to marked perinephric inflammation with thickening of Gertoa's fascia. There is a small upper pole cortical cyst. Retained nonobstructing intrarenal calculi are present in the lower pole calices, the largest measuring about 7 mm with Hounsfield units of 317. Left Ureter: There is a moderate hydroureter of the proximal portion. There is tapering and decompression of the mid to distal ureter without of visible obstructing calcification. Bladder: Urinary bladder is completely decompressed. No visible stones. ABDOMEN: Liver: Normal unenhanced appearance. Gallbladder: Surgically absent. Biliary ducts: Mildly prominent post cholecystectomy. Pancreas: Normal. Spleen: Normal size. Adrenal Glands: No nodules. Stomach and Bowel: Surgical changes of gastric bypass. Small bowel loops, appendix, and colon are within normal limits. Peritoneum: No abnormal intraperitoneal fluid. No free air. Ventral Wall: There are surgical changes along the anterior abdominal wall and atrophy of the right rectus muscle. No new hernia or fluid collection. Abdominal Nodes: There are several prominent left retroperitoneal/pararenal lymph nodes. Vessels: Aorta and inferior vena cava are normal in size. PELVIS: Pelvic Organs: Surgically absent uterus. Ovarian tissue is not seen. Pelvic Nodes: Unremarkable. Miscellaneous: No inguinal hernias are seen. Bones: Severe facet arthropathy in the low lumbar spine. Disc degeneration L3-4. IMPRESSION: 1. There are changes of acute moderate left-sided urinary obstruction with a transition point in the mid ureter. No calcification is seen at this point. This may be secondary to soft tissue, clot, superimposed on stricture or acute inflammation. Neoplasm is not excluded. The appearance is similar, but slightly more severe compared to the prior study. 2. There are nonobstructing left intrarenal calculi in the lower pole, similar compared to the prior study. 3. There are reactive lymph nodes in the left pararenal region suggesting an inflammatory etiology. These are more prominent compared to prior. Dictated by: Kasandra Jorge M.D. on 07/06/2022 at 18:31 Approved by: Kasandra Jorge M.D. on 07/06/2022 at 18:40
[2022-07-06 18:18] LABS: INR 1.2 (0.9-1.3); Prothrombin Time 13.7 SECONDS (10.1-12.7)
[2022-07-06 18:21] LABS: PTT Partial Thromboplastin Tim 28 SECONDS (26-36)
[2022-07-06 18:23] LABS: Alanine Aminotransferase 16 IU/L (<35); Albumin 3.7 g/dL (3.5-5.0); Albumin Globulin Ratio 1.1 (1.0-2.8); Alkaline Phosphatase 129 U/L (38-126); Aspartate Aminotransferase 17 IU/L (14-36); BUN Creatinine Ratio 23.7 (6-22); Bilirubin Total 1.4 mg/dL (0.2-1.3); Blood Urea Nitrogen 28 mg/dL (7-17); Calcium 8.5 mg/dL (8.4-10.2); Carbon Dioxide 19 mmol/L (22-32); Chloride 106 mmol/L (98-107); Estimated Glomerular Filt Rate 49 mL/min (>60); Globulin 3.5 g/dL (1.7-4.1); Glucose 160 mg/dL (80-110); HEMOLYSIS < 15 (0-50); Lipase 73 U/L (23-300); Potassium 3.9 mmol/L (3.4-5.1); Sodium 137 mmol/L (137-145); Total Protein 7.2 g/dL (6.3-8.2)
[2022-07-06 18:24] LABS: Lactate (Lactic Acid) 1.7 mmol/L (0.7-2.1)
[2022-07-06 18:30] VITALS: PULSE 71; RESP 21; O2SAT 96
[2022-07-06 18:40] LABS: Procalcitonin 0.25 ng/mL (<0.5)
[2022-07-06] MEDS: ACETAMINOPHEN 325 MG TABLET 650 MG PO (18:47)
[2022-07-06] MEDS: HYDROMORPHONE 2 MG TABLET 1 MG PO (18:48)
--- NOTE | 2022-07-06 18:48 | ED_ITS ---
HPI - Female Genitourinary <Sinhdu Rodríguez, [facility] - Last Filed: 07/06/22 19:32> General Chief complaint: Urogenital-Female Stated complaint: sent by MD Time Seen by Provider: 07/06/22 17:27 Source: patient Mode of arrival: Ambulatory History of Present Illness HPI Narrative: A 72-year-old female presents to the emergency department after being recommended to go to the emergency department by her primary care provider at the [facility] who said that she has a bloodstream infection needs to go to the emergency department. Patient has a history of kidney stones, has had stent placement to her left kidney for stones in the past x2, history of lithotripsy a few months ago followed by stent placement. Patient denies recent fever, chills, nausea vomiting, states that she just had left-sided flank pain occasion ally today, has had pain with urination. Denies history of blood cultures or blood work or any other testing for her symptoms. [facility] [place] but states that there were no other treatments to pursue and she does not wish to go back to [place]. She does not currently have a urologist otherwise. Patient states that she had exacerbation of her pain today while she was on a ladder, doing some work at home. States that her mobility exacerbates her pain and she does have history of low back pain. She denies nausea, vomiting, fever chills, denies recent illness but states that she is been mildly dizzy, complains of cough, congestion and upper respiratory symptoms for the last week. Is on doxycycline for sinusitis as prescribed by her [place] provider as of 3 days ago. Patient's past medical history includes significance for sarcoid and atrial fibrillation and is anticoagulated on apixaban. Related Data Home Medications Medication Instructions Recorded Confirmed levothyroxine 88 mcg tablet 88 mcg PO QA ##0 02/06/12 05/01/22 valsartan 80 mg tablet 80 mg PO DAILY ##0 02/06/12 05/01/22 apixaban 5 mg tablet (Eliquis) 5 mg PO DAILY 04/05/21 05/01/22 carboxymethylcellulose sodium 0.5 2 drp EYE-BOTH BID PRN Dry Eyes 04/05/21 05/01/22 % eye drops in a dropperette (Refresh Plus) diclofenac sodium 1 % topical gel 2 g topical QID PRN Pain (Scale 04/05/21 05/01/22 Score 1-3) pantoprazole 40 mg tablet,delayed 40 mg PO BID 04/05/21 05/01/22 release sotalol 80 mg tablet 80 mg PO BID 04/05/21 05/01/22 fluticasone 100 mcg-salmeterol 50 1 inh inhalation BID 05/01/22 05/01/22 mcg/dose blistr powdr for inhalation (Advair Diskus) promethazine 25 mg tablet 25 mg PO TID PRN nausea/vomiting 05/01/22 05/01/22 sulfamethoxazole 800 1 tab PO BID 05/01/22 05/01/22 mg-trimethoprim 160 mg tablet Previous Rx's Medication Instructions Recorded lidocaine 5 % topical patch 1 patch topical DAILY PRN pain #15 11/02/19 ea hydromorphone 2 mg tablet 1 mg PO Q8H PRN pain #7 tabs 07/06/22 ondansetron 4 mg disintegrating 4 mg PO Q8H PRN nausea and 07/06/22 tablet vomiting #10 tabs phenazopyridine 200 mg tablet 200 mg PO QPC bladder pain 6 doses 07/06/22 (Pyridium) #7 tabs polyethylene glycol 3350 17 17 g PO DAILY #119 grams 07/06/22 gram/dose oral powder (Miralax) tamsulosin 0.4 mg capsule 0.4 mg PO BEDTIME PRN ureteral 07/06/22 obstruction #14 caps fluconazole 200 mg tablet 200 mg PO DAILY #14 tabs 07/11/22 (Diflucan) Allergies Allergy/AdvReac Type Severity Reaction Status Date / Time codeine Allergy Intermediate Rash Verified 07/06/22 17:30 celecoxib [CELECOXIB] Allergy Unknown Verified 07/06/22 17:30 lactobacillus [LACTOBACILLUS] Allergy Unknown Verified 07/06/22 17:30 morphine [MORPHINE] Allergy Unknown Verified 07/06/22 17:30 oxycodone [OXYCODONE] Allergy Unknown Verified 07/06/22 17:30 Iodine and Iodide Containing Allergy Verified 07/06/22 17:30 Produc Review of Systems <BIN Nash - Last Filed: 07/06/22 19:32> Review of Systems ROS Unobtainable: All systems reviewed & are unremarkable except as noted in HPI and below Patient History <BIN Nash - Last Filed: 07/06/22 19:32> Medical History Anxiety and depression (~1996) Chronic back pain (~2012) COPD (chronic obstructive pulmonary disease) (~2018) Endometrial hyperplasia GERD (gastroesophageal reflux disease) (~2009) Headache (~2018) Hypertension (~1995) Hypothyroidism Postmenopausal bleeding Sarcoidosis (~1978) Uterine mass Wears glasses Surgical History Anesthesia History of abdominoplasty (~2012) History of breast lift (~2012) History of carpal tunnel repair History of cataract removal with insertion of prosthetic lens (~2018) History of gastric bypass (~2009) History of knee replacement History of knee replacement Presence of cardiac pacemaker (~2009) Status post breast lumpectomy Status post cholecystectomy (~1979) Status post dilation and curettage Status post surgery (04/09/15) Family History Father Cancer Brother Cancer Brother History of heart disease Hypertension Stroke Sister Cancer alcohol intake frequency: holidays/special occasions only Substance Use Type: does not use Exam <BIN Nash - Last Filed: 07/06/22 19:32> Narrative Exam Narrative: Reviewed vitals signs and nursing notes. General: cooperative, comfortable, complains mild distress due to left flank pain acute distress, well groomed HEENT: symmetrical facial expressions, moist mucous membranes Cardiovascular: Irregular rate and irregular rhythm, no peripheral edema, warm extremities Respiratory: normal effort, able to speak in complete sentences, without wheezing, stridor, or abnormal breath sounds. No retractions or tachypnea. GI: abdomen soft, nontender to palpation, nondistended, without masses, rebound tenderness or exquisite tenderness with exam. Left-sided flank pain to palpation, no tenderness to palpation on the right. MSK: moves all extremities, neurovascularly intact, no weakness, normal tone Skin: brisk capillary refill, without pallor or erythema Neuro: normal speech and cognition, A&O x3, ambulatory, clear speech Psych: mental status is grossly normal, congruent mood, normal affect, pleasant and cooperative Initial Vital Signs Initial Vital Signs: Vital Signs Temperature 99.3 F 07/06/22 17:25 Pulse Rate 78 07/06/22 17:25 Respiratory Rate 16 07/06/22 17:25 Blood Pressure 132/61 07/06/22 17:25 Pulse Oximetry 98 07/06/22 17:25 Oxygen Delivery Method 07/06/22 17:25 <Baldo Hussein DO - Last Filed: 07/11/22 19:55> Initial Vital Signs Initial Vital Signs: Vital Signs Temperature 99.3 F 07/06/22 17:25 Pulse Rate 78 07/06/22 17:25 Respiratory Rate 16 07/06/22 17:25 Blood Pressure 132/61 07/06/22 17:25 Pulse Oximetry 98 07/06/22 17:25 Oxygen Delivery Method 07/06/22 17:25 <Shira Santoro DO - Last Filed: 07/14/22 07:51> Initial Vital Signs Initial Vital Signs: Vital Signs Temperature 99.3 F 07/06/22 17:25 Pulse Rate 78 07/06/22 17:25 Respiratory Rate 16 07/06/22 17:25 Blood Pressure 132/61 07/06/22 17:25 Pulse Oximetry 98 07/06/22 17:25 Oxygen Delivery Method 07/06/22 17:25 Course <BIN Nash - Last Filed: 07/06/22 19:32> Orders Ordered: Discontinued Medications Acetaminophen (Acetaminophen 325 Mg Tablet) 650 mg PO NOW ONE Stop: 07/06/22 18:18 Last Admin: 07/06/22 18:47 Dose: 650 mg Documented By: RENEE Cefuroxime Axetil (Cefuroxime 250 Mg Tablet) 500 mg PO NOW ONE Stop: 07/06/22 18:51 Last Admin: 07/06/22 19:18 Dose: 500 mg Documented By: CHADD Hydromorphone HCl (Hydromorphone 0.5 Mg Inj) 0.5 mg IV NOW ONE Stop: 07/06/22 18:12 Last Admin: 07/06/22 19:03 Dose: Not Given Documented By: NR Hydromorphone HCl (Hydromorphone 2 Mg Tablet) 1 mg PO NOW ONE Stop: 07/06/22 18:18 Last Admin: 07/06/22 18:48 Dose: 1 mg Documented By: RENEE Tamsulosin HCl (Tamsulosin 0.4 Mg Capsule) 0.4 mg PO NOW ONE Stop: 07/06/22 18:56 Last Admin: 07/06/22 19:20 Dose: 0.4 mg Documented By: CHADD Vital Signs Vital signs: Vital Signs - 8 hr 07/06/22 17:25 Temperature 99.3 F Pulse Rate 78 Respiratory Rate 16 Blood Pressure 132/61 Pulse Oximetry 98 Oxygen Delivery Method Room Air <Baldo Hussein DO - Last Filed: 07/11/22 19:55> Orders Ordered: Discontinued Medications Acetaminophen (Acetaminophen 325 Mg Tablet) 650 mg PO NOW ONE Stop: 07/06/22 18:18 Last Admin: 07/06/22 18:47 Dose: 650 mg Documented By: RENEE Cefuroxime Axetil (Cefuroxime 250 Mg Tablet) 500 mg PO NOW ONE Stop: 07/06/22 18:51 Last Admin: 07/06/22 19:18 Dose: 500 mg Documented By: CHADD Hydromorphone HCl (Hydromorphone 0.5 Mg Inj) 0.5 mg IV NOW ONE Stop: 07/06/22 18:12 Last Admin: 07/06/22 19:03 Dose: Not Given Documented By: RENEE Hydromorphone HCl (Hydromorphone 2 Mg Tablet) 1 mg PO NOW ONE Stop: 07/06/22 18:18 Last Admin: 07/06/22 18:48 Dose: 1 mg Documented By: RENEE Tamsulosin HCl (Tamsulosin 0.4 Mg Capsule) 0.4 mg PO NOW ONE Stop: 07/06/22 18:56 Last Admin: 07/06/22 19:20 Dose: 0.4 mg Documented By: CHADD Vital Signs Vital signs: Vital Signs - 8 hr 07/06/22 17:25 Temperature 99.3 F Pulse Rate 78 Respiratory Rate 16 Blood Pressure 132/61 Pulse Oximetry 98 Oxygen Delivery Method Room Air <Shira Santoro DO - Last Filed: 07/14/22 07:51> Orders Ordered: Discontinued Medications Acetaminophen (Acetaminophen 325 Mg Tablet) 650 mg PO NOW ONE Stop: 07/06/22 18:18 Last Admin: 07/06/22 18:47 Dose: 650 mg Documented By: RENEE Cefuroxime Axetil (Cefuroxime 250 Mg Tablet) 500 mg PO NOW ONE Stop: 07/06/22 18:51 Last Admin: 07/06/22 19:18 Dose: 500 mg Documented By: CHADD Hydromorphone HCl (Hydromorphone 0.5 Mg Inj) 0.5 mg IV NOW ONE Stop: 07/06/22 18:12 Last Admin: 07/06/22 19:03 Dose: Not Given Documented By: RENEE Hydromorphone HCl (Hydromorphone 2 Mg Tablet) 1 mg PO NOW ONE Stop: 07/06/22 18:18 Last Admin: 07/06/22 18:48 Dose: 1 mg Documented By: RENEE Tamsulosin HCl (Tamsulosin 0.4 Mg Capsule) 0.4 mg PO NOW ONE Stop: 07/06/22 18:56 Last Admin: 07/06/22 19:20 Dose: 0.4 mg Documented By: CHADD Vital Signs Vital signs: Vital Signs - 8 hr 07/06/22 17:25 Temperature 99.3 F Pulse Rate 78 Respiratory Rate 16 Blood Pressure 132/61 Pulse Oximetry 98 Oxygen Delivery Method Room Air MDM - Female Genitourinary <Sindhu Rodríguez [facility] - Last Filed: 07/06/22 19:32> Lab Data 07/06/22 17:52 07/06/22 17:52 Labs: Lab Results 07/06/22 07/06/22 07/06/22 Range/Units 17:29 17:52 17:52 WBC 13.3 H (4.5-11.0) X10^3/uL RBC 4.34 (4.0-5.2) X10^6/uL Hgb 11.3 L (12.0-16.0) g/dL Hct 35.1 L (36-46) % MCV 81.0 (80-100) fL MCH 26.0 (26-34) PG MCHC 32.0 (30-36) % RDW 16.4 H (11.6-14.8) % Plt Count 229 (150-400) X10^3/uL Neut % (Auto) 87.9 H (50-75) % Lymph % (Auto) 5.9 L (25-40) % [place]ward % (Auto) 5.6 (3-14) % Eos % (Auto) 0.2 L (2-4) % Baso % (Auto) 0.4 (0-2) % Neut # (Auto) 31858 H (2179-5573) /uL Lymph # (Auto) 800 L (3715-8755) /uL Woodward # (Auto) 700 (0-900) /uL Eos # (Auto) 0 (0-450) /uL Baso # (Auto) 100 (0-100) /uL PT 13.7 H (10.1-12.7) SECONDS INR 1.2 (0.9-1.3) APTT 28 (26-36) SECONDS Sodium (137-145) mmol/L Potassium (3.4-5.1) mmol/L Chloride (98-107) mmol/L Carbon Dioxide (22-32) mmol/L BUN (7-17) mg/dL Creatinine (0.52-1.04) mg/dL Estimated GFR (>60) mL/min BUN/Creatinine Ratio (6-22) Glucose (80-110) mg/dL Lactate (0.7-2.1) mmol/L Calcium (8.4-10.2) mg/dL Total Bilirubin (0.2-1.3) mg/dL AST (14-36) IU/L ALT (<35) IU/L Alkaline Phosphatase (38-126) U/L Total Protein (6.3-8.2) g/dL Albumin (3.5-5.0) g/dL Globulin (1.7-4.1) g/dL Albumin/Globulin Ratio (1.0-2.8) Lipase (23-300) U/L Procalcitonin (<0.5) ng/mL Urine Color Yellow Urine Appearance Sl cloudy Urine pH 6.0 (4.5-8.0) Ur Specific [place] 1.025 (1.000-1.035) Urine Protein 2+ H (Negative) Urine Glucose (UA) Negative (Negative) g/dL Urine Ketones Negative (NEGATIVE) Urine Occult Blood 3+ H (Negative) Urine Nitrate Negative (Negative) Urine Bilirubin Negative (NEGATIVE) Urine Urobilinogen 0.2 (0.2) E.U./dL Ur Leukocyte Esterase 2+ H (NEGATIVE) Urine RBC 10-30/hpf H (0-5/HPF) Urine WBC 30-100/hpf H (0-5/HPF) Ur Squamous Epith Cells 1-5 /hpf (0-5/HPF) Amorphous Sediment 1+ Urine Bacteria Moderate (10-30) H (None) Urine Mucus 1+ H (Negative) Ur Culture Indicated? Specimen cultured 07/06/22 07/06/22 Range/Units 17:52 17:52 WBC (4.5-11.0) X10^3/uL RBC (4.0-5.2) X10^6/uL Hgb (12.0-16.0) g/dL Hct (36-46) % MCV (80-100) fL MCH (26-34) PG MCHC (30-36) % RDW (11.6-14.8) % Plt Count (150-400) X10^3/uL Neut % (Auto) (50-75) % Lymph % (Auto) (25-40) % [place] % (Auto) (3-14) % Eos % (Auto) (2-4) % Baso % (Auto) (0-2) % Neut # (Auto) (5873-7139) /uL Lymph # (Auto) (8678-6778) /uL [place] # (Auto) (0-900) /uL Eos # (Auto) (0-450) /uL Baso # (Auto) (0-100) /uL PT (10.1-12.7) SECONDS INR (0.9-1.3) APTT (26-36) SECONDS Sodium 137 (137-145) mmol/L Potassium 3.9 (3.4-5.1) mmol/L Chloride 106 (98-107) mmol/L Carbon Dioxide 19 L (22-32) mmol/L BUN 28 H (7-17) mg/dL Creatinine 1.18 H (0.52-1.04) mg/dL Estimated GFR 49 L (>60) mL/min BUN/Creatinine Ratio 23.7 H (6-22) Glucose 160 H (80-110) mg/dL Lactate 1.7 (0.7-2.1) mmol/L Calcium 8.5 (8.4-10.2) mg/dL Total Bilirubin 1.4 H (0.2-1.3) mg/dL AST 17 (14-36) IU/L ALT 16 (<35) IU/L Alkaline Phosphatase 129 H (38-126) U/L Total Protein 7.2 (6.3-8.2) g/dL Albumin 3.7 (3.5-5.0) g/dL Globulin 3.5 (1.7-4.1) g/dL Albumin/Globulin Ratio 1.1 (1.0-2.8) Lipase 73 (23-300) U/L Procalcitonin 0.25 (<0.5) ng/mL Urine Color Urine Appearance Urine pH (4.5-8.0) Ur Specific [place] (1.000-1.035) Urine Protein (Negative) Urine Glucose (UA) (Negative) g/dL Urine Ketones (NEGATIVE) Urine Occult Blood (Negative) Urine Nitrate (Negative) Urine Bilirubin (NEGATIVE) Urine Urobilinogen (0.2) E.U./dL Ur Leukocyte Esterase (NEGATIVE) Urine RBC (0-5/HPF) Urine WBC (0-5/HPF) Ur Squamous Epith Cells (0-5/HPF) Amorphous Sediment Urine Bacteria (None) Urine Mucus (Negative) Ur Culture Indicated? Urine Dip Bedside Urine Glucose Negative Bedside Urine Bilirubin - Negative Bedside Urine Ketone - Negative Urine Specific [place] 1.030 Bedside Urine Occult Blood +++ Bedside Urine pH 6.0 Bedside Urine Protein ++ 100 Bedside Urine Urobilinogen - Negative Bedside Urine Nitrite - Negative Bedside Urine Leukocytes + [address] scan - abdomen/pelvis: Radiologist's Impression: PROCEDURE:? CT KIDNEY URETER BLADDER (KUB) ? INDICATIONS:? left flank pain, hx nephrolithiasis w/stent x2 ? TECHNIQUE:? Axial sections were acquired from the lung bases to the pubic symphysis.? Coronal and sagittal reformats were performed.? For radiation dose reduction, the following was used: ?automated exposure control, adjustment of mA and/or kV according to patient size.? ? COMPARISON:? [facility], CT, CT KIDNEY URETER BLADDER (KUB), 05/01/2022, 21:04. ? FINDINGS:? Image quality:? Excellent.? ? Lung bases:? No consolidations or effusions.? Small hiatal hernia. Heart:? Enlarged heart with dual lead pacemaker leads.? No pericardial effusion. ? URINARY: Right Kidney:? No stones or hydronephrosis. Right Ureter:? No stones or hydroureter. ? Left Kidney:? Moderate hydronephrosis and moderate to marked perinephric inflammation with thickening of Gertoa's fascia.? There is a small upper pole cortical cyst.? Retained nonobstructing intrarenal calculi are present in the lower pole calices, the largest measuring about 7 mm with Hounsfield units of 317. Left Ureter:? There is a moderate hydroureter of the proximal portion.? There is tapering and decompression of the mid to distal ureter without of visible obstructing calcification.? ? Bladder:? Urinary bladder is completely decompressed.? No visible stones. ? ABDOMEN: Liver:? Normal unenhanced appearance. Gallbladder:? Surgically absent. Biliary ducts:? Mildly prominent post cholecystectomy. Pancreas:? Normal. Spleen:? Normal size. Adrenal Glands:? No nodules. ? Stomach and Bowel:? Surgical changes of gastric bypass.? Small bowel loops, appendix, and colon are within normal limits. Peritoneum:? No abnormal intraperitoneal fluid.? No free air.? ? Ventral Wall:? There are surgical changes along the anterior abdominal wall and atrophy of the right rectus muscle.? No new hernia or fluid collection. Abdominal Nodes:? There are several prominent left retroperitoneal/pararenal lymph nodes. Vessels:? Aorta and inferior vena cava are normal in size.? ? PELVIS: Pelvic Organs:? Surgically absent uterus.? Ovarian tissue is not seen. Pelvic Nodes: Unremarkable. Miscellaneous: No inguinal hernias are seen. ? ? ? Bones:? Severe facet arthropathy in the low lumbar spine.? Disc degeneration L3- 4. ? IMPRESSION: ? 1. There are changes of acute moderate left-sided urinary obstruction with a transition point in the mid ureter.? No calcification is seen at this point.? This may be secondary to soft tissue, clot, superimposed on stricture or acute inflammation.? Neoplasm is not excluded.? The appearance is similar, but slightly more severe compared to the prior study. ? 2. There are nonobstructing left intrarenal calculi in the lower pole, similar compared to the prior study.? ? 3. There are reactive lymph nodes in the left pararenal region suggesting an inflammatory etiology.? These are more prominent compared to prior. ? ? Dictated by: Kasandra Jorge M.D. on 07/06/2022 at 18:31 ? ? Approved by: Kasandra Jorge M.D. on 07/06/2022 at 18:40 ? [facility] Narrative Medical decision making narrative: Chief Complaint: Left flank pain Differential diagnoses include but are not limited to: I have reviewed the patient's vital signs and nursing notes as well as prior records if available. Lab test results independently reviewed, pertinent findings: Leukocytosis, mild anemia but not significantly changed from priors, patient does have a left shift, no elevation to INR, creatinine is elevated 1.18 but improved from her prior 1.3, elevated from her prior before that of 0.85. BUN of 49, no lactic acidosis, lactate 1.7, total bilirubin is mildly elevated at 1.4, patient does not complain of any nausea, vomiting, or stool changes. Procalcitonin 0.25, urine dip shows blood, leukocyte esterase, and protein, UA is pending Independently reviewed imaging including: CT KUB shows left-sided urinary obstruction transition point in mid ureter, left kidney hydronephrosis, perine phric inflammation, cyst in the small upper pole, nonobstructing intrarenal calculi, largest of some mm. Moderate hydroureter of the proximal portion tapering and decompression. No visible obstructing calcification. She was treated with tamsulosin so no NSAIDs. Patient states that her pain is much better after pain medication was ordered. CT KUB shows acute moderate left-sided urinary obstruction with a transition point in the mid ureter, also nonobstructing left intrarenal calculi, similar to prior study, reactive lymph nodes in the left pararenal region suggesting inflammatory etiology. More prominent than previous. Patient has been on doxycycline for upper respiratory infection symptoms. She is not been on any antibiotics her tend towards her urine. She has via, blood in her urine as well as leukocyte esterase. IV placement was failed on attempt today. Blood cultures are pending, patient has a leukocytosis of 13.3 with a left shift. She is tolerating p.o., pain is controlled with oral hydromorphone. Recommend that patient follow-up with urology in the next 24-48 hours. Today [facility] is on[facility]call for Urology, instruct patient to follow-up with [facility] as she already has Urology contact for her there. She is provided contact information for [facility] as well as Dr. King/Dewayne. She will be started on cefuroxime twice a day for the next week. Independent consultations with: Patient and her family on behalf of her Urology group Patient states that she has been feeling poorly since her dysuria started. She is instructed to discontinue the doxycycline, start taking tamsulosin for her ureteral obstruction, will take Pyridium for as needed bladder pain, and cefuroxime for upper UTI symptoms. Patient will follow up with Urology at [facility] or [facility] depending on who her primary care provider has referred her to. She is given contact information for all of them. Patient is tolerating p.o. without vomiting, recommend that she follow-up with urology as soon as able. Patient's symptoms improved over duration of stay with above-stated therapies. Social considerations that may affect disposition:none Questions are addressed and there is agreement with the plan and for follow-up. Patient is appropriate for outpatient management. MIPS: This encounter doesn't have any diagnosis' associated with MIPS criteria. <Baldo Hussein DO - Last Filed: 07/11/22 19:55> Lab Data Labs: Lab Results 07/06/22 07/06/22 07/06/22 Range/Units 17:29 17:52 17:52 WBC 13.3 H (4.5-11.0) X10^3/uL RBC 4.34 (4.0-5.2) X10^6/uL Hgb 11.3 L (12.0-16.0) g/dL Hct 35.1 L (36-46) % MCV 81.0 (80-100) fL MCH 26.0 (26-34) PG MCHC 32.0 (30-36) % RDW 16.4 H (11.6-14.8) % Plt Count 229 (150-400) X10^3/uL Neut % (Auto) 87.9 H (50-75) % Lymph % (Auto) 5.9 L (25-40) % [place] % (Auto) 5.6 (3-14) % Eos % (Auto) 0.2 L (2-4) % Baso % (Auto) 0.4 (0-2) % Neut # (Auto) 69374 H (4211-8399) /uL Lymph # (Auto) 800 L (5955-3507) /uL [place] # (Auto) 700 (0-900) /uL Eos # (Auto) 0 (0-450) /uL Baso # (Auto) 100 (0-100) /uL PT 13.7 H (10.1-12.7) SECONDS INR 1.2 (0.9-1.3) APTT 28 (26-36) SECONDS Sodium (137-145) mmol/L Potassium (3.4-5.1) mmol/L Chloride (98-107) mmol/L Carbon Dioxide (22-32) mmol/L BUN (7-17) mg/dL Creatinine (0.52-1.04) mg/dL Estimated GFR (>60) mL/min BUN/Creatinine Ratio (6-22) Glucose (80-110) mg/dL Lactate (0.7-2.1) mmol/L Calcium (8.4-10.2) mg/dL Total Bilirubin (0.2-1.3) mg/dL AST (14-36) IU/L ALT (<35) IU/L Alkaline Phosphatase (38-126) U/L Total Protein (6.3-8.2) g/dL Albumin (3.5-5.0) g/dL Globulin (1.7-4.1) g/dL Albumin/Globulin Ratio (1.0-2.8) Lipase (23-300) U/L Procalcitonin (<0.5) ng/mL Urine Color Yellow Urine Appearance Sl cloudy Urine pH 6.0 (4.5-8.0) Ur Specific [place] 1.025 (1.000-1.035) Urine Protein 2+ H (Negative) Urine Glucose (UA) Negative (Negative) g/dL Urine Ketones Negative (NEGATIVE) Urine Occult Blood 3+ H (Negative) Urine Nitrate Negative (Negative) Urine Bilirubin Negative (NEGATIVE) Urine Urobilinogen 0.2 (0.2) E.U./dL Ur Leukocyte Esterase 2+ H (NEGATIVE) Urine RBC 10-30/hpf H (0-5/HPF) Urine WBC 30-100/hpf H (0-5/HPF) Ur Squamous Epith Cells 1-5 /hpf (0-5/HPF) Amorphous Sediment 1+ Urine Bacteria Moderate (10-30) H (None) Urine Mucus 1+ H (Negative) Ur Culture Indicated? Specimen cultured 07/06/22 07/06/22 Range/Units 17:52 17:52 WBC (4.5-11.0) X10^3/uL RBC (4.0-5.2) X10^6/uL Hgb (12.0-16.0) g/dL Hct (36-46) % MCV (80-100) fL MCH (26-34) PG MCHC (30-36) % RDW (11.6-14.8) % Plt Count (150-400) X10^3/uL Neut % (Auto) (50-75) % Lymph % (Auto) (25-40) % [place] % (Auto) (3-14) % Eos % (Auto) (2-4) % Baso % (Auto) (0-2) % Neut # (Auto) (9905-1426) /uL Lymph # (Auto) (0957-3017) /uL [place] # (Auto) (0-900) /uL Eos # (Auto) (0-450) /uL Baso # (Auto) (0-100) /uL PT (10.1-12.7) SECONDS INR (0.9-1.3) APTT (26-36) SECONDS Sodium 137 (137-145) mmol/L Potassium 3.9 (3.4-5.1) mmol/L Chloride 106 (98-107) mmol/L Carbon Dioxide 19 L (22-32) mmol/L BUN 28 H (7-17) mg/dL Creatinine 1.18 H (0.52-1.04) mg/dL Estimated GFR 49 L (>60) mL/min BUN/Creatinine Ratio 23.7 H (6-22) Glucose 160 H (80-110) mg/dL Lactate 1.7 (0.7-2.1) mmol/L Calcium 8.5 (8.4-10.2) mg/dL Total Bilirubin 1.4 H (0.2-1.3) mg/dL AST 17 (14-36) IU/L ALT 16 (<35) IU/L Alkaline Phosphatase 129 H (38-126) U/L Total Protein 7.2 (6.3-8.2) g/dL Albumin 3.7 (3.5-5.0) g/dL Globulin 3.5 (1.7-4.1) g/dL Albumin/Globulin Ratio 1.1 (1.0-2.8) Lipase 73 (23-300) U/L Procalcitonin 0.25 (<0.5) ng/mL Urine Color Urine Appearance Urine pH (4.5-8.0) Ur Specific [place] (1.000-1.035) Urine Protein (Negative) Urine Glucose (UA) (Negative) g/dL Urine Ketones (NEGATIVE) Urine Occult Blood (Negative) Urine Nitrate (Negative) Urine Bilirubin (NEGATIVE) Urine Urobilinogen (0.2) E.U./dL Ur Leukocyte Esterase (NEGATIVE) Urine RBC (0-5/HPF) Urine WBC (0-5/HPF) Ur Squamous Epith Cells (0-5/HPF) Amorphous Sediment Urine Bacteria (None) Urine Mucus (Negative) Ur Culture Indicated? Urine Dip Bedside Urine Glucose Negative Bedside Urine Bilirubin - Negative Bedside Urine Ketone - Negative Urine Specific [place] 1.030 Bedside Urine Occult Blood +++ Bedside Urine pH 6.0 Bedside Urine Protein ++ 100 Bedside Urine Urobilinogen - Negative Bedside Urine Nitrite - Negative Bedside Urine Leukocytes + 70 Esterase MDM Narrative Medical decision making narrative: Chief Complaint: Left flank pain Differential diagnoses include but are not limited to: I have reviewed the patient's vital signs and nursing notes as well as prior records if available. Lab test results independently reviewed, pertinent findings: Leukocytosis, mild anemia but not significantly changed from priors, patient does have a left shift, no elevation to INR, creatinine is elevated 1.18 but improved from her prior 1.3, elevated from her prior before that of 0.85. BUN of 49, no lactic acidosis, lactate 1.7, total bilirubin is mildly elevated at 1.4, patient does not complain of any nausea, vomiting, or stool changes. Procalcitonin 0.25, urine dip shows blood, leukocyte esterase, and protein, UA is pending Independently reviewed imaging including: CT KUB shows left-sided urinary obstruction transition point in mid ureter, left kidney hydronephrosis, perinephric inflammation, cyst in the small upper pole, nonobstructing intrarenal calculi, largest of some mm. Moderate hydroureter of the proximal portion tapering and decompression. No visible obstructing calcification. She was treated with tamsulosin so no NSAIDs. Patient states that her pain is much better after pain medication was ordered. CT KUB shows acute moderate left-sided urinary obstruction with a transition point in the mid ureter, also nonobstructing left intrarenal calculi, similar to prior study, reactive lymph nodes in the left pararenal region suggesting inflammatory etiology. More prominent than previous. Patient has been on doxycycline for upper respiratory infection symptoms. She is not been on any antibiotics her tend towards her urine. She has via, blood in her urine as well as leukocyte esterase. IV placement was failed on attempt today. Blood cultures are pending, patient has a leukocytosis of 13.3 with a left shift. She is tolerating p.o., pain is controlled with oral hydromorphone. Recommend that patient follow-up with urology in the next 24-48 hours. Today [facility] is on[facility]call for Urology, instruct patient to follow-up with [facility] as she already has Urology contact for her there. She is provided contact inf ormation for [facility] group as well as Dr. King/Dewayne. She will be started on cefuroxime twice a day for the next week. Independent consultations with: Patient and her family on behalf of her Urology group Patient states that she has been feeling poorly since her dysuria started. She is instructed to discontinue the doxycycline, start taking tamsulosin for her ureteral obstruction, will take Pyridium for as needed bladder pain, and cefuroxime for upper UTI symptoms. Patient will follow up with Urology at either [facility] or [facility] depending on who her primary care provider has referred her to. She is given contact information for all of them. Patient is tolerating p.o. without vomiting, recommend that she follow-up with urology as soon as able. Patient's symptoms improved over duration of stay with above-stated therapies. Social considerations that may affect disposition:none Questions are addressed and there is agreement with the plan and for follow-up. Patient is appropriate for outpatient management. MIPS: This encounter doesn't have any diagnosis' associated with MIPS criteria. 07/11/22 ([place]) - reviewed urine cultures noting Enterococcus, patient is on Cefuroxime, also notes Erika. Called patient at home, she is doing well, no fever/chills/N/V. Has appointment with urology on Sunday. Discussed return precautions again. Sent Rx for Fluconazole 200mg daily x14 days to [facility] <Shira Santoro, DO - Last Filed: 07/14/22 07:51> Lab Data Labs: Lab Results 07/06/22 07/06/22 07/06/22 Range/Units 17:29 17:52 17:52 WBC 13.3 H (4.5-11.0) X10^3/uL RBC 4.34 (4.0-5.2) X10^6/uL Hgb 11.3 L (12.0-16.0) g/dL Hct 35.1 L (36-46) % MCV 81.0 (80-100) fL MCH 26.0 (26-34) PG MCHC 32.0 (30-36) % RDW 16.4 H (11.6-14.8) % Plt Count 229 (150-400) X10^3/uL Neut % (Auto) 87.9 H (50-75) % Lymph % (Auto) 5.9 L (25-40) % Woodward % (Auto) 5.6 (3-14) % Eos % (Auto) 0.2 L (2-4) % Baso % (Auto) 0.4 (0-2) % Neut # (Auto) 80122 H (2165-4067) /uL Lymph # (Auto) 800 L (1982-1600) /uL Woodward # (Auto) 700 (0-900) /uL Eos # (Auto) 0 (0-450) /uL Baso # (Auto) 100 (0-100) /uL PT 13.7 H (10.1-12.7) SECONDS INR 1.2 (0.9-1.3) APTT 28 (26-36) SECONDS Sodium (137-145) mmol/L Potassium (3.4-5.1) mmol/L Chloride (98-107) mmol/L Carbon Dioxide (22-32) mmol/L BUN (7-17) mg/dL Creatinine (0.52-1.04) mg/dL Estimated GFR (>60) mL/min BUN/Creatinine Ratio (6-22) Glucose (80-110) mg/dL Lactate (0.7-2.1) mmol/L Calcium (8.4-10.2) mg/dL Total Bilirubin (0.2-1.3) mg/dL AST (14-36) IU/L ALT (<35) IU/L Alkaline Phosphatase (38-126) U/L Total Protein (6.3-8.2) g/dL Albumin (3.5-5.0) g/dL Globulin (1.7-4.1) g/dL Albumin/Globulin Ratio (1.0-2.8) Lipase (23-300) U/L Procalcitonin (<0.5) ng/mL Urine Color Yellow Urine Appearance Sl cloudy Urine pH 6.0 (4.5-8.0) Ur Specific [place] 1.025 (1.000-1.035) Urine Protein 2+ H (Negative) Urine Glucose (UA) Negative (Negative) g/dL Urine Ketones Negative (NEGATIVE) Urine Occult Blood 3+ H (Negative) Urine Nitrate Negative (Negative) Urine Bilirubin Negative (NEGATIVE) Urine Urobilinogen 0.2 (0.2) E.U./dL Ur Leukocyte Esterase 2+ H (NEGATIVE) Urine RBC 10-30/hpf H (0-5/HPF) Urine WBC 30-100/hpf H (0-5/HPF) Ur Squamous Epith Cells 1-5 /hpf (0-5/HPF) Amorphous Sediment 1+ Urine Bacteria Moderate (10-30) H (None) Urine Mucus 1+ H (Negative) Ur Culture Indicated? Specimen cultured 07/06/22 07/06/22 Range/Units 17:52 17:52 WBC (4.5-11.0) X10^3/uL RBC (4.0-5.2) X10^6/uL Hgb (12.0-16.0) g/dL Hct (36-46) % MCV (80-100) fL MCH (26-34) PG MCHC (30-36) % RDW (11.6-14.8) % Plt Count (150-400) X10^3/uL Neut % (Auto) (50-75) % Lymph % (Auto) (25-40) % Woodward % (Auto) (3-14) % Eos % (Auto) (2-4) % Baso % (Auto) (0-2) % Neut # (Auto) (9740-2074) /uL Lymph # (Auto) (9015-2039) /uL Woodward # (Auto) (0-900) /uL Eos # (Auto) (0-450) /uL Baso # (Auto) (0-100) /uL PT (10.1-12.7) SECONDS INR (0.9-1.3) APTT (26-36) SECONDS Sodium 137 (137-145) mmol/L Potassium 3.9 (3.4-5.1) mmol/L Chloride 106 (98-107) mmol/L Carbon Dioxide 19 L (22-32) mmol/L BUN 28 H (7-17) mg/dL Creatinine 1.18 H (0.52-1.04) mg/dL Estimated GFR 49 L (>60) mL/min BUN/Creatinine Ratio 23.7 H (6-22) Glucose 160 H (80-110) mg/dL Lactate 1.7 (0.7-2.1) mmol/L Calcium 8.5 (8.4-10.2) mg/dL Total Bilirubin 1.4 H (0.2-1.3) mg/dL AST 17 (14-36) IU/L ALT 16 (<35) IU/L Alkaline Phosphatase 129 H (38-126) U/L Total Protein 7.2 (6.3-8.2) g/dL Albumin 3.7 (3.5-5.0) g/dL Globulin 3.5 (1.7-4.1) g/dL Albumin/Globulin Ratio 1.1 (1.0-2.8) Lipase 73 (23-300) U/L Procalcitonin 0.25 (<0.5) ng/mL Urine Color Urine Appearance Urine pH (4.5-8.0) Ur Specific [place] (1.000-1.035) Urine Protein (Negative) Urine Glucose (UA) (Negative) g/dL Urine Ketones (NEGATIVE) Urine Occult Blood (Negative) Urine Nitrate (Negative) Urine Bilirubin (NEGATIVE) Urine Urobilinogen (0.2) E.U./dL Ur Leukocyte Esterase (NEGATIVE) Urine RBC (0-5/HPF) Urine WBC (0-5/HPF) Ur Squamous Epith Cells (0-5/HPF) Amorphous Sediment Urine Bacteria (None) Urine Mucus (Negative) Ur Culture Indicated? Urine Dip Bedside Urine Glucose Negative Bedside Urine Bilirubin - Negative Bedside Urine Ketone - Negative Urine Specific [place] 1.030 Bedside Urine Occult Blood +++ Bedside Urine pH 6.0 Bedside Urine Protein ++ 100 Bedside Urine Urobilinogen - Negative Bedside Urine Nitrite - Negative Bedside Urine Leukocytes + 70 Esterase Discharge Plan Departure Patient Disposition: Home Clinical Impression: History of nephrolithiasis Ureteral obstruction Qualifiers: Laterality: left Qualified Code(s): N13.5 - Crossing vessel and stricture of ureter without hydronephrosis Urinary tract infection with hematuria Qualifiers: Urinary tract infection type: acute cystitis Qualified Code(s): N30.01 - Acute cystitis with hematuria Instructions: Urinary Tract Infection, DI for Kidney Stones, DI for Urinary Tract Infection (UTI) Activity Restrictions/Additional Instructions: *You have been diagnosed with ureteral obstruction in the left ureter with mild swelling of the left kidney, evidence of infection of the urine, inflammatory changes of the ureter and concern for kidney stone in the ureter. Please start taking Flomax each night, since you are anticoagulated, please take Tylenol and any other medication that you can tolerate well for pain. Please take this antibiotic twice a day for the next 7 days, okay to take Pyridium for bladder spasm and pain. Use Zofran for nausea and vomiting. Please schedule your appointment with [facility] group, if you are unable to follow-up with them in the near future, please pursue urology with Dr. King or Dr. Buchanan here. All of these providers can see your CT scan which you had today showing this result. Please come back for fever chills, vomiting or inability to tolerate oral intake. Stay hydrated, I hope you feel better soon, thank you for coming in for evaluation today. *What to do: *Please continue to take your regular medications as directed. [ x] New medication prescriptions sent to your pharmacy: [[facility]] [ ] New medication written as a paper prescription [ ] No new medications given *Please follow up with your primary care provider in 2-3 days, call for an appointment. Let them know you were seen in the Emergency Department and that we asked that you be seen for follow-up. We will electronically transmit a record of today's note if your PCP is in our system *If you do not have a primary care provider please contact [phone] to establish care with one of the [facility] primary care providers. *Return to Emergency Department if you should have any new, worsening, or concerning symptoms, such as [fever greater than 101F, chills, worsening pain, persistent vomiting or other bothersome symptoms]. Prescriptions: New phenazopyridine [Pyridium] 200 mg tablet 200 mg PO QPC Qty: 7 0RF ondansetron 4 mg tablet,disintegrating 4 mg PO Q8H PRN (Reason: nausea and vomiting) Qty: 10 0RF tamsulosin 0.4 mg capsule 0.4 mg PO BEDTIME PRN (Reason: ureteral obstruction) Qty: 14 0RF hydromorphone 2 mg tablet 1 mg PO Q8H PRN (Reason: pain) Qty: 7 0RF polyethylene glycol 3350 [Miralax] 17 gram/dose powder 17 g PO DAILY Qty: 119 0RF fluconazole [Diflucan] 200 mg tablet 200 mg PO DAILY Qty: 14 0RF No Action valsartan 80 mg Tablet 80 mg PO DAILY Qty: 0 levothyroxine 88 MCG tablet 88 mcg PO QAM Qty: 0 sotalol 80 mg tablet 80 mg PO BID Eliquis 5 mg tablet 5 mg PO DAILY pantoprazole 40 mg tablet,delayed release (DR/EC) 40 mg PO BID Refresh Plus 0.5 % dropperette 2 drp EYE-BOTH BID PRN (Reason: Dry Eyes) diclofenac sodium 1 % gel 2 g topical QID PRN (Reason: Pain (Scale Score 1-3)) Rx Instructions: apply to single elbow, wrist or hand; for hand includes palm/fingers/back of hand lidocaine 5 % adhesive patch,medicated 1 patch TOP DAILY PRN (Reason: pain) Qty: 15 0RF Rx Instructions: leave on most painful area for up to 12 hrs promethazine 25 mg Tablet 25 mg PO TID PRN (Reason: nausea/vomiting) fluticasone propion-salmeterol [Advair Diskus] 100-50 mcg/dose blister with device 1 inh INHALATION BID sulfamethoxazole-trimethoprim 800-160 mg tablet 1 tab PO BID Rx Instructions: started 04/25 x 14 days Referrals: [facility] - [facility] [Outside] [facility] [Outside] Shea Rosas MD [Primary Care Provider] - Shayna Hatfield PA-C [Non-Staff] - Chico Buchanan MD [Physician] - Heath King MD [Physician] - Stand Alone Forms: Patient Portal/API, Work Release Note <Shira Santoro, DO - Last Filed: 07/14/22 07:51> Cosign ED Attending Cosignature Attestation: I was immediately available in the department for consultation. Documentation has been reviewed.
[2022-07-06 19:00] VITALS: PULSE 68; RESP 27; O2SAT 97
[2022-07-06 19:01] LABS: Bilirubin Urine UA NEGATIVE (NEGATIVE); Color Urine UA YELLOW; Glucose Urine UA NEGATIVE (Negative); Ketones Urine UA NEGATIVE (NEGATIVE); Leukocyte Esterase Urine UA 2+ (NEGATIVE); Nitrite Urine UA NEGATIVE (Negative); Occult Blood Urine UA 3+ (Negative); Protein Urine UA 2+ (Negative); Specific Gravity Urine UA 1.025 (1.000-1.035); Urobilinogen Urine UA 0.2 E.U./dL (0.2)
[2022-07-06 19:12] LABS: Appearance Urine UA SL CLOUDY
[2022-07-06 19:14] LABS: Amorphous Sediment Urine 1+; Bacteria Urine Moderate (10-30); Culture Indicated Urine Specimen Cultured; Mucus Urine 1+ (Negative); RBC Urine 10-30/HPF (0-5/HPF); Squamous Epithelial Cell Urine 1-5 /HPF (0-5/HPF); WBC Urine 30-100/HPF (0-5/HPF)
[2022-07-06] MEDS: cefUROXime 250 MG TABLET 500 MG PO (19:18)
[2022-07-06] MEDS: TAMSULOSIN 0.4 MG CAPSULE PO (19:20)
--- NOTE | 2022-07-06 19:25 | PC.NURSE ---
pt states she had kidney stone broken up a few weeks ago had a stent placed afterwards. had stent removed and has a lot of bleeding. she attempted to call her urologist and did not get feedback. today the pain was too much and she came into the ER. pt also c/o SOB and pain in her abdomen.
[2022-07-06 19:30] VITALS: BP 121/56; PULSE 66; RESP 22; O2SAT 96
== END 2022-07-06 19:41 | disposition home or self-care (01) ==
PROVIDERS: Emergency Medicine; Emergency Provider Nurse Practitioner Critical Care Medicine; Family Provider Internal Medicine; PCP Internal Medicine
DX: N13.5 Crossing vessel and stricture of ureter without hydronephrosis (principal); N30.01 Acute cystitis with hematuria; D64.9 Anemia, unspecified; Z79.01 Long term (current) use of anticoagulants; R79.89 Other specified abnormal findings of blood chemistry; Z87.442 Personal history of urinary calculi
CPT/HCPCS: 36415; 74176; 80053; 81001; 81003; 83605; 83690; 84145; 85025; 85610; 85730; 87040; 87077; 87086; 87185; 87186; 99284

== ENCOUNTER → 2022-08-08 13:43 | Outpatient (CLI) | payer MEDICARE, OTHER, SELFPAY ==
[2021-10-19 17:19] VITALS: BMI 34.3
[2022-08-08 14:27] LABS: BUN Creatinine Ratio 18.3 (6-22); Blood Urea Nitrogen 19 mg/dL (7-17); Calcium 8.5 mg/dL (8.4-10.2); Carbon Dioxide 29 mmol/L (22-32); Chloride 105 mmol/L (98-107); Estimated Glomerular Filt Rate 57 mL/min (>60); Glucose 117 mg/dL (80-110); HEMOLYSIS < 15 (0-50); Potassium 4.7 mmol/L (3.4-5.1); Sodium 141 mmol/L (137-145)
== END ==
PROVIDERS: Family Provider Internal Medicine; PCP Student in an Organized Health Care Education/Training Program; Referring Provider Nurse Practitioner; Visit Provider Nurse Practitioner
DX: I48.0 Paroxysmal atrial fibrillation (principal)
CPT/HCPCS: 36415; 80048

== ENCOUNTER 2022-10-02 09:57 | Emergency (ER) | payer MEDICARE, OTHER, SELFPAY ==
[2021-10-19 17:19] VITALS: BMI 34.3
[2022-10-02 10:00] VITALS: BP 178/77; PULSE 76; RESP 14; TEMP 36.5; O2SAT 98; BMI 32.8
--- NOTE | 2022-10-02 10:32 | ED.BACK ---
HPI - Back Pain/Injury General Chief Complaint: Back Pain/Injury Stated Complaint: lower back T-2 Time Seen by Provider: 10/02/22 10:13 Source: patient Mode of arrival: Ambulatory Limitations: no limitations History of Present Illness HPI Narrative: Patient is a 72-year-old female who on Sunday of last week was at work. 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 She states that she was coming down at 1 time. She states she did not missed the step when she stepped down she had a fairly sudden onset of lower back pain. It has continued since then. She is tried Tylenol at home without any improvement. No bowel or bladder. She did not fall. No radiation into her legs. No prior back surgeries. Skin changes. Related Data Home Medications Medication Instructions Recorded Confirmed levothyroxine 88 mcg tablet 88 mcg PO QAM ##0 02/06/12 05/01/22 valsartan 80 mg tablet 80 mg PO DAILY ##0 02/06/12 05/01/22 apixaban 5 mg tablet (Eliquis) 5 mg PO DAILY 04/05/21 05/01/22 carboxymethylcellulose sodium 0.5 2 drp EYE-BOTH BID PRN Dry Eyes 04/05/21 05/01/22 % eye drops in a dropperette (Refresh Plus) diclofenac sodium 1 % topical gel 2 g topical QID PRN Pain (Scale 04/05/21 05/01/22 Score 1-3) pantoprazole 40 mg tablet,delayed 40 mg PO BID 04/05/21 05/01/22 release sotalol 80 mg tablet 80 mg PO BID 04/05/21 05/01/22 fluticasone 100 mcg-salmeterol 50 1 inh inhalation BID 05/01/22 05/01/22 mcg/dose blistr powdr for inhalation (Advair Diskus) promethazine 25 mg tablet 25 mg PO TID PRN nausea/vomiting 05/01/22 05/01/22 sulfamethoxazole 800 1 tab PO BID 05/01/22 05/01/22 mg-trimethoprim 160 mg tablet Previous Rx's Medication Instructions Recorded lidocaine 5 % topical patch 1 patch topical DAILY PRN pain #15 11/02/19 ea hydromorphone 2 mg tablet 1 mg PO Q8H PRN pain #7 tabs 07/06/22 ondansetron 4 mg disintegrating 4 mg PO Q8H PRN nausea and 07/06/22 tablet vomiting #10 tabs phenazopyridine 200 mg tablet 200 mg PO QPC bladder pain 6 doses 07/06/22 (Pyridium) #7 tabs polyethylene glycol 3350 17 17 g PO DAILY #119 grams 07/06/22 gram/dose oral powder (Miralax) tamsulosin 0.4 mg capsule 0.4 mg PO BEDTIME PRN ureteral 07/06/22 obstruction #14 caps fluconazole 200 mg tablet 200 mg PO DAILY #14 tabs 07/11/22 (Diflucan) cyclobenzaprine 10 mg tablet 10 mg PO TID PRN muscle spasm #14 10/02/22 tabs hydrocodone 5 mg-acetaminophen 325 1 tab PO Q4-6H PRN pain #10 tabs 10/02/22 mg tablet Allergies Allergy/AdvReac Type Severity Reaction Status Date / Time codeine Allergy Intermediate Rash Verified 07/06/22 17:30 celecoxib [CELECOXIB] Allergy Unknown Verified 07/06/22 17:30 lactobacillus [LACTOBACILLUS] Allergy Unknown Verified 07/06/22 17:30 morphine [MORPHINE] Allergy Unknown Verified 07/06/22 17:30 oxycodone [OXYCODONE] Allergy Unknown Verified 07/06/22 17:30 Iodine and Iodide Containing Allergy Verified 07/06/22 17:30 Produc Review of Systems Constitutional Constitutional: Reports system reviewed and no additional complaints, except as documented Musculoskeletal Musculoskeletal: Reports system reviewed and no additional complaints, except as documented Integumentary/Breasts Skin/Breast: Reports system reviewed and no additional complaints, except as documented Neurologic Neurologic: Reports system reviewed and no additional complaints, except as documented Hematologic/Lymphatic On Anticoagulants: Yes Patient History Medical History Anxiety and depression (~1996) Chronic back pain (~2012) COPD (chronic obstructive pulmonary disease) (~2018) Endometrial hyperplasia GERD (gastroesophageal reflux disease) (~2009) Headache (~2018) Hypertension (~1995) Hypothyroidism Postmenopausal bleeding Sarcoidosis (~1978) Uterine mass Wears glasses Surgical History Anesthesia History of abdominoplasty (~2012) History of breast lift (~2012) History of carpal tunnel repair History of cataract removal with insertion of prosthetic lens (~2018) History of gastric bypass (~2009) History of knee replacement History of knee replacement Presence of cardiac pacemaker (~2009) Status post breast lumpectomy Status post cholecystectomy (~1979) Status post dilation and curettage Status post surgery (04/09/15) Family History Father Cancer Brother Cancer Brother History of heart disease Hypertension Stroke Sister Cancer Social History household members: friend(s) Smoking Status: Never smoker alcohol intake: never Smoking Status: Never smoker alcohol intake frequency: holidays/special occasions only Substance Use Type: does not use Exam Initial Vital Signs Initial Vital Signs: Vital Signs Temperature 97.7 F 10/02/22 10:00 Pulse Rate 76 10/02/22 10:00 Respiratory Rate 14 10/02/22 10:00 Blood Pressure 178/77 H 10/02/22 10:00 Pulse Oximetry 98 10/02/22 10:00 Oxygen Delivery Method Room Air 10/02/22 10:00 Back/Spine/Pelvis Back: No CVA tenderness Thoracic/Lumbar Spine: paraspinal tenderness, No thoracic spinal tenderness and lumbar spinal tenderness Skin General: no rashes or lesions noted Neuro General: patient alert, patient awake and moves all extremities Extrem General: normal to inspection and capillary refill normal Course Orders Ordered: Discontinued Medications Hydrocodone Bitart/Acetaminophen (Hydrocodone/Acet 5/325 Tablet) 1 tab PO NOW ONE Stop: 10/02/22 10:34 Vital Signs Vital signs: Vital Signs - 8 hr 10/02/22 10:00 Temperature 97.7 F Pulse Rate 76 Respiratory Rate 14 Blood Pressure 178/77 H Pulse Oximetry 98 Oxygen Delivery Method Room Air MDM - Back Pain/Injury MDM Narrative Medical decision making narrative: Patient does have tenderness to palpation mostly paraspinal in the lumbar region with fullness of the erector spinae muscles in this area. She is no radicular symptoms. No skin changes. She did not fall. Low suspicion for fracture. No indication for radiologic studies. On my exam this is fairly consistent with a musculoskeletal etiology. Plan will be is to treat symptoms currently. She has a history of stomach ulcers in his also on anticoagulation. She does take a PPI every day so we will try to avoid nonsteroidal anti-inflammatories. Will discharge home with symptom treatment. She was given return precautions. She expressed understanding and agreement. Discharge Plan Departure Patient Disposition: Home Clinical Impression: Strain of lumbar region Instructions: DI for Back Strain or Sprain Activity Restrictions/Additional Instructions: Based on your exam today I have low suspicion that there are any spine fractures. Symptoms such as yours very often improve on their own but sometimes it can take days to weeks. Until then we will try to control the symptoms. Medications were sent to the pharmacy of your choice simply start taking them as directed. I also recommend that you try to stay as active as possible. You can try heat/ice and massage and light stretching. Contact your primary doctor for a follow-up. Prescriptions: New hydrocodone-acetaminophen 5-325 mg tablet 1 tab PO Q4-6H PRN (Reason: pain) Qty: 10 0RF cyclobenzaprine 10 mg tablet 10 mg PO TID PRN (Reason: muscle spasm) Qty: 14 0RF No Action valsartan 80 mg Tablet 80 mg PO DAILY Qty: 0 levothyroxine 88 MCG tablet 88 mcg PO QAM Qty: 0 sotalol 80 mg tablet 80 mg PO BID Eliquis 5 mg tablet 5 mg PO DAILY pantoprazole 40 mg tablet,delayed release (DR/EC) 40 mg PO BID Refresh Plus 0.5 % dropperette 2 drp EYE-BOTH BID PRN (Reason: Dry Eyes) diclofenac sodium 1 % gel 2 g topical QID PRN (Reason: Pain (Scale Score 1-3)) Rx Instructions: apply to single elbow, wrist or hand; for hand includes palm/fingers/back of hand lidocaine 5 % adhesive patch,medicated 1 patch TOP DAILY PRN (Reason: pain) Qty: 15 0RF Rx Instructions: leave on most painful area for up to 12 hrs phenazopyridine [Pyridium] 200 mg tablet 200 mg PO QPC Qty: 7 0RF ondansetron 4 mg tablet,disintegrating 4 mg PO Q8H PRN (Reason: nausea and vomiting) Qty: 10 0RF tamsulosin 0.4 mg capsule 0.4 mg PO BEDTIME PRN (Reason: ureteral obstruction) Qty: 14 0RF hydromorphone 2 mg tablet 1 mg PO Q8H PRN (Reason: pain) Qty: 7 0RF polyethylene glycol 3350 [Miralax] 17 gram/dose powder 17 g PO DAILY Qty: 119 0RF fluconazole [Diflucan] 200 mg tablet 200 mg PO DAILY Qty: 14 0RF promethazine 25 mg Tablet 25 mg PO TID PRN (Reason: nausea/vomiting) fluticasone propion-salmeterol [Advair Diskus] 100-50 mcg/dose blister with device 1 inh INHALATION BID sulfamethoxazole-trimethoprim 800-160 mg tablet 1 tab PO BID Rx Instructions: started 04/25 x 14 days Referrals: Abelardo Burnham DO [Primary Care Provider] - Stand Alone Forms: Patient Portal/API
[2022-10-02] MEDS: HYDROCODONE/ACET 5/325 TABLET 1 TAB PO (10:44)
== END 2022-10-02 11:00 | disposition home or self-care (01) ==
PROVIDERS: Emergency Provider Emergency Medicine; Family Provider Internal Medicine; PCP Student in an Organized Health Care Education/Training Program
DX: S39.012A Strain of muscle, fascia and tendon of lower back, initial encounter (principal); X58.XXXA Exposure to other specified factors, initial encounter
CPT/HCPCS: 99283

== ENCOUNTER 2022-10-09 18:47 | Emergency (ER) | payer MEDICARE, OTHER, SELFPAY ==
[2021-10-19 17:19] VITALS: BMI 34.3
[2022-10-09 18:57] VITALS: BP 138/80; PULSE 69; RESP 18; TEMP 36.9; O2SAT 100; BMI 33.3
[2022-10-09 20:17] LABS: Appearance Urine UA CLEAR; Bilirubin Urine UA NEGATIVE (NEGATIVE); Color Urine UA YELLOW; Glucose Urine UA NEGATIVE (Negative); Ketones Urine UA NEGATIVE (NEGATIVE); Leukocyte Esterase Urine UA TRACE (NEGATIVE); Nitrite Urine UA NEGATIVE (Negative); Occult Blood Urine UA NEGATIVE (Negative); Protein Urine UA NEGATIVE (Negative); Urobilinogen Urine UA 0.2 E.U./dL (0.2)
[2022-10-09 20:18] LABS: pH Urine UA 5.5 (4.5-8.0)
[2022-10-09 20:27] LABS: Amorphous Sediment Urine 1+; Bacteria Urine Occasional (0-1); Culture Indicated Urine Specimen Cultured; RBC Urine 0-1/HPF (0-5/HPF); Renal Epithelial Cells Urine 0-1/HPF (0-1/HPF); Squamous Epithelial Cell Urine 1-5 /HPF (0-5/HPF); WBC Urine 5-10/HPF (0-5/HPF)
[2022-10-09 21:26] VITALS: BP 174/75; PULSE 81; RESP 20; O2SAT 100
--- NOTE | 2022-10-09 21:26 | PC.NURSE ---
Patient states she was here last week regarding this backpain. Received perscription medications that are not working for her. Patient spoke to her doctor trying to get an appointment but is unable to get in and the doctor told the patient to come back to the ED for a follow up XRay
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
[2022-10-09 23:05] VITALS: PULSE 61; O2SAT 99
[2022-10-09 23:30] VITALS: PULSE 62; O2SAT 100
[2022-10-10] VITALS: PULSE 61; O2SAT 99
[2022-10-10 00:30] VITALS: PULSE 63; O2SAT 100
[2022-10-10 00:53] VITALS: BP 155/69; PULSE 60; O2SAT 100
== END 2022-10-10 01:08 | disposition home or self-care (01) ==
PROVIDERS: Emergency Provider Emergency Medicine; Family Provider Internal Medicine; PCP Student in an Organized Health Care Education/Training Program
DX: M62.830 Muscle spasm of back (principal)
CPT/HCPCS: 72100; 81001; 87086; 99282; 99283

== ENCOUNTER 2022-12-24 16:37 | Emergency (ER) | payer OTHER, SELFPAY ==
[2021-10-19 17:19] VITALS: BMI 34.3
[2022-12-24 17:08] VITALS: BP 154/87; PULSE 64; RESP 16; TEMP 36.3; O2SAT 98; BMI 34.9
--- NOTE | 2022-12-24 18:16 | ED_ITS ---
HPI - Back Pain/Injury General Chief Complaint: Back Pain/Injury Stated Complaint: low back injury at work/didit 12/25 Time Seen by Provider: 12/24/22 18:07 Source: patient History of Present Illness HPI Narrative: 72-year-old female nonsmoker with history of chronic low back pain relating to a work-related injury presents with low back pain relating to a work-related injury suffered yesterday. She states that she was down on 1 knee crouched down and pulling heavy boxes when she felt a sudden onset of pain in her mid back. She states it is sharp and stabbing and does not radiate. She denies numbness, tingling or weakness. She denies any fever or chills. She denies any loss of control of bowel or bladder. Her pain is worse when she moves and improves with rest. She states that it did not improve after taking Tylenol. She denies fever or chills. She does take Eliquis. Related Data Home Medications Medication Instructions Recorded Confirmed levothyroxine 88 mcg tablet 88 mcg PO QA ##0 02/06/12 05/01/22 valsartan 80 mg tablet 80 mg PO DAILY ##0 02/06/12 05/01/22 apixaban 5 mg tablet (Eliquis) 5 mg PO DAILY 04/05/21 05/01/22 carboxymethylcellulose sodium 0.5 2 drp EYE-BOTH BID PRN Dry Eyes 04/05/21 05/01/22 % eye drops in a dropperette (Refresh Plus) diclofenac sodium 1 % topical gel 2 g topical QID PRN Pain (Scale 04/05/21 05/01/22 Score 1-3) pantoprazole 40 mg tablet,delayed 40 mg PO BID 04/05/21 05/01/22 release sotalol 80 mg tablet 80 mg PO BID 04/05/21 05/01/22 fluticasone 100 mcg-salmeterol 50 1 inh inhalation BID 05/01/22 05/01/22 mcg/dose blistr powdr for inhalation (Advair Diskus) promethazine 25 mg tablet 25 mg PO TID PRN nausea/vomiting 05/01/22 05/01/22 sulfamethoxazole 800 1 tab PO BID 05/01/22 05/01/22 mg-trimethoprim 160 mg tablet Previous Rx's Medication Instructions Recorded lidocaine 5 % topical patch 1 patch topical DAILY PRN pain #15 11/02/19 ea hydromorphone 2 mg tablet 1 mg PO Q8H PRN pain #7 tabs 07/06/22 ondansetron 4 mg disintegrating 4 mg PO Q8H PRN nausea and 07/06/22 tablet vomiting #10 tabs phenazopyridine 200 mg tablet 200 mg PO QPC bladder pain 6 doses 07/06/22 (Pyridium) #7 tabs polyethylene glycol 3350 17 17 g PO DAILY #119 grams 07/06/22 gram/dose oral powder (Miralax) tamsulosin 0.4 mg capsule 0.4 mg PO BEDTIME PRN ureteral 07/06/22 obstruction #14 caps fluconazole 200 mg tablet 200 mg PO DAILY #14 tabs 07/11/22 (Diflucan) cyclobenzaprine 10 mg tablet 10 mg PO TID PRN muscle spasm #14 10/02/22 tabs hydrocodone 5 mg-acetaminophen 325 1 tab PO Q4-6H PRN pain #10 tabs 10/02/22 mg tablet cyclobenzaprine 10 mg tablet 10 mg PO TID PRN muscle spasm #14 10/09/22 tabs cyclobenzaprine 10 mg tablet 10 mg PO TID PRN muscle spasm #14 12/24/22 tabs hydrocodone 5 mg-acetaminophen 325 1 tab PO Q4-6H PRN pain #10 tabs 12/24/22 mg tablet Allergies Allergy/AdvReac Type Severity Reaction Status Date / Time codeine Allergy Intermediate Rash Verified 10/09/22 18:57 celecoxib [CELECOXIB] Allergy Unknown Verified 10/09/22 18:57 lactobacillus [LACTOBACILLUS] Allergy Unknown Verified 10/09/22 18:57 morphine [MORPHINE] Allergy Unknown Verified 10/09/22 18:57 oxycodone [OXYCODONE] Allergy Unknown Verified 10/09/22 18:57 Iodine and Iodide Containing Allergy Verified 10/09/22 18:57 Produc Review of Systems Review of Systems Narrative: GENERAL: Denies chills, fatigue, malaise, fever, sweats. HEENT: Denies sinus pain, ear pain, sore throat, difficulty swallowing, dizziness. RESPIRATORY: Denies dyspnea, cough, wheezing, hemoptysis, sputum. CARDIOVASCULAR: Denies chest pain, palpitations, orthopnea, edema, GASTROINTESTINAL: Denies nausea, vomiting, abdominal pain, diarrhea, constipation, melena. : Denies dysuria, frequency, incontinence, hematuria, urinary retention. MUSCULOSKELETAL: See HPI SKIN: Denies rash, skin lesions, or other NEUROLOGIC: Denies weakness, headache, numbness, change in speech, confusion, seizures, incoordination. PSYCHIATRIC: No concerning psychosocial issues. 12 point review of systems is negative except for those stated above Patient History Medical History Anxiety and depression (~1996) Chronic back pain (~2012) COPD (chronic obstructive pulmonary disease) (~2018) Endometrial hyperplasia GERD (gastroesophageal reflux disease) (~2009) Headache (~2018) Hypertension (~1995) Hypothyroidism Postmenopausal bleeding Sarcoidosis (~1978) Uterine mass Wears glasses Surgical History Anesthesia History of abdominoplasty (~2012) History of breast lift (~2012) History of carpal tunnel repair History of cataract removal with insertion of prosthetic lens (~2018) History of gastric bypass (~2009) History of knee replacement History of knee replacement Presence of cardiac pacemaker (~2009) Status post breast lumpectomy Status post cholecystectomy (~1979) Status post dilation and curettage Status post surgery (04/09/15) Family History Father Cancer Brother Cancer Brother History of heart disease Hypertension Stroke Sister Cancer Social History household members: friend(s) Smoking Status: Never smoker alcohol intake: never Smoking Status: Never smoker alcohol intake frequency: holidays/special occasions only Substance Use Type: does not use Exam Narrative Exam Narrative: GENERAL: [72] year old patient appears stated age. Well-developed patient, in mild distress. HEAD: Atraumatic. Normocephalic. EYES: Pupils equal round and reactive. Extraocular motions intact. No scleral icterus. No injection or drainage. ENT: Nose without bleeding, purulent drainage. Throat without erythema, tonsillar hypertrophy or exudate. Airway patent. NECK: Trachea midline. Non tender CARDIOVASCULAR: Regular rate and rhythm without murmurs, gallops, or rubs. RESPIRATORY: Clear to auscultation. Breath sounds equal bilaterally. No wheezes, rales, or rhonchi. GASTROINTESTINAL: Abdomen soft, non-tender, nondistended. EXTREMITIES: No edema or joint tenderness. BACK: Pain with minimal palpation of the lumbar paraspinal musculature, no signs of swelling, redness or erythema, no saddle anesthesia, no sensory deficit in lower extremities, bilateral lower extremities 5/5 strength, bilateral patellar reflexes 1+ NEURO: AOx3. SKIN: No rash or erythema of visible areas Initial Vital Signs Initial Vital Signs: Vital Signs Temperature 97.3 F L 12/24/22 17:08 Pulse Rate 64 12/24/22 17:08 Respiratory Rate 16 12/24/22 17:08 Blood Pressure 154/87 H 12/24/22 17:08 Pulse Oximetry 98 12/24/22 17:08 Oxygen Delivery Method Room Air 12/24/22 17:08 Course Orders Ordered: ED Orders 12/24/22 18:17 CT lumbar spine wo con Stat Discontinued Medications Hydrocodone Bitart/Acetaminophen (Hydrocodone/Acet 5/325 Prepack) 1 bottle MISC SEEINSTR ONE Stop: 12/24/22 20:57 Last Admin: 12/24/22 21:09 Dose: 1 bottle Documented By: SLICK Cyclobenzaprine HCl (Cyclobenzaprine 10 Mg Prepack) 1 bottle MISC SEEINSTR ONE Stop: 12/24/22 20:57 Last Admin: 12/24/22 21:09 Dose: 1 bottle Documented By: SLICK Vital Signs Vital signs: Vital Signs - 8 hr 12/24/22 21:12 Pulse Rate 64 Respiratory Rate 16 Blood Pressure 149/95 H Pulse Oximetry 99 Oxygen Delivery Method Room Air MDM - Back Pain/Injury MDM Narrative Medical decision making narrative: 72[] year old patient presents with paraspinal back pain Multiple etiologies for patient's symptoms considered including, but not limited to: [Musculoskeletal versus fracture versus spasm versus epidural hematoma versus epidural abscess versus other] Prior Charts reviewed in our EMR Primary Historian: patient Imaging reviewed: CT lumbar demonstrates multiple levels of lumbar spine degenerative change History and physical exam are reassuring, no signs of cauda equina, epidural abscess or hematoma, no numbness, tingling, weakness, no loss of control of bowel or bladder. Pain is reproducible with palpation of paraspinal musculature. There is no radiation of this pain. Findings and discharge diagnosis discussed with patient/family followed by verbalization of understanding Return precautions discussed with patient/family whom verbalize understanding of diagnosis and plan Discharge Plan Departure Patient Disposition: Home Clinical Impression: Low back pain Instructions: DI for Back Spasm Activity Restrictions/Additional Instructions: *You have been diagnosed with [low back pain. As we discussed your history and physical exam as well as CT scan are reassuring and there is no evidence of a neurosurgical emergency] *What to do: *Please continue to take your regular medications as directed. [x ] New medication prescriptions sent to your pharmacy: [[facility] in [place] ] [ ] New medication written as a paper prescription [ ] No new medications given *Please follow up with your primary care provider in 2-3 days, call for an appointment. Let them know you were seen in the Emergency Department and that we ask that you be seen in follow up. We will electronically transmit a record of today's note if your PCP is in our system *If you do not have a primary care provider please contact the [facility] Resource line at [phone]. They will ask some questions about your medical history and help get you set up with a doctor in the community. *Return to Emergency Department if you should have any new, worsening or concerning symptoms, such as [fever greater than 101 F, shaking chills, worsening pain, persistent vomiting or other bothersome symptoms] You have been prescribed a short course of narcotic medications. These are potentially dangerous and addictive medications that should be used carefully. While on these medications you cannot drive or operate heavy machinery. Additionally, you cannot sign legal documents or perform any duties such as this. Many people get constipated on narcotic medications so it would be advisable to discuss stool softeners with the pharmacist when you fiber picker your prescription. Please understand that we cannot provide further refills of narcotics or controlled substances through the ED and your pain management will need to be through your Primary Care Provider Prescriptions: New cyclobenzaprine 10 mg tablet 10 mg PO TID PRN (Reason: muscle spasm) Qty: 14 0RF hydrocodone-acetaminophen 5-325 mg tablet 1 tab PO Q4-6H PRN (Reason: pain) Qty: 10 0RF No Action valsartan 80 mg Tablet 80 mg PO DAILY Qty: 0 levothyroxine 88 MCG tablet 88 mcg PO QAM Qty: 0 sotalol 80 mg tablet 80 mg PO BID Eliquis 5 mg tablet 5 mg PO DAILY pantoprazole 40 mg tablet,delayed release (DR/EC) 40 mg PO BID Refresh Plus 0.5 % dropperette 2 drp EYE-BOTH BID PRN (Reason: Dry Eyes) diclofenac sodium 1 % gel 2 g topical QID PRN (Reason: Pain (Scale Score 1-3)) Rx Instructions: apply to single elbow, wrist or hand; for hand includes palm/fingers/back of hand lidocaine 5 % adhesive patch,medicated 1 patch TOP DAILY PRN (Reason: pain) Qty: 15 0RF Rx Instructions: leave on most painful area for up to 12 hrs phenazopyridine [Pyridium] 200 mg tablet 200 mg PO QPC Qty: 7 0RF ondansetron 4 mg tablet,disintegrating 4 mg PO Q8H PRN (Reason: nausea and vomiting) Qty: 10 0RF tamsulosin 0.4 mg capsule 0.4 mg PO BEDTIME PRN (Reason: ureteral obstruction) Qty: 14 0RF hydromorphone 2 mg tablet 1 mg PO Q8H PRN (Reason: pain) Qty: 7 0RF polyethylene glycol 3350 [Miralax] 17 gram/dose powder 17 g PO DAILY Qty: 119 0RF fluconazole [Diflucan] 200 mg tablet 200 mg PO DAILY Qty: 14 0RF hydrocodone-acetaminophen 5-325 mg tablet 1 tab PO Q4-6H PRN (Reason: pain) Qty: 10 0RF cyclobenzaprine 10 mg tablet 10 mg PO TID PRN (Reason: muscle spasm) Qty: 14 0RF cyclobenzaprine 10 mg tablet 10 mg PO TID PRN (Reason: muscle spasm) Qty: 14 0RF promethazine 25 mg Tablet 25 mg PO TID PRN (Reason: nausea/vomiting) fluticasone propion-salmeterol [Advair Diskus] 100-50 mcg/dose blister with device 1 inh INHALATION BID sulfamethoxazole-trimethoprim 800-160 mg tablet 1 tab PO BID Rx Instructions: started 04/25 x 14 days Referrals: Abelardo Burnham DO [Primary Care Provider] - Stand Alone Forms: Patient Portal/API, Work Release Note
--- NOTE | 2022-12-24 18:17 | DI.CT.S_ITS ---
PROCEDURE: CT LUMBAR SPINE WO CON INDICATIONS: worsening midline back pain TECHNIQUE: Noncontrast 3 mm thick sections acquired from the T12 level to the sacrum. Sagittal and coronal reformats were constructed. For radiation dose reduction, the following was used: automated exposure control. COMPARISON: [facility], CT, CT KIDNEY URETER BLADDER (KUB), 07/06/2022, 18:17. [facility], CR, XR LUMBAR SPINE 2-3V, 10/09/2022, 22:49. [facility], CT, L-SPINE WITHOUT CONTRAST, 12/11/2016, 7:35. FINDINGS: Image quality: Excellent. Bones: No acute vertebral body compression fractures. No suspicious lytic or blastic bony lesions. No pars defects. Mild levoconvex scoliotic curvature is noted. There is minimal retrolisthesis seen at the L2-L3 level and at the L3-L4 level. This patient has transitional lumbar anatomy. For the purposes of this examination, the level with the last well-developed pair of ribs is considered to be T12. By this numbering scheme, there is a relatively well developed S1-S2 disc. This numbering scheme is chosen to remain consistent with the prior 2017 report. T12-L1: The disc height is relatively well preserved. Partially bridging anterior osteophytes are seen. No significant neural foraminal or central canal narrowing can be seen. L1-L2: The disc height is relatively well preserved. Mild disc bulge is seen, with a central disc osteophyte protrusion. Moderate bilateral neural foraminal narrowing is seen. No significant central canal narrowing is seen. L2-L3: The disc height is relatively well preserved. Mac VIII bulge Mild facet joint hypertrophy is seen. Moderate bilateral neural foraminal narrowing is seen. Mild central canal narrowing is seen. L3-L4: There is at least moderate loss of disc height, which is more prominent on the right than on the left. Endplate irregularity and sclerosis can be seen. At least moderate disc bulge is seen. There is a superimposed central disc protrusion. Bridging endplate osteophytes are seen on the right side. Moderate to severe bilateral neural foraminal narrowing can be seen. Mild to moderate central canal narrowing is seen L4-L5: The disc height is relatively well preserved. At least moderate disc bulge is seen, which is eccentric to the right. At least moderate facet hypertrophy can be seen. There is at least moderate right-sided and [id number] left-sided neural foraminal narrowing. Moderate central canal narrowing is seen. L5-S1: The disc height is relatively well preserved. At least moderate disc bulge is seen, which is eccentric to the right. Moderate prominent facet hypertrophy can be seen. At least moderate bilateral neural foraminal narrowing can be seen, left worse than right. Mild central canal narrowing is seen. Soft tissues: No retroperitoneal masses or hematomas. Visualized aorta is normal in caliber. Bariatric surgery can be seen. Cholecystectomy clips are seen. A normal appendix is incidentally noted. IMPRESSION: Multiple levels of lumbar spine degenerative change are seen, which are overall worst inferiorly. The degenerative changes are progressed compared to 2017. If it would be helpful for clinical management decision making, please consider a dedicated, scheduled lumbar spine MRI for further evaluation (assuming that there is no contraindication). Additional findings: Bariatric surgery Cholecystectomy Normal appendix Dictated by: Beto Kasper M.D. on 12/24/2022 at 17:51 Approved by: Beto Kasper M.D. on 12/24/2022 at 17:57
[2022-12-24] MEDS: CYCLOBENZAPRINE 10 MG PREPACK 1 BOTTLE MISC (21:09)
[2022-12-24] MEDS: HYDROCODONE/ACET 5/325 PREPACK 1 BOTTLE MISC (21:09)
[2022-12-24 21:12] VITALS: BP 149/95; PULSE 64; RESP 16; O2SAT 99
== END 2022-12-24 21:12 | disposition home or self-care (01) ==
PROVIDERS: Emergency Provider Emergency Medicine; Family Provider Internal Medicine; PCP Student in an Organized Health Care Education/Training Program
DX: M54.50 Low back pain, unspecified (principal); X50.0XXA Overexertion from strenuous movement or load, initial encounter; Y99.0 Civilian activity done for income or pay
CPT/HCPCS: 72131; 99281; 99284

== ENCOUNTER → 2023-02-28 13:02 | Outpatient (CLI) | payer MEDICARE, OTHER, SELFPAY ==
[2021-10-19 17:19] VITALS: BMI 34.3
--- NOTE | 2023-02-28 | DI.MG.S_ITS ---
BILATERAL DIGITAL DIAGNOSTIC MAMMOGRAM 3D/2D: 02/28/2023 CLINICAL: Size discrepancy. Comparison is made to exams dated: 07/12/2022 mammogram, 03/28/2021 mammogram - [facility], and 08/29/2018 mammogram - [facility]. There are scattered areas of fibroglandular density in both breasts (category b / 25%-50% glandular tissue). There are stable benign post operative findings in the right breast. No significant masses, calcifications, or other findings are seen in either breast. IMPRESSION: INCOMPLETE: NEEDS ADDITIONAL IMAGING EVALUATION There is no abnormality seen in the right breast to correspond with the palpable abnormality and redness in the inferior aspect, however, ultrasound is recommended. Based on the Tyrer Cuzick model (a risk assessment model) the patient's lifetime risk is 4.4% and her 10 year risk is 3.9%. According to the ACR, ACS, and NCCN guidelines, an annual breast MRI exam along with mammogram is recommended if the patient's lifetime risk is 20% or greater. This exam was interpreted at Station ID: [id number]. NOTE: For mammograms, a report in lay terms will be sent to the patient. Approximately 15% of breast malignancies will not be visualized mammographically. In the management of a palpable breast mass, a negative mammogram must not discourage biopsy of a clinically suspicious lesion. Electronically Signed By: Ki Diaz M.D. ar/:02/28/2023 15:29:49 ACR BI-RADS Category 0: Incomplete [id number]
--- NOTE | 2023-02-28 | DI.US.S_ITS ---
LIMITED ULTRASOUND OF RIGHT BREAST: 02/28/2023 CLINICAL: Swelling, skin discoloration 6:00-lateral. Comparison is made to exams dated: 02/28/2023 mammogram - [facility], 07/12/2022 mammogram, 03/28/2021 mammogram - [facility], and 08/29/2018 mammogram - [facility]. Real-time ultrasound of the right breast 7-8 o'clock region was performed. Bhardwaj scale images of the real-time examination were reviewed. No significant abnormalities were seen sonographically in the right breast. IMPRESSION: NEGATIVE There is no sonographic evidence of malignancy. There is no abnormality seen in the right breast to correspond with the palpable abnormality and redness, however, clinical followup is recommended. Return to annual mammogram screening schedule is recommended. Future imaging is recommended as follows: 07/13/2023 screening mammogram. This exam was interpreted at Station ID: [id number]. Electronically Signed By: Ki green/arnaud:02/28/2023 15:33:03 letter sent: Clinical Evaluation Ultrasound BI-RADS: 1 Negative
== END ==
PROVIDERS: Family Provider Internal Medicine; PCP Student in an Organized Health Care Education/Training Program; Referring Provider Physician Assistant; Visit Provider Physician Assistant
DX: N65.0 Deformity of reconstructed breast (principal); R92.2 Inconclusive mammogram
CPT/HCPCS: 76642; 77066; G0279

== ENCOUNTER 2023-06-15 06:30 | Emergency (ER) | payer MEDICARE, OTHER, SELFPAY ==
[2021-10-19 17:19] VITALS: BMI 34.3
[2023-06-15] VITALS (7 sets, daily range): BP systolic 138–172; BP diastolic 60–90; PULSE 59–61; RESP 17–24; TEMP 36.4–36.6; O2SAT 92–99; BMI 34.7
--- NOTE | 2023-06-15 06:36 | ED_ITS ---
HPI - General Adult <Sydnee Paul MD - Last Filed: 07/16/23 00:55> General Chief complaint: Extremity Problem,Nontraumatic Stated complaint: rt arm pain, vomiting Time Seen by Provider: 06/15/23 06:36 History of Present Illness HPI narrative: 73-year-old woman with a history of coronary artery disease post catheterization with access through the right wrist 2 days ago, pacemaker, hypertension, hypothyroidism, COPD, anxiety and depression presents with severe pain in the right arm with the entire arm swollen. She describes the pain is so bad that she is having trouble focusing and it is making her significantly nauseated. She states that the catheterization was done at [facility] and she did not need a stent at the time. She is currently on apixaban for chronic atrial fibrillation. She is not had fevers, cough, chills. No abdominal pain. She is not complaining of chest pain or palpitations. Related Data Home Medications Medication Instructions Recorded Confirmed levothyroxine 88 mcg tablet 88 mcg PO QAM ##0 02/06/12 05/01/22 valsartan 80 mg tablet 80 mg PO DAILY ##0 02/06/12 05/01/22 apixaban 5 mg tablet (Eliquis) 5 mg PO DAILY 04/05/21 05/01/22 carboxymethylcellulose sodium 0.5 2 drp EYE-BOTH BID PRN Dry Eyes 04/05/21 05/01/22 % eye drops in a dropperette (Refresh Plus) diclofenac sodium 1 % topical gel 2 g topical QID PRN Pain (Scale 04/05/21 05/01/22 Score 1-3) pantoprazole 40 mg tablet,delayed 40 mg PO BID 04/05/21 05/01/22 release sotalol 80 mg tablet 80 mg PO BID 04/05/21 05/01/22 fluticasone 100 mcg-salmeterol 50 1 inh inhalation BID 05/01/22 05/01/22 mcg/dose blistr powdr for inhalation (Advair Diskus) promethazine 25 mg tablet 25 mg PO TID PRN nausea/vomiting 05/01/22 05/01/22 sulfamethoxazole 800 1 tab PO BID 05/01/22 05/01/22 mg-trimethoprim 160 mg tablet Previous Rx's Medication Instructions Recorded lidocaine 5 % topical patch 1 patch topical DAILY PRN pain #15 11/02/19 ea hydromorphone 2 mg tablet 1 mg (1/2 x 2 mg) PO Q8H PRN pain 07/06/22 #7 tabs ondansetron 4 mg disintegrating 4 mg PO Q8H PRN nausea and 07/06/22 tablet vomiting #10 tabs phenazopyridine 200 mg tablet 200 mg PO QPC bladder pain 6 doses 07/06/22 (Pyridium) #7 tabs polyethylene glycol 3350 17 17 g PO DAILY #119 grams 07/06/22 gram/dose oral powder (Miralax) tamsulosin 0.4 mg capsule 0.4 mg PO BEDTIME PRN ureteral 07/06/22 obstruction #14 caps fluconazole 200 mg tablet 200 mg PO DAILY #14 tabs 07/11/22 (Diflucan) cyclobenzaprine 10 mg tablet 10 mg PO TID PRN muscle spasm #14 10/02/22 tabs hydrocodone 5 mg-acetaminophen 325 1 tab PO Q4-6H PRN pain #10 tabs 10/02/22 mg tablet cyclobenzaprine 10 mg tablet 10 mg PO TID PRN muscle spasm #14 10/09/22 tabs cyclobenzaprine 10 mg tablet 10 mg PO TID PRN muscle spasm #14 12/24/22 tabs hydrocodone 5 mg-acetaminophen 325 1 tab PO Q4-6H PRN pain #10 tabs 12/24/22 mg tablet hydrocodone 5 mg-acetaminophen 325 1 tab PO Q6H PRN pain #14 tabs 06/15/23 mg tablet Allergies Allergy/AdvReac Type Severity Reaction Status Date / Time codeine Allergy Intermediate Rash Verified 10/09/22 18:57 celecoxib [CELECOXIB] Allergy Unknown Verified 10/09/22 18:57 lactobacillus [LACTOBACILLUS] Allergy Unknown Verified 10/09/22 18:57 morphine [MORPHINE] Allergy Unknown Verified 10/09/22 18:57 oxycodone [OXYCODONE] Allergy Unknown Verified 10/09/22 18:57 Iodine and Iodide Containing Allergy Verified 10/09/22 18:57 Produc Review of Systems <Sydnee Paul MD - Last Filed: 07/16/23 00:55> Review of Systems Narrative: Pertinent positive and negative findings as per HPI Patient History <Sydnee Paul MD - Last Filed: 07/16/23 00:55> Medical History Coronary artery disease Wears glasses Sarcoidosis (~1978) COPD (chronic obstructive pulmonary disease) (~2018) Anxiety and depression (~1996) Headache (~2018) Chronic back pain (~2012) GERD (gastroesophageal reflux disease) (~2009) Hypothyroidism Hypertension (~1995) Uterine mass Endometrial hyperplasia Postmenopausal bleeding Surgical History (Updated 06/30/23 @ 00:00 by ) Anesthesia History of breast lift (~2012) History of abdominoplasty (~2012) History of cataract removal with insertion of prosthetic lens (~2018) Status post surgery (04/09/15) History of gastric bypass (~2009) Presence of cardiac pacemaker (~2009) History of knee replacement History of knee replacement Status post breast lumpectomy History of carpal tunnel repair Status post dilation and curettage Status post cholecystectomy (~1979) Family History Father Cancer Brother Cancer Brother History of heart disease Hypertension Stroke Sister Cancer Social History household members: friend(s) Smoking Status: Never smoker alcohol intake: never Smoking Status: Never smoker alcohol intake frequency: holidays/special occasions only Substance Use Type: does not use Exam <Sydnee Paul MD - Last Filed: 07/16/23 00:55> Narrative Exam Narrative: General: Chronically ill-appearing, pale obviously uncomfortable unable to participate in history secondary to pain HEENT: Moist mucous membranes, normal sclera with reactive pupils, Neck: No JVD, supple Respiratory: Lungs are clear to auscultation, no wheezing no rales no rhonchi. Full and symmetrical air movement Cardiac: Regular rate and rhythm no murmurs no bruits Abdomen: Soft, nontender, good bowel tones, no flank pain Skin: Pale but not diaphoretic Neurologic: Grossly neurologically intact with no obvious asymmetries or abnormalities Extremities: Right upper extremity is edematous and quite tender but neurovascularly intact. Catheterization access site right radial artery. Multiple bruises over her left antecubital fossa secondary to recent IV catheters Psych: Cooperative, appropriate insight and affect Initial Vital Signs Initial Vital Signs: Vital Signs Temperature 97.9 F 06/15/23 06:42 Pulse Rate 60 06/15/23 06:42 Respiratory Rate 19 06/15/23 06:42 Blood Pressure 172/90 H 06/15/23 06:42 Pulse Oximetry 99 06/15/23 06:42 Oxygen Delivery Method Room Air 06/15/23 06:42 <Shira Santoro DO - Last Filed: 06/15/23 10:00> Initial Vital Signs Initial Vital Signs: Vital Signs Temperature 97.9 F 06/15/23 06:42 Pulse Rate 60 06/15/23 06:42 Respiratory Rate 19 06/15/23 06:42 Blood Pressure 172/90 H 06/15/23 06:42 Pulse Oximetry 99 06/15/23 06:42 Oxygen Delivery Method Room Air 06/15/23 06:42 Course <Sydnee Paul MD - Last Filed: 07/16/23 00:55> Orders Ordered: Discontinued Medications Hydromorphone HCl (Hydromorphone 0.5 Mg Inj) 0.5 mg IV Q15MIN PRN PRN Reason: Pain, Last Admin: 06/15/23 07:11 Dose: 0.5 mg Documented By: ORA Hydromorphone HCl (Hydromorphone 0.5 Mg Inj) 0.5 mg IV NOW ONE Stop: 06/15/23 08:13 Last Admin: 06/15/23 08:24 Dose: 0.5 mg Documented By: ORA Vancomycin HCl (Vancomycin) 1,250 mg in 250 mls @ 250 mls/hr IV NOW ONE Stop: 06/15/23 09:10 Last Infusion: 06/15/23 09:38 Dose: Infused Documented By: Admin: 06/15/23 08:28 Dose: 250 mls/hr Documented By: ORA Ondansetron HCl (Ondansetron 4 Mg/2 Ml Inj) 4 mg IV NOW ONE Stop: 06/15/23 07:03 Last Admin: 06/15/23 07:11 Dose: 4 mg Documented By: ORA Vital Signs Vital signs: Vital Signs - 8 hr 06/15/23 06:42 06/15/23 07:24 06/15/23 07:30 Temperature 97.9 F Pulse Rate 60 60 60 Respiratory Rate 17 Blood Pressure 172/90 H Pulse Oximetry 99 Oxygen Delivery Method Room Air 06/15/23 08:00 06/15/23 08:28 06/15/23 08:28 Temperature Pulse Rate 59 L 61 Respiratory Rate 20 18 Blood Pressure 138/60 Pulse Oximetry 93 Oxygen Delivery Method 06/15/23 08:30 06/15/23 09:51 Temperature 97.6 F Pulse Rate 60 60 Respiratory Rate 18 20 Blood Pressure 146/67 H Pulse Oximetry 92 95 Oxygen Delivery Method Room Air <Shira Santoro DO - Last Filed: 06/15/23 10:00> Orders Ordered: Discontinued Medications Hydromorphone HCl (Hydromorphone 0.5 Mg Inj) 0.5 mg IV Q15MIN PRN PRN Reason: Pain, Last Admin: 06/15/23 07:11 Dose: 0.5 mg Documented By: ORA Hydromorphone HCl (Hydromorphone 0.5 Mg Inj) 0.5 mg IV NOW ONE Stop: 06/15/23 08:13 Last Admin: 06/15/23 08:24 Dose: 0.5 mg Documented By: ORA Vancomycin HCl (Vancomycin) 1,250 mg in 250 mls @ 250 mls/hr IV NOW ONE Stop: 06/15/23 09:10 Last Infusion: 06/15/23 09:38 Dose: Infused Documented By: Admin: 06/15/23 08:28 Dose: 250 mls/hr Documented By: ORA Ondansetron HCl (Ondansetron 4 Mg/2 Ml Inj) 4 mg IV NOW ONE Stop: 06/15/23 07:03 Last Admin: 06/15/23 07:11 Dose: 4 mg Documented By: ORA Vital Signs Vital signs: Vital Signs - 8 hr 06/15/23 06:42 06/15/23 07:24 06/15/23 07:30 Temperature 97.9 F Pulse Rate 60 60 60 Respiratory Rate 19 24 17 Blood Pressure 172/90 H Pulse Oximetry 99 Oxygen Delivery Method Room Air 06/15/23 08:00 06/15/23 08:28 06/15/23 08:28 Temperature Pulse Rate 59 L 61 Respiratory Rate 20 18 Blood Pressure 138/60 Pulse Oximetry 93 Oxygen Delivery Method 06/15/23 08:30 06/15/23 09:51 Temperature 97.6 F Pulse Rate 60 60 Respiratory Rate 18 20 Blood Pressure 146/67 H Pulse Oximetry 92 95 Oxygen Delivery Method Room Air Medical Decision Making <Sydnee Paul MD - Last Filed: 07/16/23 00:55> Lab Data 06/15/23 07:10 06/15/23 07:10 Labs: Lab Results 06/15/23 06/15/23 Range/Units 07:10 08:24 WBC 12.7 H (4.5-11.0) X10^3/uL RBC 4.62 (4.0-5.2) X10^6/uL Hgb 11.8 L (12.0-16.0) g/dL Hct 37.3 (36-46) % MCV 80.8 (80-100) fL MCH 25.6 L (26-34) PG MCHC 31.6 (30-36) % RDW 16.5 H (11.6-14.8) % Plt Count 207 (150-400) X10^3/uL Neut % (Auto) 83.3 H (50-75) % Lymph % (Auto) 8.0 L (25-40) % Lawrence % (Auto) 7.0 (3-14) % Eos % (Auto) 1.3 L (2-4) % Baso % (Auto) 0.4 (0-2) % Neut # (Auto) 17707 H (3720-8370) /uL Lymph # (Auto) 1000 L (1827-4007) /uL Lawrence # (Auto) 900 (0-900) /uL Eos # (Auto) 200 (0-450) /uL Baso # (Auto) 0 (0-100) /uL Sodium 136 L (137-145) mmol/L Potassium 4.0 (3.4-5.1) mmol/L Chloride 105 (98-107) mmol/L Carbon Dioxide 23 (22-32) mmol/L BUN 19 H (7-17) mg/dL Creatinine 0.88 (0.52-1.04) mg/dL Estimated GFR > 60 (>60) mL/min BUN/Creatinine Ratio 21.6 (6-22) Glucose 145 H (80-110) mg/dL Lactate 1.1 (0.7-2.1) mmol/L Calcium 9.0 (8.4-10.2) mg/dL Total Bilirubin 1.2 (0.2-1.3) mg/dL AST 19 (14-36) IU/L ALT 15 (<35) IU/L Alkaline Phosphatase 137 H (38-126) U/L Total Protein 7.0 (6.3-8.2) g/dL Albumin 3.7 (3.5-5.0) g/dL Globulin 3.3 (1.7-4.1) g/dL Albumin/Globulin Ratio 1.1 (1.0-2.8) Procalcitonin 0.05 (<0.5) ng/mL <Shira C Maude, DO - Last Filed: 06/15/23 10:00> Lab Data Labs: Lab Results 06/15/23 06/15/23 Range/Units 07:10 08:24 WBC 12.7 H (4.5-11.0) X10^3/uL RBC 4.62 (4.0-5.2) X10^6/uL Hgb 11.8 L (12.0-16.0) g/dL Hct 37.3 (36-46) % MCV 80.8 (80-100) fL MCH 25.6 L (26-34) PG MCHC 31.6 (30-36) % RDW 16.5 H (11.6-14.8) % Plt Count 207 (150-400) X10^3/uL Neut % (Auto) 83.3 H (50-75) % Lymph % (Auto) 8.0 L (25-40) % Lawrence % (Auto) 7.0 (3-14) % Eos % (Auto) 1.3 L (2-4) % Baso % (Auto) 0.4 (0-2) % Neut # (Auto) 41496 H (5764-5225) /uL Lymph # (Auto) 1000 L (6587-5677) /uL Lawrence # (Auto) 900 (0-900) /uL Eos # (Auto) 200 (0-450) /uL Baso # (Auto) 0 (0-100) /uL Sodium 136 L (137-145) mmol/L Potassium 4.0 (3.4-5.1) mmol/L Chloride 105 (98-107) mmol/L Carbon Dioxide 23 (22-32) mmol/L BUN 19 H (7-17) mg/dL Creatinine 0.88 (0.52-1.04) mg/dL Estimated GFR > 60 (>60) mL/min BUN/Creatinine Ratio 21.6 (6-22) Glucose 145 H (80-110) mg/dL Lactate 1.1 (0.7-2.1) mmol/L Calcium 9.0 (8.4-10.2) mg/dL Total Bilirubin 1.2 (0.2-1.3) mg/dL AST 19 (14-36) IU/L ALT 15 (<35) IU/L Alkaline Phosphatase 137 H (38-126) U/L Total Protein 7.0 (6.3-8.2) g/dL Albumin 3.7 (3.5-5.0) g/dL Globulin 3.3 (1.7-4.1) g/dL Albumin/Globulin Ratio 1.1 (1.0-2.8) Procalcitonin 0.05 (<0.5) ng/mL Imaging Data US - DVT: Radiologist's Impression: Close Peripheral Vascular Ultrasound (Signed) Charmaine Simons - 06/15/23 [place] [address] Ultrasound Report Signed Patient: Deneen Gong MR#: [id number] : 1950 Acct:[id number] Age/Sex: 73 / F Date of Service: 06/15/23 Loc: ED Accession Number: [id number] Procedure: US periph venous up extrem rt Ordering Provider: Sydnee Paul MD PROCEDURE: US PERIPH VENOUS UP EXTREM RT INDICATIONS: SEVERE ARM PAIN AND EDEMA. TECHNIQUE: Real-time imaging, as well as color and pulse Doppler interrogation, was performed of the upper extremity deep veins from the inferior neck to the antecubital fossa. COMPARISON: None. FINDINGS: The internal jugular vein, visualized portions of the subclavian vein, axillary, and brachial veins are free of intraluminal thrombus. Where physically possible, the veins are normally compressible. Color and pulse Doppler demonstrate normal intraluminal flow, with expected phasicity and pulsatility. Additional scanning of the cephalic and basilic veins of the superficial system demonstrates normal compressibility, without thrombus. IMPRESSION: No findings of upper extremity deep venous thrombosis can be seen. Dictated by: Charmaine Simons M.D. on 06/15/2023 at 7:54 Approved by: Charmaine Simons M.D. on 06/15/2023 at 7:54 [facility] Narrative Medical decision making narrative: Patient signed out to myself by Dr. Paul. Patient seen and evaluated by myself. Patient had CBC that was 12.7, hemoglobin 11.8 consistent with priors, platelets are 207 leftward shift. CMP shows sodium 136 normal electrolytes BUN 19 normal creatinine and alk-phos of 137 but otherwise normal LFTs. DVT ultrasound was negative. No obvious fluid collections noted. Patient noted that she was doing well postoperatively until last night around midnight was woken up with pain that was radiating up her arm. Patient states pain is significantly improved with 1st dose of pain medication but still somewhat present at the wrist. She is multiple narcotic allergies was given additional dose. She does have some redness and swelling around the site, there is small amount of bruising she states it has not increased or worsened she describes it as minimal. She does have pain with movement of her fingers but can go through entire range of motion and does not have exquisite pain, no sausage fingers or knavel signs. Potential for infection at the site she has had erythema posteriorly over the dorsum of the wrist and the hand was swelling on that side as well. Blood culture, lactate and procalcitonin were added on. Both procalcitonin and lactate are negative. Blood cultures pending. Patient was covered with a dose of vancomycin. Consultation with patient's Cardiology team. Spoke with Dr. Caraballo. Feels comfortable with plan, reviewed we did ultrasound the area no DVT. Plan to cover with oral antibiotics, pain medications since discharge home appears to be vascularly intact but does appear to have some potential infection. The patient's symptoms are persisting he would have her call Sunday morning to the office to be seen sooner before her planned office visit in August. Discharge Plan Departure Patient Disposition: Home Clinical Impression: Cellulitis of right wrist, S/P cardiac catheterization Activity Restrictions/Additional Instructions: I spoke with your cardiology team, if your symptoms are not resolved by Sunday please call the office to set up a follow up. Take antibiotics until completed. Take pain medication as prescribed. This medication can make you sleepy do not drive, perform hazardous activities or make any major decisions while taking it. This medication will make you constipated please take a stool softener once to twice daily until stools are soft and regular. Prescription sent to Please return for fevers, rapidly worsening redness, swelling, increasing pain, new numbness, tingling or extremities or other new or concerning changes. Prescriptions: New hydrocodone-acetaminophen 5-325 mg tablet 1 tab PO Q6H PRN (Reason: pain) Qty: 14 0RF No Action valsartan 80 mg Tablet 80 mg PO DAILY Qty: 0 levothyroxine 88 MCG tablet 88 mcg PO QAM Qty: 0 sotalol 80 mg tablet 80 mg PO BID Eliquis 5 mg tablet 5 mg PO DAILY pantoprazole 40 mg tablet,delayed release (DR/EC) 40 mg PO BID Refresh Plus 0.5 % dropperette 2 drp EYE-BOTH BID PRN (Reason: Dry Eyes) diclofenac sodium 1 % gel 2 g topical QID PRN (Reason: Pain (Scale Score 1-3)) Rx Instructions: apply to single elbow, wrist or hand; for hand includes palm/fingers/back of hand lidocaine 5 % adhesive patch,medicated 1 patch TOP DAILY PRN (Reason: pain) Qty: 15 0RF Rx Instructions: leave on most painful area for up to 12 hrs phenazopyridine [Pyridium] 200 mg tablet 200 mg PO QPC Qty: 7 0RF ondansetron 4 mg tablet,disintegrating 4 mg PO Q8H PRN (Reason: nausea and vomiting) Qty: 10 0RF tamsulosin 0.4 mg capsule 0.4 mg PO BEDTIME PRN (Reason: ureteral obstruction) Qty: 14 0RF hydromorphone 2 mg tablet 1 mg PO Q8H PRN (Reason: pain) Qty: 7 0RF polyethylene glycol 3350 [Miralax] 17 gram/dose powder 17 g PO DAILY Qty: 119 0RF fluconazole [Diflucan] 200 mg tablet 200 mg PO DAILY Qty: 14 0RF hydrocodone-acetaminophen 5-325 mg tablet 1 tab PO Q4-6H PRN (Reason: pain) Qty: 10 0RF cyclobenzaprine 10 mg tablet 10 mg PO TID PRN (Reason: muscle spasm) Qty: 14 0RF cyclobenzaprine 10 mg tablet 10 mg PO TID PRN (Reason: muscle spasm) Qty: 14 0RF cyclobenzaprine 10 mg tablet 10 mg PO TID PRN (Reason: muscle spasm) Qty: 14 0RF hydrocodone-acetaminophen 5-325 mg tablet 1 tab PO Q4-6H PRN (Reason: pain) Qty: 10 0RF promethazine 25 mg Tablet 25 mg PO TID PRN (Reason: nausea/vomiting) fluticasone propion-salmeterol [Advair Diskus] 100-50 mcg/dose blister with device 1 inh INHALATION BID sulfamethoxazole-trimethoprim 800-160 mg tablet 1 tab PO BID Rx Instructions: started 04/25 x 14 days Referrals: Verna Musa PA-C [Primary Care Provider] - Stand Alone Forms: Patient Portal/API
--- NOTE | 2023-06-15 06:56 | DI.US.S_ITS ---
PROCEDURE: US PERIPH VENOUS UP EXTREM RT INDICATIONS: SEVERE ARM PAIN AND EDEMA. TECHNIQUE: Real-time imaging, as well as color and pulse Doppler interrogation, was performed of the upper extremity deep veins from the inferior neck to the antecubital fossa. COMPARISON: None. FINDINGS: The internal jugular vein, visualized portions of the subclavian vein, axillary, and brachial veins are free of intraluminal thrombus. Where physically possible, the veins are normally compressible. Color and pulse Doppler demonstrate normal intraluminal flow, with expected phasicity and pulsatility. Additional scanning of the cephalic and basilic veins of the superficial system demonstrates normal compressibility, without thrombus. IMPRESSION: No findings of upper extremity deep venous thrombosis can be seen. Dictated by: Charmaine Simons M.D. on 06/15/2023 at 7:54 Approved by: Charmaine Simons M.D. on 06/15/2023 at 7:54
[2023-06-15] MEDS: HYDROMORPHONE 0.5 MG INJ IV ×2 (07:11→08:24)
[2023-06-15] MEDS: ONDANSETRON 4 MG/2 ML INJ IV (07:11)
[2023-06-15 07:21] LABS: Add Manual Diff / Slide Review NO; Basophils Absolute Auto 0 /uL (0-100); Basophils Percent Auto 0.4 % (0-2); Eosinophils Absolute Auto 200 /uL (0-450); Eosinophils Percent Auto 1.3 % (2-4); Hematocrit 37.3 % (36-46); Hemoglobin 11.8 g/dL (12.0-16.0); Lymphocytes Absolute Auto 1000 /uL (1100-4500); Mean Corpuscular HGB Conc 31.6 % (30-36); Mean Corpuscular Hemoglobin 25.6 PG (26-34); Mean Corpuscular Volume 80.8 fL (80-100); Monocytes Absolute Auto 900 /uL (0-900); Neutrophils Absolute Auto 10600 /uL (1500-7000); Neutrophils Percent Auto 83.3 % (50-75); Platelet Count 207 X10^3/uL (150-400); Red Blood Cell Count 4.62 X10^6/uL (4.0-5.2); Red Cell Distribution Width 16.5 % (11.6-14.8); White Blood Cell Count 12.7 X10^3/uL (4.5-11.0)
[2023-06-15 07:33] LABS: Alanine Aminotransferase 15 IU/L (<35); Albumin 3.7 g/dL (3.5-5.0); Albumin Globulin Ratio 1.1 (1.0-2.8); Alkaline Phosphatase 137 U/L (38-126); Aspartate Aminotransferase 19 IU/L (14-36); BUN Creatinine Ratio 21.6 (6-22); Bilirubin Total 1.2 mg/dL (0.2-1.3); Blood Urea Nitrogen 19 mg/dL (7-17); Carbon Dioxide 23 mmol/L (22-32); Chloride 105 mmol/L (98-107); Estimated Glomerular Filt Rate > 60 mL/min (>60); Globulin 3.3 g/dL (1.7-4.1); Glucose 145 mg/dL (80-110); HEMOLYSIS < 15 (0-50); Sodium 136 mmol/L (137-145)
[2023-06-15 08:22] LABS: Lactate (Lactic Acid) 1.1 mmol/L (0.7-2.1)
[2023-06-15] MEDS: VANCOMYCIN 1,250 MG/250 ML PIGGYBACK 250 MG IV (08:28)
[2023-06-15 08:39] LABS: Procalcitonin 0.05 ng/mL (<0.5)
== END 2023-06-15 09:51 | disposition home or self-care (01) ==
PROVIDERS: Emergency Medicine; Emergency Provider Emergency Medicine; Family Provider Internal Medicine; PCP Physician Assistant
DX: L03.113 Cellulitis of right upper limb (principal); Z95.0 Presence of cardiac pacemaker; Z79.01 Long term (current) use of anticoagulants
CPT/HCPCS: 36415; 80053; 83605; 84145; 85025; 87040; 93971; 96365; 96375; 96376; 99284; J1170; J2405

== ENCOUNTER 2023-06-22 20:06 | Emergency (ER) | payer OTHER, SELFPAY ==
[2021-10-19 17:19] VITALS: BMI 34.3
[2023-06-22 20:09] VITALS: BP 141/79; PULSE 72; RESP 20; TEMP 36.9; O2SAT 99; BMI 34.7
--- NOTE | 2023-06-22 20:22 | DI.RAD.S_ITS ---
PROCEDURE: XR HUMERUS LT 2V INDICATIONS: pain after fall TECHNIQUE: 2 views of the humerus were acquired. COMPARISON: [facility], CR, XR SHOULDER LT MIN 2V, 06/22/2023, 20:29. FINDINGS: Bones: No fractures or dislocations. No suspicious bony lesions. Soft tissues: No suspicious soft tissue calcifications. Left chest generator device. IMPRESSION: No acute bony abnormality. Dictated by: Kar Mckenna M.D. on 06/22/2023 at 22:37 Approved by: Kar Mckenna M.D. on 06/22/2023 at 22:38
--- NOTE | 2023-06-22 20:22 | DI.RAD.S_ITS ---
PROCEDURE: XR SHOULDER LT MIN 2V INDICATIONS: pain after fall TECHNIQUE: 3 views of the shoulder were acquired. COMPARISON: [facility], CR, XR HUMERUS LT 2V, 06/22/2023, 20:29. FINDINGS: Bones: No fractures or dislocations. Mild degenerative changes. No suspicious bony lesions. Visualized ribs appear intact. Soft tissues: No suspicious soft tissue calcifications. Left pacemaker. IMPRESSION: No acute bony abnormality. Dictated by: Kar Mckenna M.D. on 06/22/2023 at 22:38 Approved by: Kar Mckenna M.D. on 06/22/2023 at 22:39
--- NOTE | 2023-06-22 20:33 | ED_ITS ---
HPI - Fall General Chief Complaint: Fall Stated Complaint: fell Time Seen by Provider: 06/22/23 20:22 Source: patient and family Mode of arrival: Wheelchair History of Present Illness HPI Narrative: Patient is a 73-year-old female. Is on anticoagulation. Does have a pacemaker in place. Has chronic back pain. Recent heart catheterization. Recent lumbar steroid injection. States that she was getting out of her car this evening. She is protecting her right arm because she recently had a heart catheterization. She had a sudden intense pain in her lower back causing her legs to give out. She then fell landing on her left shoulder and left arm. This did happen earlier today. She did not hit her head. No loss of consciousness. No lower extremity injuries. She is difficulty with moving her left shoulder but is able to do so. Related Data Home Medications Medication Instructions Recorded Confirmed levothyroxine 88 mcg tablet 88 mcg PO QAM ##0 02/06/12 05/01/22 valsartan 80 mg tablet 80 mg PO DAILY ##0 02/06/12 05/01/22 apixaban 5 mg tablet (Eliquis) 5 mg PO DAILY 04/05/21 05/01/22 carboxymethylcellulose sodium 0.5 2 drp EYE-BOTH BID PRN Dry Eyes 04/05/21 05/01/22 % eye drops in a dropperette (Refresh Plus) diclofenac sodium 1 % topical gel 2 g topical QID PRN Pain (Scale 04/05/21 05/01/22 Score 1-3) pantoprazole 40 mg tablet,delayed 40 mg PO BID 04/05/21 05/01/22 release sotalol 80 mg tablet 80 mg PO BID 04/05/21 05/01/22 fluticasone 100 mcg-salmeterol 50 1 inh inhalation BID 05/01/22 05/01/22 mcg/dose blistr powdr for inhalation (Advair Diskus) promethazine 25 mg tablet 25 mg PO TID PRN nausea/vomiting 05/01/22 05/01/22 sulfamethoxazole 800 1 tab PO BID 05/01/22 05/01/22 mg-trimethoprim 160 mg tablet Previous Rx's Medication Instructions Recorded lidocaine 5 % topical patch 1 patch topical DAILY PRN pain #15 11/02/19 ea hydromorphone 2 mg tablet 1 mg (1/2 x 2 mg) PO Q8H PRN pain 07/06/22 #7 tabs ondansetron 4 mg disintegrating 4 mg PO Q8H PRN nausea and 07/06/22 tablet vomiting #10 tabs phenazopyridine 200 mg tablet 200 mg PO QPC bladder pain 6 doses 07/06/22 (Pyridium) #7 tabs polyethylene glycol 3350 17 17 g PO DAILY #119 grams 07/06/22 gram/dose oral powder (Miralax) tamsulosin 0.4 mg capsule 0.4 mg PO BEDTIME PRN ureteral 07/06/22 obstruction #14 caps fluconazole 200 mg tablet 200 mg PO DAILY #14 tabs 07/11/22 (Diflucan) cyclobenzaprine 10 mg tablet 10 mg PO TID PRN muscle spasm #14 10/02/22 tabs hydrocodone 5 mg-acetaminophen 325 1 tab PO Q4-6H PRN pain #10 tabs 10/02/22 mg tablet cyclobenzaprine 10 mg tablet 10 mg PO TID PRN muscle spasm #14 10/09/22 tabs cyclobenzaprine 10 mg tablet 10 mg PO TID PRN muscle spasm #14 12/24/22 tabs hydrocodone 5 mg-acetaminophen 325 1 tab PO Q4-6H PRN pain #10 tabs 12/24/22 mg tablet hydrocodone 5 mg-acetaminophen 325 1 tab PO Q6H PRN pain #14 tabs 06/15/23 mg tablet Allergies Allergy/AdvReac Type Severity Reaction Status Date / Time codeine Allergy Intermediate Rash Verified 10/09/22 18:57 celecoxib [CELECOXIB] Allergy Unknown Verified 10/09/22 18:57 lactobacillus [LACTOBACILLUS] Allergy Unknown Verified 10/09/22 18:57 morphine [MORPHINE] Allergy Unknown Verified 10/09/22 18:57 oxycodone [OXYCODONE] Allergy Unknown Verified 10/09/22 18:57 Iodine and Iodide Containing Allergy Verified 10/09/22 18:57 Produc Review of Systems Constitutional Constitutional: Reports system reviewed and no additional complaints, except as documented Musculoskeletal Musculoskeletal: Reports system reviewed and no additional complaints, except as documented Integumentary/Breasts Skin/Breast: Reports system reviewed and no additional complaints, except as documented Neurologic Neurologic: Reports system reviewed and no additional complaints, except as docu mented Hematologic/Lymphatic On Anticoagulants: Yes Patient History Medical History Coronary artery disease Wears glasses Sarcoidosis (~1978) COPD (chronic obstructive pulmonary disease) (~2018) Anxiety and depression (~1996) Headache (~2018) Chronic back pain (~2012) GERD (gastroesophageal reflux disease) (~2009) Hypothyroidism Hypertension (~1995) Uterine mass Endometrial hyperplasia Postmenopausal bleeding Surgical History (Updated 06/15/23 @ 08:42 by Shira Santoro DO) Anesthesia History of breast lift (~2012) History of abdominoplasty (~2012) History of cataract removal with insertion of prosthetic lens (~2018) Status post surgery (04/09/15) History of gastric bypass (~2009) Presence of cardiac pacemaker (~2009) History of knee replacement History of knee replacement Status post breast lumpectomy History of carpal tunnel repair Status post dilation and curettage Status post cholecystectomy (~1979) Family History Father Cancer Brother Cancer Brother History of heart disease Hypertension Stroke Sister Cancer Social History household members: friend(s) Smoking Status: Never smoker alcohol intake: never Smoking Status: Never smoker alcohol intake frequency: holidays/special occasions only Substance Use Type: does not use Exam Initial Vital Signs Initial Vital Signs: Vital Signs Temperature 98.4 F 06/22/23 20:09 Pulse Rate 72 06/22/23 20:09 Respiratory Rate 20 06/22/23 20:09 Blood Pressure 141/79 H 06/22/23 20:09 Pulse Oximetry 99 06/22/23 20:09 Oxygen Delivery Method Room Air 06/22/23 20:09 Const General: cooperative, comfortable and No ill appearing HENPR Head: normal to inspection Cardio Pulses: radial pulses present on the left Skin General: no rashes or lesions noted Neuro Sensory Exam: no sensory deficits noted Extrem Other: Left elbows unremarkable. Left wrist is unremarkable. Has discomfort with palp ation throughout the left shoulder. Is able to abduct and adduct but it is somewhat limited secondary to discomfort. Course Orders Ordered: ED Orders 06/22/23 20:22 XR humerus LT 2V Stat XR shoulder LT min 2V Stat Discontinued Medications Hydrocodone Bitart/Acetaminophen (Hydrocodone/Acet 5/325 Prepack) 1 bottle MISC DIRECTED ONE Stop: 06/22/23 23:10 Last Admin: 06/22/23 23:17 Dose: 1 bottle Vital Signs Vital signs: Vital Signs - 8 hr 06/22/23 20:09 Temperature 98.4 F Pulse Rate 72 Respiratory Rate 20 Blood Pressure 141/79 H Pulse Oximetry 99 Oxygen Delivery Method Room Air MDM - Fall Imaging Data Extremity x-ray #1: Radiologist's Impression: PROCEDURE: XR SHOULDER LT MIN 2V INDICATIONS: pain after fall TECHNIQUE: 3 views of the shoulder were acquired. COMPARISON: [facility], , XR HUMERUS LT 2V, 06/22/2023, 20:29. FINDINGS: Bones: No fractures or dislocations. Mild degenerative changes. No suspicious bony lesions. Visualized ribs appear intact. Soft tissues: No suspicious soft tissue calcifications. Left pacemaker. IMPRESSION: No acute bony abnormality. Extremity x-ray #2: Radiologist's Impression: PROCEDURE: XR HUMERUS LT 2V INDICATIONS: pain after fall TECHNIQUE: 2 views of the humerus were acquired. COMPARISON: [facility], , XR SHOULDER LT MIN 2V, 06/22/2023, 20:29. FINDINGS: Bones: No fractures or dislocations. No suspicious bony lesions. Soft tissues: No suspicious soft tissue calcifications. Left chest generator device. IMPRESSION: No acute bony abnormality. [facility] Narrative Medical decision making narrative: X-ray show no acute pathology however we did discuss the possibility of soft tissue injuries such as tendons ligaments or rotator cuff. Her activity is limited by her discomfort. No indication for splinting. She has an appointment with her L&I provider on Sunday. And then follow-up with her spine provider a couple days after that. No indication for further radiologic studies. Will discharge patient home with instructions for follow-up and a work note. She was given return precautions. She expressed understanding and agreement. Discharge Plan Departure Patient Disposition: Home Clinical Impression: Left shoulder strain, Lower back pain Instructions: DI for Low Back Pain, How To Perform RICE (Rest, Ice, Compress, Elevate) Activity Restrictions/Additional Instructions: I do recommend that you continue to take all of your medications as directed and keep all of your scheduled medical appointments. Keep your follow-up with your L&I provider next week. Return to the emergency department for new symptoms. Prescriptions: No Action valsartan 80 mg Tablet 80 mg PO DAILY Qty: 0 levothyroxine 88 MCG tablet 88 mcg PO QAM Qty: 0 sotalol 80 mg tablet 80 mg PO BID Eliquis 5 mg tablet 5 mg PO DAILY pantoprazole 40 mg tablet,delayed release (DR/EC) 40 mg PO BID Refresh Plus 0.5 % dropperette 2 drp EYE-BOTH BID PRN (Reason: Dry Eyes) diclofenac sodium 1 % gel 2 g topical QID PRN (Reason: Pain (Scale Score 1-3)) Rx Instructions: apply to single elbow, wrist or hand; for hand includes palm/fingers/back of hand lidocaine 5 % adhesive patch,medicated 1 patch TOP DAILY PRN (Reason: pain) Qty: 15 0RF Rx Instructions: leave on most painful area for up to 12 hrs phenazopyridine [Pyridium] 200 mg tablet 200 mg PO QPC Qty: 7 0RF ondansetron 4 mg tablet,disintegrating 4 mg PO Q8H PRN (Reason: nausea and vomiting) Qty: 10 0RF tamsulosin 0.4 mg capsule 0.4 mg PO BEDTIME PRN (Reason: ureteral obstruction) Qty: 14 0RF hydromorphone 2 mg tablet 1 mg PO Q8H PRN (Reason: pain) Qty: 7 0RF polyethylene glycol 3350 [Miralax] 17 gram/dose powder 17 g PO DAILY Qty: 119 0RF fluconazole [Diflucan] 200 mg tablet 200 mg PO DAILY Qty: 14 0RF hydrocodone-acetaminophen 5-325 mg tablet 1 tab PO Q4-6H PRN (Reason: pain) Qty: 10 0RF cyclobenzaprine 10 mg tablet 10 mg PO TID PRN (Reason: muscle spasm) Qty: 14 0RF cyclobenzaprine 10 mg tablet 10 mg PO TID PRN (Reason: muscle spasm) Qty: 14 0RF cyclobenzaprine 10 mg tablet 10 mg PO TID PRN (Reason: muscle spasm) Qty: 14 0RF hydrocodone-acetaminophen 5-325 mg tablet 1 tab PO Q4-6H PRN (Reason: pain) Qty: 10 0RF hydrocodone-acetaminophen 5-325 mg tablet 1 tab PO Q6H PRN (Reason: pain) Qty: 14 0RF promethazine 25 mg Tablet 25 mg PO TID PRN (Reason: nausea/vomiting) fluticasone propion-salmeterol [Advair Diskus] 100-50 mcg/dose blister with device 1 inh INHALATION BID sulfamethoxazole-trimethoprim 800-160 mg tablet 1 tab PO BID Rx Instructions: started 04/25 x 14 days Referrals: Verna Musa PA-C [Primary Care Provider] - Stand Alone Forms: Patient Portal/API, Work Release Note
[2023-06-22] MEDS: HYDROCODONE/ACET 5/325 PREPACK 1 BOTTLE MISC (23:17)
[2023-06-22 23:19] VITALS: BP 138/80; PULSE 72; RESP 18; O2SAT 99
== END 2023-06-22 23:20 | disposition home or self-care (01) ==
PROVIDERS: Emergency Provider Emergency Medicine; Family Provider Internal Medicine; PCP Physician Assistant
DX: S46.912A Strain of unspecified muscle, fascia and tendon at shoulder and upper arm level, left arm, initial encounter (principal); M54.50 Low back pain, unspecified; W18.30XA Fall on same level, unspecified, initial encounter; Z79.01 Long term (current) use of anticoagulants; Z95.0 Presence of cardiac pacemaker
CPT/HCPCS: 73030; 73060; 99281; 99283

== ENCOUNTER → 2023-09-17 06:39 | Outpatient (CLI) | payer MEDICARE, OTHER, SELFPAY ==
[2021-10-19 17:19] VITALS: BMI 34.3
--- NOTE | 2023-09-17 06:41 | DI.US.S_ITS ---
PROCEDURE: US PELVIC COMPLETE INDICATIONS: Right lower quadrant pain TECHNIQUE: Real-time scanning was performed of the pelvic organs, with image documentation. Additional endovaginal scanning was necessary due to incomplete visualization of the adnexal and endometrial structures by transabdominal scanning. COMPARISON: CT, CT KIDNEY URETER BLADDER (KUB), 07/06/2022, 18:17. [facility], US, US PELVIC COMPLETE, 04/05/2021, 15:27. FINDINGS: Uterus: Absent Ovaries: Absent Other: No pathologic free abdominal or pelvic fluid. Nonvisualization of the appendix. IMPRESSION: Uterus and ovaries are absent. No inflammatory change within the right lower quadrant. Appendix is not visualized. We strive to produce accurate, complete, and clear reports of imaging services. To assist us in improving patient care, this report was composed using standard report templates and voice recognition software. Therefore, it may contain abnormal punctuation, insertions and/or omissions. Occasional wrong-word or sound-alike substitutions may occur. Though we review the report and make efforts to correct it, we do recommend that the report be read carefully in proper context to recognize any text inaccuracies. Dictated by: Eden Owusu M.D. on 09/17/2023 at 13:34 Approved by: Eden Owusu M.D. on 09/17/2023 at 13:35
== END ==
LOC: US 06:40
PROVIDERS: Family Provider Internal Medicine; PCP Physician Assistant; Referring Provider Physician Assistant; Visit Provider Physician Assistant
DX: R10.31 Right lower quadrant pain (principal); Z90.722 Acquired absence of ovaries, bilateral; Z90.710 Acquired absence of both cervix and uterus
CPT/HCPCS: 76830; 76856

== ENCOUNTER → 2023-11-01 06:28 | Outpatient (CLI) | payer MEDICARE, OTHER, SELFPAY ==
[2021-10-19 17:19] VITALS: BMI 34.3
--- NOTE | 2023-11-01 06:30 | DI.US.S_ITS ---
PROCEDURE: US RENAL COMPLETE INDICATIONS: HYDRONEPHROSIS D/T OBSTRUCTION OF URETER TECHNIQUE: Real-time scanning was performed of the kidneys and bladder, with image documentation. COMPARISON: CT, CT KIDNEY URETER BLADDER (KUB), 07/06/2022, 18:17. [facility], US, US RENAL COMPLETE, 05/01/2022, 19:18. FINDINGS: Kidneys: Kidneys are atrophic. Right kidney measures 9.8 cm long; left kidney measures 7.8 cm long. Right renal cortical thickness is 1.2 cm; left renal cortical thickness is 0.9 cm. Renal cortical echotexture is normal. No hydronephrosis. Echogenic foci are present within the left kidney ranging from 5-6 mm. No suspicious solid mass lesions. Bladder: Pre-void bladder volume is 12 mL. Post-void residual is less than 1 mL. Pre-void images demonstrate no intraluminal masses or stones. On pre-void images, neither ureteral jets are noted with color Doppler interrogation. (Of note, ureteral jets may not be detectable in up to 25% of cases due to insufficient differences in specific gravity between ureteral and bladder urine). Miscellaneous: No free pelvic fluid. IMPRESSION: Bilateral renal atrophy. Nonobstructing left renal calculi. Dictated by: Eden Owusu M.D. on 11/01/2023 at 20:09 Approved by: Eden Owusu M.D. on 11/01/2023 at 20:10
== END ==
LOC: US 06:29
PROVIDERS: Family Provider Internal Medicine; PCP Physician Assistant; Referring Provider Physician Assistant Medical; Visit Provider Physician Assistant Medical
DX: N13.1 Hydronephrosis with ureteral stricture, not elsewhere classified (principal); N20.0 Calculus of kidney; N26.1 Atrophy of kidney (terminal)
CPT/HCPCS: 76770

== ENCOUNTER 2023-12-13 09:35 | Day surgery (SDC) | payer MEDICARE, OTHER, SELFPAY ==
[2021-10-19 17:19] VITALS: BMI 34.3
[2023-12-03 11:58] VITALS: BMI 35.3
[2023-12-13] VITALS (7 sets, daily range): BP systolic 108–146; BP diastolic 64–78; PULSE 63–87; RESP 13–24; TEMP 36.3–36.7; O2SAT 94–97; BMI 35.3
[2023-12-13] MEDS: LACTATED RINGERS 1,000 ML 42 ML IV ×2 (10:07→13:38)
[2023-12-13] MEDS: ACETAMINOPHEN 325 MG TABLET 975 MG PO (10:07)
--- NOTE | 2023-12-13 10:32 | PM.PREOP ---
Pre-operative Note Interval Note History & Physical reviewed/Exam performed by Physician: Yes Changes to H&P: No
--- NOTE | 2023-12-13 11:31 | SUR.PREOP ---
Block start time [1118] . Monitoring initiated and maintained throughout procedure. Oxygen and medications given per anesthesiologist instructions. Patient remained stable throughout procedure, no adverse reactions noted. Block end time [1125].
[2023-12-13] MEDS: TRANEXAMIC ACID 1,000 MG VIAL 1000 MG INJ (11:40)
[2023-12-13] MEDS: CLINDAMYCIN 900 MG in SODIUM CHLORIDE 0.9% 100 ML 106 MG IV (11:40)
[2023-12-13] MEDS: SODIUM CHLORIDE IRRIG SOLUTION 3,000 ML, EPINEPHrine 1 MG IRR (12:05)
[2023-12-13] MEDS: BUPIVACAINE 0.5% W/ EPI (PF) 30 ML VIAL INJ (12:08)
--- NOTE | 2023-12-13 12:15 | SUR.OPER ---
Lateral on padded OR bed with strange bag positioner, head on pillow, gel axillary roll in place, bottom leg bent with gel pad under knee to foot, upper leg straight and supported with pillows. Operative arm secured in shoulder positioning suspension device. non-operative arm secured on padded arm board. Safety belt at hip, tape over blanket securing lower legs.
[2023-12-13] MEDS: ONDANSETRON 4 MG/2 ML INJ IV (13:41)
--- NOTE | 2023-12-27 15:39 | PM.OP.1 ---
Operative Date/Time/Diagnoses Date of procedure: 12/13/23 Time of procedure: 15:39 Pre-op diagnosis: Left rotator cuff tear Post-op diagnosis: same Procedure & Clinicians Procedure: Left rotator cuff repair Same procedure as scheduled: Yes Indications: Indications: Deneen is a pleasant 73-year-old female who Has a history of left shoulder pain. Has had no response thus far to nonoperative treatment. We discussed at length that surgery for a rotator cuff tear is primarily for pain and no guarantees were made regarding strength and range of motion. Patient was again explained the risks, benefits and alternatives to surgery. All questions were answered. The patient wished to proceed. Surgeon: Tuan Howe Computer Networker: Vandana Owusu Anesthesia Type: General Operative Notes Findings: Findings: Glenohumeral joint-mild signs of osteoarthritis with grade 2 chondromalacia. There is degenerative changes noted to the labrum anteriorly and posteriorly Biceps tendon: Intact Subscapularis: Intact Inferior capsule: Intact Rotator cuff: The supraspinatus had a complete tear at the footprint Subacromial space: Extensive synovitis, acromial spur noted Closure Type: primary Specimen(s): none sent Prosthetic devices, grafts, tissues, transplants, or devices: SwiveLock x2, FiberTak x2 Estimated Blood Loss (mL): 10 Blood products transfused: none Procedure in detail: The patient was seen preoperatively. Risks and benefits were explained, and my initials were marked on the left shoulder. A block was performed by anesthesia. The patient was brought to the operating room and placed supine on the operating table and underwent smooth induction of general anesthesia. There were then placed into a lateral decubitus position. 2 g of Ancef were given intravenously prior to the start of the operation, and 1 g of TXA was also given. The arm was prepped and draped in the standard sterile fashion using chlorhexidine. Appropriate drying time was observed. Before beginning the procedure, a time-out was performed and again my initials were confirmed the correct side. 15 cc of 0.25% Marcaine with epinephrine were injected into the subacromial space prior to start. A standard posterior portal was then established. On entering the glenohumeral joint there was the above-noted cartilage pathology. An anterior portal was established outside in. In the glenohumeral joint, the biceps was noted to be partially torn and erythematous and the subscapularis was intact. The undersurface of the rotator cuff was torn at the footprint and was noted to be communicating. The inferior capsule was noted to be intact. There was some labral degeneration noted both anterior and posterior. Extensive synovitis noted. The labral tissue was examined, it was noted to have [id number] degenerative changes with fraying and tearing. There was subsequent expected degenerative changes in synovitis along the anterior articular capsule and a reflection of the capsule onto the glenoid bone. There were synovitic changes at the biceps tendon and its anchor on the supraglenoid tubercle. For these aforementioned reasons, arthroscopic debridement was performed with a 4.0 mm shaver, through the anterior portal, of the labral tissue, the articular capsule, biceps anchor complex, and glenoid bone. We then established into the subacromial space and a lateral portal was made. A bursectomy was then performed. The coracoclavicular ligament was minimally released off the anterior acromion and a gentle acromioplasty was performed enough for better visualization and to remove significant spurs. This was done with a 4.0 mm shaver and transformed the acromion from a type 2 acromion into a type 1 acromion. Once bursectomy, acromioplasty was performed we had full visualization of the rotator cuff. It was noted at this time that the patient had complete 1.5 cm tear of the supraspinatus. We then freshened up the footprint with a shaver and debrided the cuff tear edges. Two medial row Anchors were placed. I then passed sequentially from anterior to posterior. 2 lateral row trans osseous equivalent knotless anchors were placed creating a secure double row repair. Final arthroscopic pictures were obtained demonstrating a secure repair. The wounds were closed with 3-0 Monocryl and dressed with Xeroform, 4x4s, ABDs and they were placed into a sling. Patient was woken from anesthesia and transported to recovery unit without any complications. Assisting participation: This operation could not have been safely performed (without compromising the technical results or length of the procedure) without the assistance of a skilled surgical elastic knitter hand frame. The surgical elastic knitter hand frame was medically necessary for proper positioning, retraction and manipulation of instruments, proper exposure, graft prep, and manipulation of tissue. Complications: none Post-operative Condition: stable Disposition: PACU Plan for aftercare: Postoperatively patient will be nonweightbearing to the operative extremity. Must remain in a sling for 6 weeks with no active range of motion. Okay for dressings to come off in 3 days, take a shower with warm soap and water and then placed Band-Aids over the wounds. After a total of 5 days from surgery all dressings may come off. Keep follow-up appointment in 2 weeks.
== END 2023-12-13 14:05 | disposition home or self-care (01) ==
PROVIDERS: Family Provider Internal Medicine; PCP Physician Assistant; Referring Provider Orthopaedic Surgery; Visit Provider Orthopaedic Surgery
PROC: (CPT 29827; principal; 2023-12-13 11:15)
DX: M75.112 Incomplete rotator cuff tear or rupture of left shoulder, not specified as traumatic (principal); M75.22 Bicipital tendinitis, left shoulder; M75.42 Impingement syndrome of left shoulder; G89.18 Other acute postprocedural pain; W19.XXXA Unspecified fall, initial encounter; M19.012 Primary osteoarthritis, left shoulder; M94.212 Chondromalacia, left shoulder; S46.212A Strain of muscle, fascia and tendon of other parts of biceps, left arm, initial encounter; M65.812 Other synovitis and tenosynovitis, left shoulder
CPT/HCPCS: 29827; 29828; 29823; 29826; 64450; J0171; J0736; J1100; J1885; J2405; J2704; J3010

== ENCOUNTER → 2024-03-03 07:41 | Outpatient (CLI) | payer MEDICARE, OTHER, SELFPAY ==
[2021-10-19 17:19] VITALS: BMI 34.3
--- NOTE | 2024-03-03 | DI.CT.S_ITS ---
PROCEDURE: CT SHOULDER LEFT WITH CON INDICATIONS: LEFT SHOULDER PAIN TECHNIQUE: After the intra-articular administration of 12 mL of dilute non-ionic contrast, 1-1.5 mm thick sections acquired from the acromioclavicular joint to the inferior scapula, with coronal and sagittal reformatting. COMPARISON: None. FINDINGS: Image quality: Excellent. Bones: Mild degenerative changes of the acromioclavicular joint. Joint space of the glenohumeral joint is well maintained. No acute fracture or dislocation of the left shoulder. Status post prior rotator cuff repair with suture anchor at the humeral head. Soft tissues: There is full-thickness tear at the critical zone of the anterior fiber of the supraspinatus (series 3, image 43). There is additional full-thickness tear extending from the footprint of the mid fiber, to the critical zone of the junction of the supraspinatus and infraspinatus (series 3, image 55). The infraspinatus is unremarkable. The teres minor, and the subscapularis are intact. No significant fatty atrophy of the rotator cuff musculature. 6 mm pulmonary nodule in the left lower lobe (2:124). Pacer wire, partially visualized. No left axillary lymphadenopathy. IMPRESSION: 1. Mild degenerative changes of the acromioclavicular joint. 2. Status post prior rotator cuff repair. 3. Full-thickness, tear of the superior fiber of the supraspinatus. 4. Additional full-thickness tear of the mid footprint of supraspinatus, extending to the junction of the supraspinatus and infraspinatus. 5. 6 mm pulmonary nodule. Recommend CT chest in 6-12 months. Dictated by: Debby Walker M.D. on 03/03/2024 at 17:40 Approved by: Debby Walker M.D. on 03/03/2024 at 17:52
--- NOTE | 2024-03-03 07:43 | DI.RAD.S_ITS ---
PROCEDURE: FL SHOULDER INJECTION MR/CT LT INDICATIONS: STRAIN OF MUSCLE,TENDON LT SHOULDER COMPARISON: None. TECHNIQUE: The indications, alternatives, benefits, risks, and complications of the procedure were explained to the patient. Written informed consent was obtained and placed in the chart. The shoulder was examined fluoroscopically and a site for needle placement chosen for entry into the glenohumeral joint from an anterior approach. The skin was prepped and draped in a sterile fashion, and 1% lidocaine infiltrated from skin down to joint capsule. A spinal needle was inserted into the glenohumeral joint, and a small amount of iodinated contrast media injected to confirm intra-articular placement of the needle tip. This was followed by approximately 12 mL of iodinated contrast. The needle was removed and a dressing was applied. The patient was given postprocedural instructions and sent to the CT suite for imaging. FINDINGS: A single fluoroscopic spot image demonstrates intra-articular location of injected iodinated contrast. IMPRESSION: Successful fluoroscopically guided administration of iodinated contrast solution into the shoulder joint for CT arthrogram. Dictated by: Austen Foreman M.D. on 03/03/2024 at 9:21 Approved by: Austen Foreman M.D. on 03/03/2024 at 9:21
[2024-03-03] MEDS: LIDOCAINE 1% 20 ML INJ (09:00)
== END ==
PROVIDERS: Family Provider Internal Medicine; Referring Provider Physician Assistant; Visit Provider Physician Assistant
DX: S46.012A Strain of muscle(s) and tendon(s) of the rotator cuff of left shoulder, initial encounter (principal); R91.1 Solitary pulmonary nodule; X58.XXXA Exposure to other specified factors, initial encounter; Z98.890 Other specified postprocedural states
CPT/HCPCS: 23350; 73040; 73201; Q9967

== ENCOUNTER → 2024-07-11 06:55 | Outpatient (CLI) | payer MEDICARE, OTHER, SELFPAY ==
[2021-10-19 17:19] VITALS: BMI 34.3
--- NOTE | 2024-07-11 06:57 | DI.US.S_ITS ---
PROCEDURE: US ABDOMEN LIMITED INDICATIONS: ABDOMINAL PAIN, RIGHT LOWER TECHNIQUE: Real-time focused scanning was performed of the abdomen, with image documentation. COMPARISON: [facility], , US ABDOMEN LIMITED, 03/16/2021, 8:13. FINDINGS: Sonographic images of the umbilical region as well as lower quadrants demonstrate no visualized hernia. No abnormal mass or fluid collection. IMPRESSION: Unremarkable exam. Dictated by: Eden Owusu M.D. on 07/11/2024 at 13:42 Approved by: Eden Owusu M.D. on 07/11/2024 at 13:42
== END ==
PROVIDERS: Family Provider Internal Medicine
DX: R10.9 Unspecified abdominal pain (principal)
CPT/HCPCS: 76705

== ENCOUNTER → 2024-08-15 07:55 | Outpatient (CLI) | payer MEDICARE, OTHER, SELFPAY ==
[2021-10-19 17:19] VITALS: BMI 34.3
--- NOTE | 2024-08-15 07:56 | DI.CT.S_ITS ---
PROCEDURE: CT ABDOMEN PELVIS WO CON INDICATIONS: RUQ PAIN TECHNIQUE: Axial sections were acquired from the lung bases to the pubic symphysis. Coronal and sagittal reformats were performed. For radiation dose reduction, the following was used: automated exposure control, adjustment of mA and/or kV according to patient size. COMPARISON: [facility], CT, CT KIDNEY URETER BLADDER (KUB), 07/06/2022, 18:17. FINDINGS: Image quality: Diagnostic Lower chest: Unremarkable lung bases. Partially seen cardiac electrode leads. Small hiatal hernia. Liver: Solid organs are not well assessed without IV contrast. No contour deforming mass Gallbladder and biliary system: Cholecystectomy clips. Ectatic biliary system likely related to postsurgical state again seen. CBD measures 1 cm. Pancreas: Wohl-ub-mtesbgnl parenchymal atrophy. No ductal dilation. Spleen: Nonenlarged Adrenals: No discrete nodules Kidneys: No hydronephrosis. No obstructing calcified stone is seen. Small nonobstructing left renal calculi are seen, left lower pole largest calculus measures 5 mm. Vessels and lymph nodes: No abdominal aortic aneurysm. No pathologic lymph nodes by size criteria. Bowel and peritoneum: Mike-en-Y changes. No bowel obstruction. Normal diameter appendix. No drainable ascites. Colonic diverticula. Body wall: Postsurgical changes Pelvis: Bladder is unremarkable. Uterus is absent Bones: There are degenerative changes. No aggressive appearing focal osseous abnormality. IMPRESSION: Gallbladder is absent. Ectatic biliary system is seen, with CBD measuring 1 cm, similar to prior and may be related to postsurgical state. Correlate LFTs. Consider MRCP if there is further concern. Nonobstructing left lower pole renal calculi. No obstructing calcified stone. Other findings above on this noncontrast CT. Dictated by: Hay Aviles M.D. on 08/15/2024 at 10:04 Approved by: Hay Aviles M.D. on 08/15/2024 at 10:09
== END ==
PROVIDERS: Family Provider Internal Medicine
DX: N20.0 Calculus of kidney (principal); K86.89 Other specified diseases of pancreas; K44.9 Diaphragmatic hernia without obstruction or gangrene; R10.11 Right upper quadrant pain; Z90.49 Acquired absence of other specified parts of digestive tract; Z90.710 Acquired absence of both cervix and uterus; Z95.0 Presence of cardiac pacemaker
CPT/HCPCS: 74176

== ENCOUNTER → 2024-09-19 13:31 | Outpatient (CLI) | payer MEDICARE, OTHER, SELFPAY ==
[2021-10-19 17:19] VITALS: BMI 34.3
--- NOTE | 2024-09-19 13:33 | DI.RAD.S_ITS ---
PROCEDURE: XR CHEST 2V INDICATIONS: Shortness of breath TECHNIQUE: 2 views of the chest were acquired. COMPARISON: [facility], CR, XR CHEST 2V, 10/19/2021, 12:28. FINDINGS: Heart, mediastinum and pulmonary vascular: Heart is normal in size and configuration. Dual-chamber pacemaker leads in stable satisfactory position without complication. Mediastinum is unremarkable. Pulmonary vascular is normal. Lungs: Clear Pleural spaces: Normal-no effusions or pneumothorax. Bones and soft tissues: Mild chronic wedging throughout the upper midthoracic spine with moderate degenerative disc disease throughout the thoracic spine appreciated IMPRESSION: No acute cardiopulmonary disease Dictated by: Jose Francisco Maldonado M.D. on 09/22/2024 at 8:55 Approved by: Jose Francisco Maldonado M.D. on 09/22/2024 at 8:56
--- NOTE | 2024-09-19 13:33 | DI.RAD.S_ITS ---
PROCEDURE: XR LUMBAR SPINE MIN 4V INDICATIONS: BACK PAIN TECHNIQUE: 5 views of the lumbar spine were acquired, including bilateral oblique views. COMPARISON: [facility], CR, XR LUMBAR SPINE 2-3V, 10/09/2022, 22:49. FINDINGS: Bones: 5 nonrib-bearing vertebrae are present. There is hfrz-ln-ldtaucsw levoscoliosis of lumbar spine with apex at L3 level. 6 mm retrolisthesis of L1 on L2 and L2 on L3 is seen. No vertebral body compression fractures. There is interval worsening of degenerative disc disease throughout lumbar spine progressed since 2022 study. No suspicious bony lesions. Soft tissues: Overlying bowel gas pattern is normal. No suspicious soft tissue calcifications. Oblique images: No pars defects. Bilateral bony foraminal stenosis at L3-4 through L5-S1 levels are seen. IMPRESSION: Worsening degenerative disc disease in lumbar spine. No acute compression fracture. Grade 1 retrolisthesis at L1-2 and L2-3 levels. No gross pars defects. Bilateral bony foraminal stenosis at L3-4 through L5-S1 levels seen on oblique views. Dictated by: Andre Bonilla M.D. on 09/19/2024 at 14:23 Approved by: Andre Bonilla M.D. on 09/19/2024 at 14:25
== END ==
PROVIDERS: Family Provider Internal Medicine; Referring Provider Internal Medicine Cardiovascular Disease; Visit Provider Internal Medicine Cardiovascular Disease
DX: R06.02 Shortness of breath (principal); M54.9 Dorsalgia, unspecified; M51.369 Other intervertebral disc degeneration, lumbar region without mention of lumbar back pain or lower extremity pain; M43.16 Spondylolisthesis, lumbar region; M48.061 Spinal stenosis, lumbar region without neurogenic claudication; M48.07 Spinal stenosis, lumbosacral region
CPT/HCPCS: 71046; 72110

== ENCOUNTER 2024-10-02 09:35 | Outpatient (CLI) | payer MEDICARE, OTHER, SELFPAY ==
[2021-10-19 17:19] VITALS: BMI 34.3
[2024-10-02] VITALS (7 sets, daily range): BP systolic 113–160; BP diastolic 57–83; PULSE 60–84; RESP 10–16; TEMP 36.9; O2SAT 94–100
[2024-10-02] MEDS: MIDAZOLAM 2 MG/2 ML VIAL IV (10:45)
[2024-10-02] MEDS: BETAMETHASONE 30 MG/5 ML MDV 12 MG INJ (10:50)
[2024-10-02] MEDS: DEXAMETHASONE 10 MG/ML VIAL INJ (10:50)
[2024-10-02] MEDS: iopamidoL 15 ML VIAL 3 ML INJ (10:50)
[2024-10-02] MEDS: BUPIVACAINE 0.25% (PF) VIAL 2 ML INJ (10:51)
--- NOTE | 2024-10-02 11:02 | P.PCN_ITS ---
Date/Time/Diagnoses Date of procedure: 10/02/24 Time of procedure: 11:02 Pre-procedure diagnosis: 1. HNP WITH RADICULAR FEATURES, 2. MULTILEVEL CENTRAL STENOSIS, Post-procedure diagnosis: same Procedure Notes Procedure: 1. FLUOROSCOPICALLY GUIDED CONTRAST CONTROLLED INTERLAMINAR EPIDURAL STEROID INJECTION -L4/5 Indications: Deneen is referred by Dr. Stevens for treatment of Bilateral Foraminal Stenosis R>L LE symptoms. Physician: Hu Malloy Total Fluoroscopy time (seconds): 12 Total sedation minutes: 13 Complications: none Procedure in detail & Post-procedure care: FINDINGS Multilevel Central Spinal Stenosis with Nerve Root Compression DESCRIPTION OF PROCEDURE Fluoroscopically guided, contrast-controlled L4/5 translaminar epidural steroid injection. Following review of allergy and review of potential side effects and complications, including, but not necessarily limited to, infection, allergic reaction, local tissue breakdown, temporary as well as permanent nerve injury, paralysis, stroke and possible , the patient indicated that the patient understood and agreed to proceed. An informed consent document was signed by the patient, witnessed by a nurse, and placed in the patient's chart. Additionally, other treatment options including modalities, medications, and physical therapy were reviewed with the patient. After review of previous anaesthesic history and IV conscious sedation the patient was deemed safe to proceed with today?s procedure with IV conscious sedation as ASA class II designation. Safety time-out was performed to confirm patient ID, procedure to be performed and site of procedure. IV sedation was accomplished with a combination of 2mg of Versed was administered by the RN after DO order, titrated to patient comfort during the course of the procedure while the patient remained responsive to all verbal commands In the prone position, following sterile prep and drape of the lumbar region, the L4/5 translaminar space was identified fluoroscopically. The skin was anesthetized via a 25-gauge, 1.5inch needle with 1% lidocaine solution. At this point, a 22-gauge short bevel spinal needle was atraumatically introduced and advanced under fluoroscopic guidance into the region of the L4/5 translaminar space. Depth was confirmed on lateral view. Radiological data, including multiple fluoroscopic views of the lumbar spine, reveal a spinal needle at the L4/5 translaminar space. Lateral views then show placement of the needle in the epidural space. Subsequent views show contrast material flowing superiorly and inferiorly in the epidural space. No vascular or intrathecal uptake is observed. At this point, using loss of resistance technique with saline and air, the epidural space was entered. This was confirmed following negative aspiration with injection of approximately 1.5cc of Isovue 200, showing excellent epidural flow without vascular or intrathecal uptake. At this point, 1cc of 1% lidocaine solution combined with 3cc or 10mg of dexamethasone and 12mg betamethasone was injected without incident. The patient tolerated the procedure well without signs or symptoms of complications prior to transfer to the recovery area continued monitoring without incident. The patient was then transferred to the recovery area where they were observed for an appropriate period of time after the injection. The patient reported a VAS score of 6 prior to the procedure and a post- procedure VAS of 0. POST OP INSTRUCTIONS The patient was provided a Pain Log to continue to record their response to the target-specific procedure prior to follow-up visit with their referring physician. Additionally, specific post-injection care instructions and a contact number to our office were provided if concerns arise regarding possible complications associated with the procedure are suspected.
== END 2024-10-02 11:20 | disposition home or self-care (01) ==
PROVIDERS: Family Provider Internal Medicine; Referring Provider Physical Medicine & Rehabilitation; Visit Provider Physical Medicine & Rehabilitation
DX: M51.16 Intervertebral disc disorders with radiculopathy, lumbar region (principal); M48.061 Spinal stenosis, lumbar region without neurogenic claudication
CPT/HCPCS: 62323; 99152; J0702; J1100; J2250; J3490

== ENCOUNTER 2025-04-07 09:08 | Outpatient (CLI) | payer MEDICARE, OTHER, SELFPAY ==
[2025-02-25 15:42] VITALS: BMI 34.3
[2025-04-07] VITALS (11 sets, daily range): BP systolic 148–183; BP diastolic 63–84; PULSE 59–63; RESP 15–19; TEMP 36.4; O2SAT 97–100
[2025-04-07] MEDS: MIDAZOLAM 2 MG/2 ML VIAL IV (11:16)
[2025-04-07] MEDS: LIDOCAINE 2% INJ MDV 20ML 5 ML INJ (11:22)
[2025-04-07] MEDS: LIDOCAINE 1% 20 ML INJ (11:23)
--- NOTE | 2025-04-07 11:44 | PM.PROC.IR.1 ---
Date/Time/Diagnoses Date of procedure: 04/07/25 Time of procedure: 11:44 Pre-procedure diagnosis: 1. FACET ARTHROPATHY Post-procedure diagnosis: same Procedure Notes Procedure: 1. BILATERAL- L4, L5 and S1 DIAGNOSTIC MB BLOCKS with SA Anesthetic Indications: Deneen is referred by Dr. Stevens for treatment of Bilateral Axial LBP. Physician: Hu Malloy Total Fluoroscopy time (seconds): 14 Total sedation minutes: 21 Complications: none Procedure in detail & Post-procedure care: DESCRIPTION OF PROCEDURE Fluoroscopically guided, contrast-controlled bilateral L4, L5 and S1 medial branch blocks with 0.5cc of 2% Lidocaine. Following review of allergy and review of potential side effects and complications, including, but not necessarily limited to, infection, allergic reaction, local tissue breakdown, nerve injury, paralysis, stroke and possible , the patient indicated that the patient understood and agreed to proceed. An informed consent document was signed by the patient, witnessed by a nurse, and placed in the patient's chart. After review of previous anaesthesic history and IV conscious sedation the patient was deemed safe to proceed with today's procedure with IV conscious sedation as ASA class II designation. Safety time-out was performed to confirm patient ID, procedure to be performed and site of procedure. IV sedation was accomplished with a combination of 2mg of Versed was administered by the RN after DO order, titrated to patient comfort during the course of the procedure while the patient remained responsive to all verbal commands In the prone position, following sterile prep and drape of the lumbar region, the right L4, L5 and S1 anatomical location of the medial branch of the dorsal ramus was identified fluoroscopically. Subsequently an anesthetic skin wheal using 1% lidocaine solution was initiated at each of the anatomical spots. Subsequently then a 22-gauge 3.5-inch spinal needle was atraumatically introduced and advanced under fluoroscopic guidance at each of the corresponding sites at the right L4, L5 and S1 MB. After negative aspiration, 0.2cc of Isovue 200 was injected, confirming placement without vascular or intrathecal uptake. Subsequently then 0.5cc of 2% Lidocaine solution was injected at each of the corresponding sites at the right L4, L5 and S1 medial branch locations. The identical procedure was replicated on the left. The patient tolerated the procedure well without signs or symptoms of complications prior to transfer to the recovery area continued monitoring without incident. Post-procedure, the patient was monitored initiating provocative activities to measure the amount of relief from block of the facetogenic pain. The patient reported a VAS of 7 prior to the procedure and a post-procedure VAS of 1. It has been a pleasure to assist in the diagnostic and therapeutic care of your patient. POST OP INSTRUCTIONS The patient was provided with a Pain Log to complete over the next several hours and subsequent days prior to the patient's follow up with the ordering physician. If the patient has mail delivery supervisor relief to the solution applied, then they may be a candidate for medial branch rhizotomy. The patient is aware, was provided, once again, with a Pain Log and will follow up with the referring physician for review and clinical correlation
== END 2025-04-07 12:15 | disposition home or self-care (01) ==
PROVIDERS: Family Provider Internal Medicine; Referring Provider Physical Medicine & Rehabilitation; Visit Provider Physical Medicine & Rehabilitation
DX: M47.816 Spondylosis without myelopathy or radiculopathy, lumbar region (principal); M47.817 Spondylosis without myelopathy or radiculopathy, lumbosacral region
CPT/HCPCS: 64493; 64494; 99152; J2250

== ENCOUNTER 2025-06-02 07:39 | Outpatient (CLI) | payer MEDICARE, OTHER, SELFPAY ==
[2025-02-25 15:42] VITALS: BMI 34.3
[2025-06-02] VITALS (14 sets, daily range): BP systolic 102–144; BP diastolic 55–74; PULSE 60–76; RESP 12–20; TEMP 36.6; O2SAT 96–100
[2025-06-02] MEDS: MIDAZOLAM 2 MG/2 ML VIAL 1 MG IV ×2 (08:38→08:54)
[2025-06-02] MEDS: LIDOCAINE 1% 20 ML 5 ML INJ (08:46)
--- NOTE | 2025-06-02 09:27 | P.PCN_ITS ---
Date/Time/Diagnoses Date of procedure: 06/02/25 Time of procedure: 09:27 Pre-procedure diagnosis: 1. RECALCITRANT FACET ARTHROPATHY Post-procedure diagnosis: same Procedure Notes Procedure: 1. BILATERAL L4 AND L5 MEDIAL BRANCH RADIOFREQUENCY NEUROTOMY AND S1 DORSAL RAMUS BRANCH RADIOFREQUENCY NEUROTOMY Indications: Deneen is referred for treatment of facet arthropathy. Physician: Hu Malloy Total Fluoroscopy time (seconds): 23 Total sedation minutes: 42 Complications: none Procedure in detail & Post-procedure care: DESCRIPTION OF PROCEDURE Bilateral L4 and L5 medial branch radiofrequency neurotomy and bilateral S1 dorsal ramus radiofrequency neurotomy under fluoroscopy with conscious sedation. The patient is well known to this clinic having undergone previous facet injections with good but temporary relief. The patient has experienced appropriate, concordant relief with previous facet and median branch blocks but the patient's pain has been recalcitrant to further conservative measures. Therefore, based upon the patient's relief and persistent symptoms, the patient is considered an appropriate candidate for facet rhizotomy. All of the patient's questions regarding the risks versus benefits of the procedure, including, but not limited to, bleeding, infection, temporary as well as lasting nerve injury, paralysis, stroke, and , as well treatment alternatives were answered to satisfaction. After obtaining informed consent, denial of pertinent drug allergies, as well as being made aware of the potential risks of bleeding, infection, spinal cord trauma, paralysis, temporary and permanent nerve damage, seizure, stroke, and possible , the patient was brought to the fluoroscopy suite and positioned prone on the fluoroscopy table. The lumbar region was prepped in usual sterile fashion and covered with a fenestrated drape in the usual sterile fashion. Appropriate monitors applied including pulse oximeter, pulse, and blood pressure for regular monitoring throu ghout the procedure. After review of previous anaesthesic history and IV conscious sedation the patient was deemed safe to proceed with today's procedure with IV conscious sedation as ASA class II designation. Safety time-out was performed to confirm patient ID, procedure to be performed and site of procedure. IV sedation was accomplished with a combination of 2mg of Versed administered by the RN after DO order, titrated to patient comfort during the course of the procedure while the patient remained responsive to all verbal commands. After local infiltration using 1% lidocaine, under fluoroscopic guidance, a 10- cm RF insulated needle with a 10-mm active tip was positioned parallel to the junction of the right sacral ala and the superior articulating process where the S1 dorsal ramus resides. Needle placement was confirmed with motor stimulation of .5v on the right which produced local stimulation without radicular component. The stimulation was then increased to 2v with, once again, only local multifidus stimulation without radicular component. The needle was then removed and the identical procedure was performed along the length of the right L5 medial branch with motor stimulation at .7v on the right. The identical procedure was once again performed along the length of the right L4 medial branch with motor stimulation of .5v on the right. The medial branches were then anesthetised with 0.5% Marcaine. This was then followed by two discreet lesions performed at 80 degrees Celsius for 90 seconds each. The identical procedure was repeated on the left. The patient tolerated the procedure well without signs or symptoms of complications prior to transfer to the recovery area continued monitoring without incident. The patient was then transferred to the recovery area where they were observed for an appropriate period of time after the injection. The patient reported a VAS score of 9 prior to the procedure and a post-procedure VAS of 0. POST OP INSTRUCTIONS The patient was provided a Pain Log to continue to record the patient's response to the target-specific procedure prior to the patient's follow-up visit with the referring physician. Additionally, specific post-injection care instructions and a contact number to our office were provided if concerns arise regarding possible complications associated with the procedure are suspected.
== END 2025-06-02 09:53 | disposition home or self-care (01) ==
LOC: RAD 07:40
PROVIDERS: Referring Provider Physical Medicine & Rehabilitation; Visit Provider Physical Medicine & Rehabilitation
DX: M47.816 Spondylosis without myelopathy or radiculopathy, lumbar region (principal); M47.817 Spondylosis without myelopathy or radiculopathy, lumbosacral region
CPT/HCPCS: 64635; 64636; 99152; 99153; J2250